=== PATIENT | male | born 1950 | race Caucasian/White ===

== ENCOUNTER 2017-02-22 11:48 | Day surgery (SDC) | payer MEDICARE ==
[2017-02-15 12:29] VITALS: BMI 31.0
[~2017-02-22 11:48] MED LIST: LACTATED RINGERS 1,000 ML IV SCH; LIDOCAINE 1% 20 ML VIAL (10MG/ML) FOR IV START INTRADERMA PRN
[2017-02-22] MEDS: CYCLOPENTOLATE 1% OPHTH SOLN 2 ML BTL OP ONE ×3 (13:20→13:45)
[2017-02-22] MEDS: PHENYLEPHRINE 10% OPHTH DROPS 5 ML BTL OP ONE ×3 (13:25→13:55)
[2017-02-22 13:29] VITALS: RESP 16; TEMP 96.9
[2017-02-22] MEDS: KETOROLAC 0.5% OPHTH DROPS 3 ML BTL OP ONE ×2 (13:30→13:50)
[2017-02-22] MEDS ORDERED: PROPOFOL 10 MG/ML 20 ML VIAL IV ONE (14:09)
[2017-02-22] MEDS ORDERED: EPINEPHrine (PF) 0.5 ML in BALANCED SALT IRRIG SOLN COMB2 500 ML IRRIGATION ONE (14:12)
[2017-02-22] MEDS ORDERED: BALANCED SALT IRRIG SOLN COMB2 15 ML IRRIG.SOLN IRRIGATION ONE (14:15)
[2017-02-22] MEDS ORDERED: HYALURONATE SODIUM INTRAOCULAR 1 EACH SYRINGE (10MG/ML) INTRAOCULA ONE (14:15)
--- NOTE | 2017-02-22 14:34 | P.OP ---
Date of Procedure: 02/22/17 Preoperative Diagnosis: Postoperative Diagnosis: Procedure(s) Performed: PREOPERATIVE DIAGNOSIS: Cataract, right eye. POSTOPERATIVE DIAGNOSIS: Cataract, right eye. OPERATION: Phacoemulsification cataract, right eye. DESCRIPTION OF PROCEDURE: The patient was taken to the preoperative holding area. Intravenous Propofol was given so as to bring about adequate sedation. The following mixture was given for local anesthesia: 5 mL of 2% lidocaine, 5 mL of 0.75% Marcaine, and 1 mL of Wydase. Approximately 4 mL was injected in the retrobulbar space of the surgical eye. Additional 1 mL was then directed to the temporal area of the surgical eye. This was performed to allow adequate neurological block of the facial muscles. The patient was revived and then taken into the operative room. The patient was prepped and draped in the usual sterile manner for the operative eye. A lid speculum was put into position. The conjunctiva was resected back from the limbus in the 12 o'clock position. Bleeding was controlled with electrocautery. A #69 blade was then used and a half-thickness scleral incision approximately 1-mm posterior to the limbus was made on bare sclera. This was shelved in the clear cornea using a crescent knife. Next a 15-degree blade was used to make a stab incision at the 3 o' clock position at the corneolimbal interface. Keratome blade was then used and the superior wound was extended into the anterior chamber. Viscoelastic was injected into the anterior chamber and to maintain its form. A Maluygin ring was injected into the anterior chamber and the pupil was stretched into position. Next, a cystotome was used and a continuous anterior capsulotomy was made without difficulty. Hydrodissection using a blunt cannula and BSS was performed. Phaco probe was then employed and a groove extending from 12 to 6 o' clock in the lens was created. A Isiah wand was used through the stab incision so as to perform a divide and conquer technique. Next an irrigation aspiration probe was utilized and any residual cortex was removed from the eye. Again, viscoelastic was injected into the anterior chamber. An Rashawn posterior chamber lens implant was placed in the cartridge and injected into the anterior chamber without difficulty. The Sinskey hook was utilized to spin the lens into position and this was again performed without any difficulty. The Maluygin ring was removed from the eye. The irrigation and aspiration probe was again employed and any residual viscoelastic was removed from the eye. Then BSS was injected into the limbal stab incision and the anterior chamber re-inflated. The conjunctiva was reapproximated using electrocautery. One drop of 0.25% Timoptic was placed over the corneal along with TobraDex ophthalmic ointment. Two sterile patches and a Benavides eye shield were taped into position. The patient was transported to the recovery room in stable condition. Implants: Pathology: none sent Condition: stable Disposition: same day Indications for Procedure: Operative Findings: Description of Procedure:
[2017-02-22 14:54] VITALS: BP 144/70; PULSE 50
[2017-02-22] MEDS ORDERED: GENTAMICIN/PREDNISOL AC OPHTH OINT 3.5GM OPHTHALMIC ONE (23:00)
[2017-02-22] MEDS ORDERED: TIMOLOL 0.5% OPHTH SOLN (PF) 0.2 ML DROPERETTE OP ONE (23:00)
[2017-02-22] MEDS ORDERED: BUPIVACAINE (PF) 0.75% 5 ML, LIDOCAINE 4% (PF) 5 ML, HYALURONIDASE, HUMAN RECOMB 150 UNIT MISCELLANE ONE ×3 (23:00)
== END 2017-02-22 15:06 | disposition home or self-care (01) ==
LOC: OR 11:48
PROVIDERS: ATTEND Ophthalmology
DX: H25.11 Age-related nuclear cataract, right eye (principal); H40.059 Ocular hypertension, unspecified eye; I10 Essential (primary) hypertension; E78.5 Hyperlipidemia, unspecified; I48.91 Unspecified atrial fibrillation; Z79.82 Long term (current) use of aspirin; Z79.899 Other long term (current) drug therapy; Z88.5 Allergy status to narcotic agent; Z87.891 Personal history of nicotine dependence
CPT/HCPCS: 66984; V2632; J2001; J3470; J0171; J2704

== ENCOUNTER 2017-04-19 08:51 | Day surgery (SDC) | payer MEDICARE ==
[2017-04-15 08:46] VITALS: BMI 31.0
[~2017-04-19 08:51] MED LIST changes: -LIDOCAINE 1% 20 ML VIAL (10MG/ML) FOR IV START INTRADERMA PRN
[2017-04-19] MEDS: PHENYLEPHRINE 10% OPHTH DROPS 5 ML BTL OP ONE ×3 (09:32→09:46)
[2017-04-19 09:34] VITALS: RESP 16
[2017-04-19] MEDS: CYCLOPENTOLATE 1% OPHTH SOLN 2 ML BTL OP ONE ×3 (09:34→09:48)
[2017-04-19] MEDS: KETOROLAC 0.5% OPHTH DROPS 5 ML BTL OP ONE ×3 (09:36→09:50)
[2017-04-19 09:37] VITALS: TEMP 97.8
[2017-04-19] MEDS ORDERED: PROPOFOL 10 MG/ML 20 ML VIAL IV ONE (10:22)
[2017-04-19] MEDS ORDERED: BALANCED SALT IRRIG SOLN COMB2 15 ML IRRIG.SOLN INTRAOCULA ONE (10:23)
[2017-04-19] MEDS ORDERED: HYALURONATE SODIUM INTRAOCULAR 1 EACH SYRINGE (10MG/ML) INTRAOCULA ONE (10:24)
[2017-04-19] MEDS ORDERED: EPINEPHrine (PF) 0.5 ML in BALANCED SALT IRRIG SOLN COMB2 500 ML IRRIGATION ONE (10:28)
--- NOTE | 2017-04-19 10:48 | P.OP ---
Date of Procedure: 04/19/17 Procedure(s) Performed: PREOPERATIVE DIAGNOSIS: Cataract, left eye. POSTOPERATIVE DIAGNOSIS: Cataract, left eye. OPERATION: Phacoemulsification cataract, left eye. DESCRIPTION OF PROCEDURE: The patient was taken to the preoperative holding area. Intravenous Propofol was given so as to bring about adequate sedation. The following mixture was given for local anesthesia: 5 mL of 2% lidocaine, 5 mL of 0.75% Marcaine, and 1 mL of Wydase. Approximately 4 mL was injected in the retrobulbar space of the surgical eye. Additional 1 mL was then directed to the temporal area of the surgical eye. This was performed to allow adequate neurological block of the facial muscles. The patient was revived and then taken into the operative room. The patient was prepped and draped in the usual sterile manner for the operative eye. A lid speculum was put into position. The conjunctiva was resected back from the limbus in the 12 o'clock position. Bleeding was controlled with electrocautery. A #69 blade was then used and a half-thickness scleral incision approximately 1-mm posterior to the limbus was made on bare sclera. This was shelved in the clear cornea using a crescent knife. Next a 15-degree blade was used to make a stab incision at the 3 o' clock position at the corneolimbal interface. Keratome blade was then used and the superior wound was extended into the anterior chamber. Viscoelastic was injected into the anterior chamber and to maintain its form. A Maluygin ring was injected and the pupil was stretched to maintain dilation. Next, a cystotome was used and a continuous anterior capsulotomy was made without difficulty. Hydrodissection using a blunt cannula and BSS was performed. Phaco probe was then employed and a groove extending from 12 to 6 o'clock in the lens was created. A Isiah wand was used through the stab incision so as to perform a divide and conquer technique. Next an irrigation aspiration probe was utilized and any residual cortex was removed from the eye. Again, viscoelastic was injected into the anterior chamber. An Rashawn posterior chamber lens implant was placed in the cartridge and injected into the anterior chamber without difficulty. The Sinskey hook was utilized to spin the lens into position and this was again performed without any difficulty. The Maluygin ring was removed from the eye. The irrigation and aspiration probe was again employed and any residual viscoelastic was removed from the eye. Then BSS was injected into the limbal stab incision and the anterior chamber re- inflated. The conjunctiva was reapproximated using electrocautery. One drop of 0.25% Timoptic was placed over the corneal along with TobraDex ophthalmic ointment. Two sterile patches and a Benavides eye shield were taped into position. The patient was transported to the recovery room in stable condition. Pathology: none sent Condition: stable Disposition: same day
[2017-04-19 11:08] VITALS: BP 165/69; PULSE 43
[2017-04-19] MEDS ORDERED: BUPIVACAINE (PF) 0.75% 5 ML, LIDOCAINE 4% (PF) 5 ML, HYALURONIDASE, HUMAN RECOMB 150 UNIT MISCELLANE ONE ×3 (23:00)
[2017-04-19] MEDS ORDERED: GENTAMICIN/PREDNISOL AC OPHTH OINT 3.5GM OPHTHALMIC ONE (23:00)
[2017-04-19] MEDS ORDERED: TIMOLOL 0.5% OPHTH SOLN (PF) 0.2 ML DROPERETTE OP ONE (23:00)
== END 2017-04-19 11:33 | disposition home or self-care (01) ==
LOC: OR 08:51
PROVIDERS: ATTEND Ophthalmology
DX: H25.12 Age-related nuclear cataract, left eye (principal); H40.059 Ocular hypertension, unspecified eye; I10 Essential (primary) hypertension; I48.91 Unspecified atrial fibrillation; E78.5 Hyperlipidemia, unspecified; Z88.5 Allergy status to narcotic agent; Z79.82 Long term (current) use of aspirin; Z79.899 Other long term (current) drug therapy
CPT/HCPCS: 66984; V2632; J2001; J3470; J0171; J2704

== ENCOUNTER 2018-07-02 21:34 | Observation (INO) | payer MEDICARE ==
[2018-07-02] MEDS ORDERED: NITROGLYCERIN SL TABS 0.4 MG TAB SUBLINGUAL STA (21:55)
[2018-07-02] MEDS ORDERED: ASPIRIN 81 MG PO STA (21:55)
--- NOTE | 2018-07-02 22:07 | ED ---
Chest Pain HPI - General Source: patient, RN notes reviewed Mode of arrival: wheelchair Limitations: no limitations <Konrad Raman - Last Filed: 07/02/18 23:43> <Marisol Jones - Last Filed: 07/07/18 02:02> - General Chief Complaint: Chest Pain Stated Complaint: Chest pain Time Seen by Provider: 07/02/18 21:54 - History of Present Illness Initial Comments: This a 67-year-old male presents emergency Department chief complaint of chest pain. Patient states started around 8:00 this evening. Patient states pain has resolved at this time. He did admit to pressure and feeling that he was suffocating that time. Patient is concerned has he recently had issues with his blood pressure states that his blood pressure has been slightly elevated he does have a follow-up plan with cardiology for this. He's had no prior cardiac or stenting. Patient states she does have a history of hyperlipidemia denies diabetes, smoking history and second heart disease. Patient states his chest pain is resolved no shortness breath at this time he was slightly diaphoretic when the pain started. Patient also minutes is benign. Anxious and he had a recent in the family related to a heart attack. (Konrad Raman) - Related Data Home Medications Medication Instructions Recorded Confirmed Aspirin 81 mg PO DAILY 09/13/14 07/03/18 Lisinopril-Hctz 20-12.5 mg 1 dose PO DAILY 09/13/14 07/03/18 [Zestoretic 20-12.5] Simvastatin [Zocor] 40 mg PO HS 09/13/14 07/03/18 Ascorbic Acid [Vitamin C] 500 mg PO DAILY 06/06/15 07/03/18 Meloxicam [Mobic] 15 mg PO DAILY 06/06/15 07/03/18 Cholecalciferol (Vitamin D3) 2,000 unit PO DAILY 02/15/17 07/03/18 [Vitamin D3] Tamsulosin [Flomax] 0.4 mg PO BID 07/03/18 07/03/18 Previous Rx's Medication Instructions Recorded amLODIPine [Norvasc] 5 mg PO DAILY #30 tab 07/05/18 Allergies Allergy/AdvReac Type Severity Reaction Status Date / Time morphine AdvReac Severe Nausea Verified 07/03/18 08:02 Review of Systems ROS Other: All systems not noted in ROS Statement are negative. <Konrad Raman - Last Filed: 07/02/18 23:43> ROS Other: All systems not noted in ROS Statement are negative. <Marisol Jones Cristina - Last Filed: 07/07/18 02:02> ROS Statement: Those systems with pertinent positive or pertinent negative responses have been documented in the HPI. EKG Findings - EKG Comments: EKG Findings:: EKG performed at 21:48 sinus bradycardia with a rate of 59 CA 180 QRS 82 QT/QTC 418/413 <Konrad Raman - Last Filed: 07/02/18 23:43> Past Medical History Past Medical History: Atrial Fibrillation, Cancer, Eye Disorder, GERD/Reflux, Hyperlipidemia, Hypertension Additional Past Medical History / Comment(s): SKIN CANCER, EPISODE OF A-FIB 2 YRS AGO-NOT PROBLEMS SINCE. CATARACTS History of Any Multi-Drug Resistant Organisms: None Reported Past Surgical History: Appendectomy, Back Surgery, Heart Catheterization, Orthopedic Surgery Additional Past Surgical History / Comment(s): BILATERAL rotator cuff, CYSTS REMOVED FROM NECK AND TAIL BONE, CIRCUMCISION AT AGE 40. ,COLONOSCOPY; R CATARACT Past Anesthesia/Blood Transfusion Reactions: No Reported Reaction Past Psychological History: No Psychological Hx Reported Smoking Status: Never smoker Past Alcohol Use History: None Reported Past Drug Use History: None Reported - Past Family History Father Family Medical History: Cancer Additional Family Medical History / Comment(s): COLON CA Mother Family Medical History: Cancer, Dementia, Diabetes Mellitus, Hypertension <Konrad Raman - Last Filed: 07/02/18 23:43> General Exam Limitations: no limitations General appearance: alert, in no apparent distress Head exam: Present: atraumatic, normocephalic, normal inspection Eye exam: Present: normal appearance, PERRL, EOMI. Absent: scleral icterus, conjunctival injection, periorbital swelling ENT exam: Present: normal exam, normal oropharynx, mucous membranes moist, TM's normal bilaterally, normal external ear exam Neck exam: Present: normal inspection, full ROM. Absent: tenderness, meningismus, lymphadenopathy Respiratory exam: Present: normal lung sounds bilaterally. Absent: respiratory distress, wheezes, rales, rhonchi, stridor Cardiovascular Exam: Present: regular rate, normal rhythm, normal heart sounds. Absent: systolic murmur, diastolic murmur, rubs, gallop, clicks GI/Abdominal exam: Present: soft, normal bowel sounds. Absent: distended, tenderness, guarding, rebound, rigid Back exam: Absent: CVA tenderness (R), CVA tenderness (L) Skin exam: Present: warm, dry, intact, normal color. Absent: rash <Dedoe,Konrad M - Last Filed: 07/02/18 23:43> Vital Signs 07/02/18 07/02/18 07/02/18 21:39 22:02 22:10 Temperature 98.3 F Pulse Rate 62 Pulse Rate [ [employer] ] Respiratory 18 Rate Blood Pressure 180/83 185/92 Blood Pressure [Right Arm] O2 Sat by Pulse 100 99 98 Oximetry 07/02/18 07/02/18 07/02/18 22:20 22:30 22:40 Temperature Pulse Rate 48 L Pulse Rate [ [employer] ] Respiratory 15 Rate Blood Pressure 185/92 185/92 Blood Pressure [Right Arm] O2 Sat by Pulse 99 97 Oximetry 07/02/18 07/02/18 07/02/18 22:50 23:00 23:10 Temperature Pulse Rate 51 L 48 L 40 L Pulse Rate [ [employer] ] Respiratory 14 15 14 Rate Blood Pressure 164/83 161/81 162/87 Blood Pressure [Right Arm] O2 Sat by Pulse 97 98 98 Oximetry 07/02/18 07/02/18 07/02/18 23:20 23:30 23:40 Temperature Pulse Rate 47 L 45 L 48 L Pulse Rate [ [employer] ] Respiratory 16 12 11 L Rate Blood Pressure 174/76 163/80 155/85 Blood Pressure [Right Arm] O2 Sat by Pulse 97 98 98 Oximetry 07/02/18 07/03/18 07/03/18 23:50 00:00 00:06 Temperature Pulse Rate 48 L 47 L 49 L Pulse Rate [ [employer] ] Respiratory 12 17 15 Rate Blood Pressure 166/87 165/82 164/80 Blood Pressure [Right Arm] O2 Sat by Pulse 98 98 98 Oximetry 07/03/18 07/03/18 07/03/18 00:10 00:20 00:30 Temperature Pulse Rate 46 L 48 L 49 L Pulse Rate [ [employer] ] Respiratory 9 L 11 L 12 Rate Blood Pressure 164/80 164/81 150/75 Blood Pressure [Right Arm] O2 Sat by Pulse 98 98 98 Oximetry 07/03/18 07/03/18 07/03/18 00:40 00:50 01:00 Temperature Pulse Rate 48 L 48 L 49 L Pulse Rate [ [employer] ] Respiratory 14 17 15 Rate Blood Pressure 167/82 141/88 165/86 Blood Pressure [Right Arm] O2 Sat by Pulse 96 97 98 Oximetry 07/03/18 07/03/18 07/03/18 01:10 01:20 02:00 Temperature Pulse Rate 45 L 45 L 49 L Pulse Rate [ [employer] ] Respiratory 15 15 17 Rate Blood Pressure 155/84 162/76 154/76 Blood Pressure [Right Arm] O2 Sat by Pulse 98 98 98 Oximetry 07/03/18 07/03/18 07/03/18 03:00 04:00 05:00 Temperature Pulse Rate 44 L 41 L 39 L Pulse Rate [ [employer] ] Respiratory 9 L 15 13 Rate Blood Pressure 167/81 167/81 132/71 Blood Pressure [Right Arm] O2 Sat by Pulse 98 96 98 Oximetry 07/03/18 07/03/18 07/03/18 06:00 08:00 09:43 Temperature Pulse Rate 39 L 48 L Pulse Rate [ 45 L [employer] ] Respiratory 13 18 18 Rate Blood Pressure 132/71 141/74 Blood Pressure 151/81 [Right Arm] O2 Sat by Pulse 98 98 97 Oximetry 07/03/18 07/03/18 07/03/18 11:00 12:00 14:00 Temperature 98.5 F Pulse Rate 45 L 46 L 42 L Pulse Rate [ [employer] ] Respiratory 16 16 15 Rate Blood Pressure 146/71 146/71 152/75 Blood Pressure [Right Arm] O2 Sat by Pulse 98 99 99 Oximetry 07/03/18 15:00 Temperature 97.8 F Pulse Rate 44 L Pulse Rate [ [employer] ] Respiratory 15 Rate Blood Pressure 153/82 Blood Pressure [Right Arm] O2 Sat by Pulse 99 Oximetry Chest Pain MDM <Konrad Raman - Last Filed: 07/02/18 23:43> <Marisol Jones - Last Filed: 07/07/18 02:02> - [facility] Patient had initial workup including lab work, EKG and chest x-ray. Patient had negative troponin, no acute EKG changes. Patient will be placed in the house on heparin with repeat troponins, cardiology evaluation. (Konrad Raman) I was available for consultation in the emergency department. The history and physical exam were done by the midlevel provider. I was consulted for this patient's care. I reviewed the case with the midlevel provider and based on their presentation of the patient, I agree with the assessment, medical decision making and plan of care as documented. I discussed patient care with the admitting physician and placed admission orders. (Marisol Jones) Disposition <Konrad Raman - Last Filed: 07/02/18 23:43> <Marisol Jones - Last Filed: 07/07/18 02:02> Clinical Impression: Chest pain Disposition: ADMITTED IP TO THIS HOSP Condition: Fair
[2018-07-02 22:26] LABS: Basophils # (A) 0.1 k/uL (0-0.2); Basophils % (A) 1 %; Eosinophils # (A) 0.2 k/uL (0-0.7); Eosinophils % (A) 3 %; HCT 42.1 % (39.0-53.0); HGB 14.6 gm/dL (13.0-17.5); Lymphocytes # (A) 1.9 k/uL (1.0-4.8); Lymphocytes % (A) 35 %; MCH 31.6 pg (25.0-35.0); MCHC 34.8 g/dL (31.0-37.0); MCV 90.8 fL (80.0-100.0); Mean Platelet Volume 7.5; Monocytes # (A) 0.4 k/uL (0-1.0); Monocytes % (A) 7 %; Neutrophils # (A) 2.7 k/uL (1.3-7.7); Neutrophils % (A) 51 %; Platelet Count 156 k/uL (150-450); RBC 4.63 m/uL (4.30-5.90); RDW 12.1 % (11.5-15.5); WBC 5.4 k/uL (3.8-10.6)
--- NOTE | 2018-07-02 22:31 | XR ---
EXAMINATION TYPE: XR chest 2V DATE OF EXAM: 07/02/2018 COMPARISON: 06/11/2015 HISTORY: Chest pain TECHNIQUE: Frontal and lateral views of the chest are obtained. FINDINGS: Heart and mediastinum are normal. Lungs are clear. Diaphragm is normal. Bony thorax appear s normal. IMPRESSION: Normal chest. No change.
[2018-07-02 22:34] LABS: INR 0.9 (<1.2); Partial Thromboplastin Time 25.6 sec (22.0-30.0); Prothrombin Time 9.9 sec (9.0-12.0)
[2018-07-02 22:54] LABS: ALT 27 U/L (21-72); AST 27 U/L (17-59); Albumin 4.2 g/dL (3.5-5.0); Alkaline Phosphatase 57 U/L (38-126); Anion Gap 10 mmol/L; Blood Urea Nitrogen 22 mg/dL (9-20); Calcium 9.7 mg/dL (8.4-10.2); Carbon Dioxide 27 mmol/L (22-30); Chloride 102 mmol/L (98-107); Creatine Kinase 128 U/L (55-170); Glucose 100 mg/dL (74-99); Magnesium 2.2 mg/dL (1.6-2.3); Potassium 4.6 mmol/L (3.5-5.1); Sodium 139 mmol/L (137-145); Total Bilirubin 0.5 mg/dL (0.2-1.3); Total Protein 7.1 g/dL (6.3-8.2)
[2018-07-02 23:06] LABS: Creatine Kinase MB 1.1 ng/mL (0.0-2.4); Troponin I <0.012 ng/mL (0.000-0.034)
[2018-07-02] MEDS ORDERED: NITROGLYCERIN SL TABS 0.4 MG TAB SUBLINGUAL PRN (23:44)
[2018-07-02] MEDS ORDERED: HEPARIN SODIUM,PORCINE 5,000 UNIT/ML 1 ML VIAL IV ONE (23:44)
[2018-07-03] MEDS: HEPARIN SOD,PORK IN 0.45% NACL 25,000 UNIT in 0.45% NACL 1 250ML.BAG IV SCH (01:24)
[2018-07-03] MEDS ORDERED: ALPRAZolam 0.25 MG TAB PO PRN (01:30)
[2018-07-03] MEDS ORDERED: TEMAZEPAM 15 MG CAP PO PRN (01:30)
[2018-07-03] MEDS: ACETAMINOPHEN TAB 325 MG TAB PO PRN ×2 (01:36→12:51)
[2018-07-03 03:44] LABS: Cholesterol 159 mg/dL (<200); HDL Cholesterol 68 mg/dL (40-60); LDL Cholesterol,Calculated 82 mg/dL (0-99); Triglycerides 46 mg/dL (<150)
[2018-07-03 04:19] LABS: Creatine Kinase 98 U/L (55-170)
[2018-07-03 04:33] LABS: Creatine Kinase MB 0.8 ng/mL (0.0-2.4); Troponin I <0.012 ng/mL (0.000-0.034)
--- NOTE | 2018-07-03 07:28 | HP ---
HISTORY AND PHYSICAL DATE OF SERVICE: 07/02/2018 CHIEF COMPLAINT: Chest pain. HISTORY OF PRESENT ILLNESS: This is a 67-year-old gentleman with a past medical history of multiple medical problems such as atrial fibrillation, history of GERD, hypertension, hyperlipidemia being followed by Dr. Lemos in the outpatient setting, was admitted to [facility] with complaints of chest pain which was precordial, which was most of a pressure discomfort. Three weeks ago, the patient blood pressure 220/90 and the blood pressure has been monitored. Systolic blood pressure was noted. There is no history of fever or rigors. No history of headache, loss of consciousness, seizures. Patient also had a previous cardiac catheterization about two years ago, but 20% stenosis, results are not available at this time according to him. There is no history of headache, loss of consciousness, seizures at this time. PAST MEDICAL HISTORY: Atrial fibrillation, history of GERD, hypertension, hyperlipidemia, skin cancer, history of back surgery, cardiac catheterization. MEDICATIONS: Home medications prior to admission include: 1. Zocor 40 mg q.h.s. 2. Mobic 15 mg p.o. daily. 3. Zestoretic 10/25 mg p.o. daily. 4. Vitamin D3 two thousand daily. 5. Aspirin 81 mg daily. 6. Vitamin C 500 mg p.o. daily. ALLERGIES: MORPHINE. FAMILY HISTORY: History of colon cancer in the family. SOCIAL HISTORY: No history of smoking, no history of alcohol intake. REVIEW OF SYSTEMS: ENT: No diminished hearing. CARDIOVASCULAR: As mentioned earlier. RESPIRATORY: As mentioned earlier. GI: No nausea. : No dysuria. NERVOUS SYSTEM: No numbness or weakness. ALLERGY/IMMUNOLOGY: No asthma or hayfever. MUSCULOSKELETAL: As mentioned earlier. HEMATOLOGY/ONCOLOGY: No history anemia. ENDOCRINE: No history of diabetes or hypothyroidism. CONSTITUTIONAL: As mentioned earlier. DERMATOLOGY: Negative. RHEUMATOLOGY: Negative. PSYCHIATRY: As mentioned earlier. PHYSICAL EXAMINATION: Patient is alert and oriented x3. Pulse is 45, blood pressure 160/83, respiration 12, temperature normal, pulse ox 98% on room air. HEENT: Conjunctivae normal. Oral mucosa moist. Neck is no jugular venous distention. No carotid bruit, no lymph node enlargement. CARDIOVASCULAR SYSTEM: S1, S2, muffled. RESPIRATION: Breath sounds diminished at the bases, no rhonchi, no crackles. ABDOMEN: Soft, nontender. No mass palpable. LEGS: No edema. No swelling. NERVOUS SYSTEM: Higher functions as mentioned, moves all four limbs. LYMPHATICS: No lymph node enlargement in the neck or axillae. SKIN: No ulcer, rash, or bleeding. LAB STUDIES: CBC within normal limits and BUN is 22 and glucose 100. ASSESSMENT: 1. Chest pain, possible unstable angina. 2. Hypertension. 3. History of bradycardia. 4. Atrial fibrillation history. 5. Gastroesophageal reflux disease. 6. Hypertension. 7. Hyperlipidemia. 8. Appendectomy. 9. Back surgery. 10.History of cardiac catheterization. RECOMMENDATION: In This 67 -year-old gentleman who presented with multiple complex medical issues, will monitor the patient closely. Continue the current medications. Rule out myocardial infarction, pneumonia protocol. Other than that, Cardiology consultation. We will monitor the patient closely and resume the home medications once they are confirmed. Otherwise, will follow the patient closely. Prognosis guarded. Further recommendations to follow. A copy of this will be forwarded to Dr. Lemos who is the primary physician. MMODL / IJN: [id number] /
[2018-07-03 08:24] LABS: Appearance,Urine Clear (Clear); Bilirubin,Urine Negative (Negative); Blood,Urine Negative (Negative); Color,Urine Light Yellow; Glucose,Urine (UA) Negative (Negative); Ketones,Urine Negative (Negative); Leukocyte Esterase,Urine Negative (Negative); Nitrite,Urine Negative (Negative); PH, Urine 6.5 (5.0-8.0); Protein,Urine Negative (Negative); Specific Gravity,Urine 1.008 (1.001-1.035); Urobilinogen,Urine <2.0 mg/dL (<2.0)
[2018-07-03] MEDS: PANTOPRAZOLE 40 MG TABLET PO SCH (08:41)
[2018-07-03] MEDS: ASPIRIN 325 MG TAB PO SCH (08:41)
[2018-07-03 10:46] LABS: Creatine Kinase 88 U/L (55-170)
[2018-07-03 10:57] LABS: Creatine Kinase MB 0.6 ng/mL (0.0-2.4); Troponin I <0.012 ng/mL (0.000-0.034)
[2018-07-03] MEDS ORDERED: TAMSULOSIN 0.4 MG CAP.ER.24H PO STA (12:32)
[2018-07-03] MEDS ORDERED: LISINOPRIL-HCTZ 20-12.5 MG 1 EACH TAB PO STA (12:33)
--- NOTE | 2018-07-03 15:31 | PN ---
PROGRESS NOTE DATE OF SERVICE: 07/03/2018 This 67-year-old gentleman admitted with chest pain is being closely monitored. Cardiology evaluation in progress. No chest pain. No palpitations. No fever at this time. PHYSICAL EXAM: Alert and oriented x3, Pulse is 46, blood pressure 140/47, respirations 16, temperature 98.4, pulse ox 98% on room air. HEENT: Conjunctivae normal. NECK: No jugular venous distension. CARDIOVASCULAR: S1, S2, muffled. RESPIRATORY: Breath sounds diminished at the bases, no rhonchi, no crackles. Abdomen is soft, nontender. LEGS: No edema, no swelling. LABS: CBC within normal limits. Glucose 100. 68. ASSESSMENT: 1. Chest pain, possible unstable angina. 2. Hypertension. 3. Sinus bradycardia. 4. Atrial fibrillation history. 5. Gastroesophageal reflux disease. 6. Hypertension. 7. Hyperlipidemia. 8. Appendectomy. 9. History back surgery. 10.History of cardiac catheterization. RECOMMENDATION: Recommend to continue current management and symptomatic treatment. Otherwise, Cardiology evaluation. The EKG showed sinus bradycardia. Will continue to monitor. Prognosis guarded. Further recommendations to follow. MMODL / IJN: [id number] / MTDD
[2018-07-03] MEDS ORDERED: DOCUSATE 100 MG CAP PO PRN (20:03)
[2018-07-03] MEDS: ATORVASTATIN 20 MG TAB PO SCH (20:10)
[2018-07-03] MEDS: TAMSULOSIN 0.4 MG CAP.ER.24H PO SCH (20:10)
[2018-07-04] MEDS: HEPARIN SOD,PORK IN 0.45% NACL 25,000 UNIT in 0.45% NACL 1 250ML.BAG IV SCH (00:26)
[2018-07-04 07:32] LABS: Basophils % (A) 1 %; Eosinophils # (A) 0.1 k/uL (0-0.7); Eosinophils % (A) 3 %; HCT 42.6 % (39.0-53.0); HGB 13.8 gm/dL (13.0-17.5); Lymphocytes # (A) 1.7 k/uL (1.0-4.8); Lymphocytes % (A) 37 %; MCH 30.5 pg (25.0-35.0); MCHC 32.4 g/dL (31.0-37.0); MCV 94.1 fL (80.0-100.0); Monocytes # (A) 0.2 k/uL (0-1.0); Monocytes % (A) 5 %; Neutrophils # (A) 2.3 k/uL (1.3-7.7); Neutrophils % (A) 51 %; Platelet Count 157 k/uL (150-450); RBC 4.53 m/uL (4.30-5.90); RDW 12.2 % (11.5-15.5); WBC 4.6 k/uL (3.8-10.6)
[2018-07-04 08:02] LABS: Anion Gap 4 mmol/L; Blood Urea Nitrogen 19 mg/dL (9-20); Calcium 9.5 mg/dL (8.4-10.2); Carbon Dioxide 29 mmol/L (22-30); Chloride 105 mmol/L (98-107); Glucose 99 mg/dL (74-99); Potassium 4.9 mmol/L (3.5-5.1); Sodium 138 mmol/L (137-145)
[2018-07-04] MEDS: TAMSULOSIN 0.4 MG CAP.ER.24H PO SCH ×2 (09:39→20:21)
[2018-07-04] MEDS: PANTOPRAZOLE 40 MG TABLET PO SCH (09:39)
[2018-07-04] MEDS: ASPIRIN 325 MG TAB PO SCH (09:39)
[2018-07-04] MEDS: ASCORBIC ACID 500 MG TAB PO SCH (09:39)
[2018-07-04] MEDS: LISINOPRIL-HCTZ 20-12.5 MG 1 EACH TAB PO SCH (11:22)
[2018-07-04] MEDS: amLODIPine 5 MG TAB PO SCH (11:22)
--- NOTE | 2018-07-04 12:55 | P.CRDCN ---
History of Present Illness Consult reason: chest pain History of present illness: This is Dr. Combs dictating a consult on this patient The patient was interviewed and examined by me IMPRESSION / ASSESSMENT: Patient presents with precordial chest discomfort, pressure-like sensation, normal ECG and 3 normal cardiac enzymes Elevated blood pressure, history of essential hypertension Intermittent sinus bradycardia in the 40s, TSH pending No evidence for acute myocardial infarction PLAN: Maximize antihypertensive therapy TSH level Follow-up Dr. Reed as previously scheduled within 2 weeks amlodipine started him a 5 g by mouth daily in addition to Zestoretic HPI Patient presented with precordial chest discomfort, pressure-like sensation Elevated systolic blood pressure. 3 weeks back his systolic blood pressure was 220/90 mmHg History of atrial fibrillation History of essential hypertension on Zestoretic 10/25 mg by mouth daily Past history of coronary angiography ROS: No fever chills or rigors, no cough, phlegm or expectoration, no nausea, vomiting or diarrhea, no hematuria, dysuria, no musculoskeletal complaints, no strokes or seizures, no skin lesions. EXAMINATION on examination his blood pressure is 151/81, 143/63 and 156/60 mmHg Afebrile 97.7F pulse rate in the 60s normal respirations Abdomen soft nontender Extremities warm, no edema Breath sounds are clear no rhonchi no crackles Heart sounds S1 and S2 are normal no murmurs or gallops no rub REVIEW OF LABS, ECG Cardiac enzymes normal 3 LDL 82, HDL 68, total cholesterol 159, triglycerides 46 Hemoglobin 13.8 Normal electrolytes normal renal function Twelve-lead ECG shows sinus rhythm normal MA narrow QRS normal ST segments heart rate 59 beats a minute no ST segment abnormalities suggestive of ischemia or myocardial injury Past Medical History Past Medical History: Atrial Fibrillation, Cancer, Eye Disorder, GERD/Reflux, Hyperlipidemia, Hypertension Additional Past Medical History / Comment(s): bsal cell SKIN CANCER, EPISODE OF A-FIB 2 YRS AGO-NOT PROBLEMS SINCE. CATARACTS(sx done has lens implants), murmur History of Any Multi-Drug Resistant Organisms: None Reported Past Surgical History: Appendectomy, Back Surgery, Heart Catheterization, Orthopedic Surgery Additional Past Surgical History / Comment(s): BILATERAL rotator cuff, CYSTS REMOVED FROM NECK AND TAIL BONE, CIRCUMCISION AT AGE 40. ,COLONOSCOPY benign poly removed; [facility] CATARACT Past Anesthesia/Blood Transfusion Reactions: No Reported Reaction Smoking Status: Never smoker - Past Family History Father Family Medical History: Cancer Additional Family Medical History / Comment(s): COLON CA Mother Family Medical History: Cancer, Dementia, Diabetes Mellitus, Hypertension Medications and Allergies Home Medications Medication Instructions Recorded Confirmed Type Aspirin 81 mg PO DAILY 09/13/14 07/03/18 History Lisinopril-Hctz 20-12.5 mg 1 dose PO DAILY 09/13/14 07/03/18 History [Zestoretic 20-12.5] Simvastatin [Zocor] 40 mg PO HS 09/13/14 07/03/18 History Ascorbic Acid [Vitamin C] 500 mg PO DAILY 06/06/15 07/03/18 History Meloxicam [Mobic] 15 mg PO DAILY 06/06/15 07/03/18 History Cholecalciferol (Vitamin D3) 2,000 unit PO DAILY 02/15/17 07/03/18 History [Vitamin D3] Tamsulosin [Flomax] 0.4 mg PO BID 07/03/18 07/03/18 History Allergies Allergy/AdvReac Type Severity Reaction Status Date / Time morphine AdvReac Severe Nausea Verified 07/03/18 08:02 Physical Exam Vitals: Vital Signs Temp Pulse Pulse Pulse Resp BP BP 07/04/18 03:56 97.7 F 60 18 07/04/18 03:30 18 07/04/18 00:00 18 07/03/18 23:48 98.2 F 49 L 18 119/52 07/03/18 20:00 18 07/03/18 19:54 97.5 F L 50 L 18 07/03/18 16:00 45 L 50 L 18 07/03/18 15:45 97.6 F 50 L 18 149/71 07/03/18 15:00 97.8 F 44 L 15 153/82 07/03/18 14:00 42 L 15 152/75 07/03/18 12:00 98.5 F 46 L 16 146/71 07/03/18 11:00 45 L 16 146/71 07/03/18 09:43 45 L 18 07/03/18 08:00 48 L 18 141/74 BP Pulse Ox 07/04/18 03:56 156/60 98 07/04/18 03:30 07/04/18 00:00 07/03/18 23:48 96 07/03/18 20:00 07/03/18 19:54 143/63 98 07/03/18 16:00 07/03/18 15:45 96 07/03/18 15:00 99 07/03/18 14:00 99 07/03/18 12:00 99 07/03/18 11:00 98 07/03/18 09:43 151/81 97 07/03/18 08:00 98 Intake and Output 07/03/18 07/04/18 07/04/18 22:59 06:59 14:59 Intake Total 240 230.333 Balance 240 230.333 Intake: Intake, IV Titration 230.333 Amount Heparin Sod,Pork in 0.45% 230.333 NaCl 25,000 unit In 0.45 % NaCl 1 250ml.bag @ 10 mls/hr IV .Q24H [facility] Rx#: [id number] Oral 240 Other: Voiding Method Toilet Toilet Urinal Urinal # Voids 2 Weight 95.9 kg Results 07/04/18 06:40 07/04/18 06:40 Cardiac Enzymes 07/03/18 Range/Units 10:05 CK-MB (CK-2) 0.6 (0.0-2.4) ng/mL Troponin I <0.012 (0.000-0.034) ng/mL Coagulation 07/03/18 Range/Units 08:30 APTT 47.1 H (22.0-30.0) sec CBC 07/04/18 Range/Units 06:40 WBC 4.6 (3.8-10.6) k/uL RBC 4.53 (4.30-5.90) m/uL Hgb 13.8 (13.0-17.5) gm/dL Hct 42.6 (39.0-53.0) % Plt Count 157 (150-450) k/uL Current Medications Generic Name Dose Route Start Last Admin Trade Name Freq PRN Reason Stop Dose Admin Acetaminophen 650 mg 07/03/18 01:20 07/03/18 12:51 Tylenol Tab PO 650 mg Q4HR PRN Administration Fever and/ or Pain Alprazolam 0.25 mg 07/03/18 01:30 Xanax PO TID PRN Anxiety Ascorbic Acid 500 mg 07/04/18 09:00 Vitamin C PO DAILY [facility] Aspirin 325 mg 07/03/18 09:00 07/03/18 08:41 Aspirin PO 325 mg DAILY [facility] Administration Atorvastatin Calcium 20 mg 07/03/18 21:00 07/03/18 20:10 Lipitor PO 20 mg HS RIAZ Administration Cholecalciferol 2,000 unit 07/04/18 12:00 Vitamin D3 PO DAILY@1200 RIAZ Docusate Sodium 100 mg 07/03/18 20:03 07/03/18 20:10 Colace PO 100 mg DAILY PRN Administration Constipation Lisinopril/HCTZ 1 each 07/04/18 09:00 Zestoretic 20-12.5 PO DAILY [facility] Heparin Sodium/Sodium Chloride 250 mls @ 10 mls/hr 07/02/18 23:45 07/04/18 00 :26 25,000 unit/ Sodium Chloride IV 10.5 units/kg/hr .Q24H RIAZ 10 mls/hr Administration Protocol Nitroglycerin 0.4 mg 07/02/18 23:44 Nitrostat SUBLINGUAL Q5M PRN Chest Pain Pantoprazole Sodium 40 mg 07/03/18 07:30 07/03/18 08:41 Protonix PO 40 mg AC-BRKFST [facility] Administration Tamsulosin HCl 0.4 mg 07/03/18 21:00 07/03/18 20:10 Flomax PO 0.4 mg BID RIAZ Administration Temazepam 15 mg 07/03/18 01:30 Restoril PO HS PRN Insomnia Intake and Output 07/03/18 07/04/18 07/04/18 22:59 06:59 14:59 Intake Total 240 230.333 Balance 240 230.333 Intake: Intake, IV Titration 230.333 Amount Heparin Sod,Pork in 0.45% 230.333 NaCl 25,000 unit In 0.45 % NaCl 1 250ml.bag @ 10 mls/hr IV .Q24H [facility] Rx#: [id number] Oral 240 Other: Voiding Method Toilet Toilet Urinal Urinal # Voids 2 Weight 95.9 kg 07/04/18 06:40 07/02/18 21:56
--- NOTE | 2018-07-04 14:33 | CT ---
EXAMINATION TYPE: CT brain wo con DATE OF EXAM: 07/04/2018 COMPARISON: None HISTORY: PALMA, elevated BP CT DLP: 1090.4 mGycm Automated exposure control for dose reduction was used. FINDINGS: Ventricles have normal size. There is no mass effect nor midline shift. There is no sign of intracran ial hemorrhage. Calvarium is intact. IMPRESSION: NEGATIVE CT SCAN OF THE BRAIN.
[2018-07-04] MEDS: ACETAMINOPHEN TAB 325 MG TAB PO PRN ×2 (15:49→20:23)
[2018-07-04] MEDS: CHOLECALCIFEROL 1,000 UNIT TAB PO SCH (17:40)
--- NOTE | 2018-07-04 17:44 | PN ---
PROGRESS NOTE DATE OF SERVICE: 07/04/2018 This 67-year-old gentleman who was admitted with chest pain with possible unstable angina, is being closely monitored at this time. The patient also had elevated hypertension, elevated blood pressure. The patient also complains of headache. A CT scan was ordered by me showed no abnormal findings. No chest pain. No palpitation. EXAM: Alert and oriented times three. Pulse is 48, blood pressure is 140/72, respirations 16, temperature 97.4. Pulse ox 100 percent on room air. HEENT: Conjunctivae normal. NECK: No jugular venous distention. CARDIOVASCULAR: S1, S2 muffled. RESPIRATORY: Breath sounds diminished in the bases. No rhonchi. No crackles. ABDOMEN: Soft, nontender. LEGS: No edema. No swelling. NERVOUS SYSTEM: No focal deficits. LABORATORY DATA: CBC, BMP, CMP within normal limits. ASSESSMENT: 1. Chest pain possible unstable angina. 2. Headache. 3. Hypertension. 4. Sinus bradycardia. 5. Atrial fibrillation, history. 6. Gastroesophageal reflux disease. 7. Hyperlipidemia. 8. Appendectomy. 9. History of back surgery. 10.History of cardiac catheterization. RECOMMENDATIONS AND DISCUSSION: Recommend to continue current medications, management and symptomatic treatment. Otherwise, Norvasc has been added. Monitor blood pressure closely. Continue the telemetry. Closely follow with Cardiology. Guarded prognosis. Further recommendations to follow. MMODL / IJN: [id number] /
[2018-07-04] MEDS: ATORVASTATIN 20 MG TAB PO SCH (20:21)
[2018-07-05 07:49] VITALS: RESP 18
[2018-07-05] MEDS: LISINOPRIL-HCTZ 20-12.5 MG 1 EACH TAB PO SCH (08:58)
[2018-07-05] MEDS: TAMSULOSIN 0.4 MG CAP.ER.24H PO SCH (08:58)
[2018-07-05] MEDS: PANTOPRAZOLE 40 MG TABLET PO SCH (08:58)
[2018-07-05] MEDS: ASCORBIC ACID 500 MG TAB PO SCH (08:58)
[2018-07-05] MEDS: ASPIRIN 325 MG TAB PO SCH (08:58)
[2018-07-05] MEDS: CHOLECALCIFEROL 1,000 UNIT TAB PO SCH (09:01)
[2018-07-05 12:21] VITALS: BP 131/66; PULSE 53; TEMP 97.5
[2018-07-05] MEDS: amLODIPine 5 MG TAB PO SCH (15:28)
--- NOTE | 2018-07-06 00:12 | DS ---
DISCHARGE SUMMARY DATE OF SERVICE: 07/05/2017. FINAL DIAGNOSES: 1. Chest pain, possible unstable angina improved. 2. Hypertension. 3. Headaches. 4. Sinus bradycardia. 5. History atrial fibrillation. 6. History of gastroesophageal reflux disease. 7. Hyperlipidemia. 8. Appendectomy. 9. History of back surgery. 10.History of cardiac catheterization. DISCHARGE CONDITION: The patient will be discharged in stable condition with guarded prognosis. HISTORY: This 67-year-old gentleman with a past medical history of multiple medical problems was admitted with features of chest pain. Myocardial infarction ruled out. Cardiology saw the patient. Medical treatment was recommended. The patient improved significant. On exam, vital signs are stable. Cardiovascular, S1 and S2 muffled. Abdomen is soft. Nervous system, no focal deficits. DISCHARGE INSTRUCTIONS: 1. Diet is cardiac. 2. Activity is limited. FOLLOWUP: 1. Follow up with Cardiology as mentioned earlier. 2. Follow up with Dr. Lemos in 2 to 3 days. MEDICATIONS: 1. Vitamin C 500 mg p.o. daily. 2. Aspirin 81 mg daily. 3. Vitamin D3, 2000 daily. 4. lisinopril hctz12.5 mg p.o. daily. 5. Mobic 150 mg p.o. daily. 6. Zocor 40 mg at bedtime. 7. Flomax 0.4 b.i.d. 8. Norvasc 5 mg p.o. daily. Once again, the patient is being discharged in stable condition with guarded prognosis. MMCRISSYL / ANDRAEN: [id number] / MTDD
== END 2018-07-05 15:27 | disposition home or self-care (01) ==
LOC: EC 21:34 → 1SOBS 23:44
PROVIDERS: ADMIT Hospitalist; ATTEND Hospitalist
DX: R07.2 Precordial pain (principal); I10 Essential (primary) hypertension; R51 Headache; R61 Generalized hyperhidrosis; R00.1 Bradycardia, unspecified; I48.91 Unspecified atrial fibrillation; K21.9 Gastro-esophageal reflux disease without esophagitis; E78.5 Hyperlipidemia, unspecified; Z79.899 Other long term (current) drug therapy; Z79.82 Long term (current) use of aspirin; Z79.1 Long term (current) use of non-steroidal anti-inflammatories (NSAID); Z85.828 Personal history of other malignant neoplasm of skin; Z80.0 Family history of malignant neoplasm of digestive organs; Z83.3 Family history of diabetes mellitus; Z82.49 Family history of ischemic heart disease and other diseases of the circulatory system; Z88.5 Allergy status to narcotic agent
CPT/HCPCS: 96366 ×3; 96376; 96365; 99285; 36415; 93005 ×2; 80061; 80053; 80048; 82533; 82550 ×2; 82553 ×2; 83735; 84443; 84484 ×2; 85025 ×2; 85610; 85730 ×3; 81003; 71046; 70450; G0378 ×4; J1644 ×3

== ENCOUNTER → 2019-06-29 | Day surgery (SDC) | payer MEDICARE ==
[2019-06-22 10:12] VITALS: BMI 31.0
[~2019-06-29] MED LIST changes: +ASCORBIC ACID 500 MG TAB PO SCH; +DEXAMETHASONE SOD PHOSPHATE 10 MG/ML 1 ML VIAL IV ONE; +LIDOCAINE 1% 20 ML VIAL (10MG/ML) FOR IV START INTRADERMA PRN; +LISINOPRIL-HCTZ 20-12.5 MG 1 EACH TAB PO SCH; +NON FORMULARY DRUG (Cholecalciferol (Vitamin D3) [Vitamin D3] 2,000 UNIT) PO SCH; +NON FORMULARY DRUG (Simvastatin 40 MG) PO SCH; +PROPOFOL 10 MG/ML 20 ML VIAL IV ONE; +RIVAROXABAN 20 MG TAB PO SCH; +SODIUM CHLORIDE 0.9% 1,000 ML IV ONE; +SODIUM CHLORIDE 0.9% 1,000 ML IV SCH; +TAMSULOSIN 0.4 MG CAP.ER.24H PO SCH; +amLODIPine 5 MG TAB PO SCH
[2019-06-29] MEDS: BENZOCAINE SPRAY 1 CAN TOPICAL ONE ×2 (08:25→08:37)
[2019-06-29 09:05] VITALS: RESP 16
--- NOTE | 2019-06-29 09:06 | ECHOT ---
TRANSESOPHAGEAL ECHOCARDIOGRAM INDICATION: Evaluation left atrial appendage. PROCEDURE: After explaining the procedure to the patient as well as its risks and the complications, his blood pressure, heart rate, O2 saturation were monitored. The throat was sprayed with Cetacaine. He received sedation per anesthesia department. The probe was introduced into the esophagus without difficulties. Images were obtained. Following that, the probe was removed. There was no immediate complication. FINDINGS: Left atrial size is dilated. Left atrial appendage is normal. Left ventricular size and systolic function normal. The aortic valve, mitral valve, tricuspid and pulmonic valve appear to be normal. Descending thoracic aorta appears to be normal. There was no pericardial effusion. Contrast bubble study revealed no evidence of shunting across the interatrial septum. Doppler pulse wave and color Doppler obtained and revealed mild mitral and tricuspid regurgitation. There was no shunting by color Doppler study. CONCLUSION: 1. Dilated left atrium with normal appearance left atrial appendage. 2. Normal left ventricular size and systolic function. 3. Mild mitral and tricuspid regurgitation. 4. Normal appearance of the descending thoracic aorta. 5. No pericardial effusion. MMODL / IJN: [id number] /
--- NOTE | 2019-06-29 09:06 | CE ---
CARDIAC ELECTROPHYSIOLOGY REPORT CARDIOVERSION: INDICATION: Atrial fibrillation. PROCEDURE: After explaining the procedure to the patient, its risks and the complications, after obtaining sedated state per anesthesia department and performing transesophageal echocardiogram, a synchronized biphasic cardioversion using 100 joules was performed with no success. Subsequently, 200 joules was performed with baptism of normal sinus rhythm with ectopic atrial rhythm. There was no immediate complication. MMROMAIN / ANDRAEN: [id number] /
[2019-06-29 10:05] VITALS: BP 112/57; PULSE 52
== END | disposition home or self-care (01) ==
LOC: CATHCVL 07:30
PROVIDERS: ATTEND Internal Medicine Interventional Cardiology
DX: I48.21 Permanent atrial fibrillation (principal); I25.10 Atherosclerotic heart disease of native coronary artery without angina pectoris; I45.89 Other specified conduction disorders; E78.2 Mixed hyperlipidemia; I10 Essential (primary) hypertension; I49.9 Cardiac arrhythmia, unspecified; E78.5 Hyperlipidemia, unspecified; N40.0 Benign prostatic hyperplasia without lower urinary tract symptoms; Z79.01 Long term (current) use of anticoagulants; Z87.891 Personal history of nicotine dependence; Z79.899 Other long term (current) drug therapy; Z88.5 Allergy status to narcotic agent; Z85.828 Personal history of other malignant neoplasm of skin
CPT/HCPCS: 93312; 93320; 93325; 92960; J2704

== ENCOUNTER 2020-04-25 16:28 | Emergency (ER) | payer MEDICARE ==
[2020-04-25 16:44] VITALS: BP 173/77; PULSE 55; RESP 20; TEMP 97.9
--- NOTE | 2020-04-25 17:06 | ED ---
General Adult HPI - General Chief complaint: Urogenital Stated complaint: unable to urinate Time Seen by Provider: 04/25/20 16:46 Source: patient Mode of arrival: ambulatory Limitations: physical limitation - History of Present Illness Initial comments: Dictation was produced using [employer] dictation software. please excuse any grammatical, word or spelling errors. This patient was cared for during a federal and state declared state of emergency secondary to Covid 19 Chief Complaint: 69-year-old male presents with inability urinate History of Present Illness: 69-year-old male presents with inability urinate. he was at the urologist office. He got a prostate biopsy today. Last time patient urinated was approximately 6 hours ago. They called the urologist on- call told to come to the emergency department. Patient has no other complaints at this time. The ROS documented in this emergency department record has been reviewed and confirmed by me. Those systems with pertinent positive or negative responses have been documented in the HPI. All other systems are other negative and/or noncontributory. PHYSICAL EXAM: General Impression: Alert and oriented x3, not in acute distress HEENT: Normocephalic atraumatic, extra-ocular movements intact, pupils equal and reactive to light bilaterally, mucous membranes moist. Cardiovascular: Heart regular rate and rhythm Chest: Able to complete full sentences, no retractions, no tachypnea Abdomen: abdomen soft, non-tender, non-distended, no organomegaly Musculoskeletal: Pulses present and equal in all extremities, no peripheral edema Motor: no focal deficits noted Neurological: CN II-XII grossly intact, no focal motor or sensory deficits noted Skin: Intact with no visualized rashes Psych: Normal affect and mood ED course: 69-year-old male presents with urinary retention status post biopsy. Bladder scan shows approximately 300 mL of urine. Vital signs upon arrival are within acceptable limits. Wisdom catheter is placed. Patient told to follow-up with urologist on Tuesday for reevaluation and possible Wisdom removal.Wisdom catheter was placed. Patient be discharged. He is told to follow-up with Dr. Cummings on Tuesday. - Related Data Home Medications Medication Instructions Recorded Confirmed Lisinopril-Hctz 20-12.5 mg 1 dose PO DAILY 09/13/14 06/29/19 [Zestoretic 20-12.5] Simvastatin [Zocor] 40 mg PO HS 09/13/14 06/29/19 Ascorbic Acid [Vitamin C] 500 mg PO DAILY 06/06/15 06/29/19 Cholecalciferol (Vitamin D3) 2,000 unit PO DAILY 02/15/17 06/29/19 [Vitamin D3] Tamsulosin [Flomax] 0.4 mg PO BID 07/03/18 06/29/19 Rivaroxaban [Xarelto] 20 mg PO HS 06/22/19 06/29/19 amLODIPine [Norvasc] 5 mg PO HS 06/29/19 06/29/19 Allergies Allergy/AdvReac Type Severity Reaction Status Date / Time morphine AdvReac Severe Nausea Verified 04/25/20 16:44 Review of Systems ROS Statement: Those systems with pertinent positive or pertinent negative responses have been documented in the HPI. ROS Other: All systems not noted in ROS Statement are negative. Past Medical History Past Medical History: Atrial Fibrillation, Cancer, Eye Disorder, GERD/Reflux, Hyperlipidemia, Hypertension Additional Past Medical History / Comment(s): bsal cell SKIN CANCER, EPISODE OF A-FIB 2 YRS AGO-NOT PROBLEMS SINCE. CATARACTS(sx done has lens implants), murmur History of Any Multi-Drug Resistant Organisms: None Reported Past Surgical History: Appendectomy, Back Surgery, Heart Catheterization, Orth opedic Surgery Additional Past Surgical History / Comment(s): BILATERAL rotator cuff, CYSTS REMOVED FROM NECK AND TAIL BONE, CIRCUMCISION AT AGE 40. ,COLONOSCOPY benign poly removed; [facility] CATARACT Past Anesthesia/Blood Transfusion Reactions: No Reported Reaction Past Psychological History: No Psychological Hx Reported Smoking Status: Never smoker Past Alcohol Use History: Occasional Past Drug Use History: None Reported - Past Family History Father Family Medical History: Cancer Additional Family Medical History / Comment(s): COLON CA Mother Family Medical History: Cancer, Dementia, Diabetes Mellitus, Hypertension General Exam Limitations: physical limitation Course Vital Signs 04/25/20 16:42 Temperature 97.9 F Pulse Rate 55 L Respiratory 20 Rate Blood Pressure 173/77 O2 Sat by Pulse 99 Oximetry Disposition Clinical Impression: Urinary retention Disposition: HOME SELF-CARE Condition: Good Instructions (If sedation given, give patient instructions): Urinary Retention in Men (ED) Is patient prescribed a controlled substance at d/c from ED?: No Referrals: Skyler Muhammad MD [STAFF PHYSICIAN] - 1-2 days Time of Disposition: 17:23
== END 2020-04-25 17:39 | disposition home or self-care (01) ==
LOC: EC 16:28
DX: R33.9 Retention of urine, unspecified (principal); I10 Essential (primary) hypertension; I48.91 Unspecified atrial fibrillation; E78.5 Hyperlipidemia, unspecified; Z79.899 Other long term (current) drug therapy; Z79.01 Long term (current) use of anticoagulants; Z88.5 Allergy status to narcotic agent; Z85.828 Personal history of other malignant neoplasm of skin; Z98.890 Other specified postprocedural states
CPT/HCPCS: 51702; 51798; 99283

== ENCOUNTER → 2020-06-18 | Outpatient (CLI) | payer MEDICARE ==
[2020-06-18 10:32] LABS: Basophils # (A) 0.1 k/uL (0-0.2); Basophils % (A) 1 %; Eosinophils # (A) 0.1 k/uL (0-0.7); Eosinophils % (A) 1 %; HCT 45.3 % (39.0-53.0); HGB 15.3 gm/dL (13.0-17.5); Lymphocytes # (A) 1.3 k/uL (1.0-4.8); Lymphocytes % (A) 28 %; MCH 32.2 pg (25.0-35.0); MCHC 33.8 g/dL (31.0-37.0); MCV 95.4 fL (80.0-100.0); Mean Platelet Volume 8.5; Monocytes # (A) 0.5 k/uL (0-1.0); Monocytes % (A) 10 %; Neutrophils # (A) 2.7 k/uL (1.3-7.7); Neutrophils % (A) 57 %; Platelet Count 148 k/uL (150-450); RBC 4.74 m/uL (4.30-5.90); RDW 11.9 % (11.5-15.5); WBC 4.7 k/uL (3.8-10.6)
[2020-06-18 10:43] LABS: African American GFR (CKD) >90 (>60 ml/min/1.73 sqM); Anion Gap 4 mmol/L; Blood Urea Nitrogen 19 mg/dL (9-20); Calcium 9.3 mg/dL (8.4-10.2); Carbon Dioxide 32 mmol/L (22-30); Chloride 101 mmol/L (98-107); Glucose 100 mg/dL (74-99); Non-African American GFR(CKD) 84 (>60 ml/min/1.73 sqM); Potassium 4.8 mmol/L (3.5-5.1); Sodium 137 mmol/L (137-145)
== END | disposition home or self-care (01) ==
LOC: LABPAT 09:45
PROVIDERS: ATTEND Urology
DX: Z01.818 Encounter for other preprocedural examination (principal); C61 Malignant neoplasm of prostate; I10 Essential (primary) hypertension
CPT/HCPCS: 80048; 85025; 86850; 86900; 86901

== ENCOUNTER 2020-06-25 10:52 | Day surgery (SDC) | payer MEDICARE ==
--- NOTE | 2020-06-24 13:10 | P.GSHP ---
History of Present Illness H&P Date: 06/19/20 Chief Complaint: Prostate Cancer The patient is a 69-year-old white male with a persistently elevated PSA level which increased to 6.3 in March 2020. His father had prostate cancer. JESSENIA revealed the prostate to be moderately enlarged but smooth. He underwent a prostate ultrasound, revealing a prostate volume of 37 mL. 6 out of 12 biopsies showed evidence of Sony 7 (3+4, 4+3) prostate cancer. The Polaris score was 3.7. I had a lengthy discussion with the patient and his . The pros and cons of IMRT with androgen deprivation therapy versus robotic-assisted laparoscopic prostatectomy (RALP) were discussed at length. He has elected to undergo the latter. - Constitutional Constitutional: Denies chills, Denies fever - Genitourinary (Male) Genitourinary: Reports erectile dysfunction, Reports nocturia, Reports urinary frequency Past Medical History Past Medical History: Atrial Fibrillation, Cancer, Eye Disorder, GERD/Reflux, Hyperlipidemia, Hypertension Additional Past Medical History / Comment(s): bsal cell SKIN CANCER, EPISODE OF A-FIB 2 YRS AGO-NOT PROBLEMS SINCE. CATARACTS(sx done has lens implants), murmur History of Any Multi-Drug Resistant Organisms: None Reported Past Surgical History: Appendectomy, Back Surgery, Heart Catheterization, Orthopedic Surgery Additional Past Surgical History / Comment(s): BILATERAL rotator cuff, CYSTS REMOVED FROM NECK AND TAIL BONE, CIRCUMCISION AT AGE 40. ,COLONOSCOPY benign poly removed; [employer] CATARACT Past Anesthesia/Blood Transfusion Reactions: No Reported Reaction Past Psychological History: No Psychological Hx Reported Smoking Status: Never smoker Past Alcohol Use History: Occasional Past Drug Use History: None Reported - Past Family History Father Family Medical History: Cancer Additional Family Medical History / Comment(s): COLON CA Mother Family Medical History: Cancer, Dementia, Diabetes Mellitus, Hypertension Medications and Allergies Home Medications Medication Instructions Recorded Confirmed Type Lisinopril-Hctz 20-12.5 mg 1 dose PO DAILY 09/13/14 06/23/20 History [Zestoretic 20-12.5] Simvastatin [Zocor] 40 mg PO HS 09/13/14 06/23/20 History Ascorbic Acid [Vitamin C] 500 mg PO DAILY 06/06/15 06/23/20 History Cholecalciferol (Vitamin D3) 2,000 unit PO DAILY 02/15/17 06/23/20 History [Vitamin D3] Tamsulosin [Flomax] 0.4 mg PO BID 07/03/18 06/23/20 History Rivaroxaban [Xarelto] 20 mg PO 1800 06/22/19 06/23/20 History amLODIPine [Norvasc] 5 mg PO HS 06/29/19 06/23/20 History Famotidine [Pepcid AC] 40 mg PO DAILY 06/23/20 06/23/20 History Zinc 50 mg PO DAILY 06/23/20 06/23/20 History Allergies Allergy/AdvReac Type Severity Reaction Status Date / Time morphine AdvReac Severe Nausea & Verified 06/23/20 11:23 Vomiting Surgical - Exam - General well developed, well nourished, no distress - Respiratory normal respiratory effort - Abdomen Abdomen: soft, non tender, no guarding, no rigid, no rebound Hernia: none - Genitourinary normal penis with no external lesions, testicles non-tender - Rectum Rectum: normal sphincter tone, no masses, other (prostate moderately enlarged and smooth) - Psychiatric oriented to time, oriented to person, oriented to place, speech is normal, memory intact Assessment and Plan (1) Malignant neoplasm of prostate Status: Acute Code(s): C61 - MALIGNANT NEOPLASM OF PROSTATE SNOMED Code(s): 238932945 Plan: Robotic-assisted laparoscopic prostatectomy with bilateral pelvic lymphadenectomy. The procedure has been reviewed in detail with the patient. I explained in great detail the potential risks, which include anesthesia, bleeding, and infection. In addition, I went into great detail concerning the possibility of postop urinary incontinence, which may fail to resolve. I explained that other complications include intestinal injury (which may require a colostomy), ureteral injury, swelling of the penis post-operatively, bladder neck contracture, urethral stricture, lymphocele, post-operative ileus, thrombophlebitis, wound separation, and possible urinary fistula. The patient has also been advised of the possibility of treatment failure, and the possible need for adjuvant therapy. The decision has been made not to preserve the neurovascular bundles.
[~2020-06-25 10:52] MED LIST changes: -ASCORBIC ACID 500 MG TAB PO SCH; -DEXAMETHASONE SOD PHOSPHATE 10 MG/ML 1 ML VIAL IV ONE; +DEXAMETHASONE SOD PHOSPHATE 4 MG/ML 1 ML VIAL IV ONE; -LACTATED RINGERS 1,000 ML IV SCH; +LIDOCAINE 1% (10MG/ML) FOR IV START INTRADERMA PRN; -LIDOCAINE 1% 20 ML VIAL (10MG/ML) FOR IV START INTRADERMA PRN; -LISINOPRIL-HCTZ 20-12.5 MG 1 EACH TAB PO SCH; +MIDAZOLAM 2 MG/2 ML VIAL IV PRN; -NON FORMULARY DRUG (Cholecalciferol (Vitamin D3) [Vitamin D3] 2,000 UNIT) PO SCH; -NON FORMULARY DRUG (Simvastatin 40 MG) PO SCH; -PROPOFOL 10 MG/ML 20 ML VIAL IV ONE; -RIVAROXABAN 20 MG TAB PO SCH; -SODIUM CHLORIDE 0.9% 1,000 ML IV ONE; -SODIUM CHLORIDE 0.9% 1,000 ML IV SCH; -TAMSULOSIN 0.4 MG CAP.ER.24H PO SCH; -amLODIPine 5 MG TAB PO SCH
[2020-06-25] MEDS ORDERED: ONDANSETRON 4 MG/2 ML VIAL ONE (11:08)
[2020-06-25] MEDS ORDERED: LACTATED RINGERS 1,000 ML IV ONE ×3 (11:12→16:15)
[2020-06-25] MEDS ORDERED: HEPARIN SODIUM,PORCINE 5,000 UNIT/ML 1 ML VIAL ONE (11:34)
[2020-06-25] MEDS ORDERED: HEPARIN SODIUM,PORCINE 5,000 UNIT/ML 1 ML VIAL SQ ONE (11:37)
[2020-06-25] MEDS ORDERED: SUCCINYLCHOLINE CHLORIDE 100 MG/5 ML SYR IV ONE (12:19)
[2020-06-25] MEDS ORDERED: MIDAZOLAM 2 MG/2 ML VIAL ONE (12:19)
[2020-06-25] MEDS ORDERED: HYDROmorphone (PF) 1 MG/ML ONE (12:19)
[2020-06-25] MEDS ORDERED: LIDOCAINE 1% INJ 10MG/ML (20 ML MDV) ONE (12:19)
[2020-06-25] MEDS ORDERED: fentaNYL (PF) 50 MCG/ML 2 ML AMP ONE (12:19)
[2020-06-25] MEDS ORDERED: ePHEDrine SULFATE/0.9% NACL/PF 50 MG/5 ML SYRINGE IV ONE (12:19)
[2020-06-25] MEDS ORDERED: PROPOFOL 10 MG/ML 20 ML VIAL IV ONE (12:19)
[2020-06-25] MEDS ORDERED: NEOSTIGMINE 1 MG/ML 10 ML VIAL ONE (12:19)
[2020-06-25] MEDS ORDERED: ROCURONIUM 10 MG/ML (10 ML VIAL) IV ONE (12:19)
[2020-06-25] MEDS ORDERED: GLYCOPYRROLATE 0.2 MG/ML 2 ML VIAL ONE (12:19)
[2020-06-25] MEDS ORDERED: BUPIVACAINE (PF) 0.25% 30 ML VIAL SQ ONE (13:00)
[2020-06-25] MEDS: HYDROmorphone 0.5 MG/0.5 ML SYRINGE IVP PRN ×4 (16:35→17:09)
--- NOTE | 2020-06-25 16:35 | P.OP ---
Date of Procedure: 06/25/20 Preoperative Diagnosis: Adenocarcinoma of the prostate Postoperative Diagnosis: Same Procedure(s) Performed: Robotic-assisted laparoscopic prostatectomy (RALP) with bilateral pelvic lymphadenectomy Anesthesia: JULISSA Surgeon: Skyler Muhammad Estimated Blood Loss (ml): 75 IV fluids (ml): 1,100 Condition: stable Disposition: PACU Indications for Procedure: The patient is a 69-year-old white male with a persistently elevated PSA level which increased to 6.3 in March 2020. His father had prostate cancer. JESSENIA revealed the prostate to be moderately enlarged but smooth. He underwent a prostate ultrasound, revealing a prostate volume of 37 mL. 6 out of 12 biopsies showed evidence of Sony 7 (3+4, 4+3) prostate cancer. The Polaris score was 3.7. He has elected to undergo a robotic-assisted laparoscopic prostatectomy (RALP). Operative Findings: No evidence of extraprostatic disease Description of Procedure: The patient was taken in the operating room and placed in the dorsal lithotomy position, with his legs supported in Shorty stirrups. He was carefully positioned on a beanbag for stability. The abdomen and external genitalia were prepped and draped sterilely. A Wisdom catheter was inserted. The Veress needle was passed through the anterior abdominal wall immediately cephalad to the umbilicus, and insufflation was performed to a pressure of 20 mm Hg. Once insufflation was performed, the Veress needle was removed and a supraumbilical incision was made, through which a 12 mm camera port was placed. Under camera guidance, 3 8 mm robotic ports were placed, 2 on the left and one on the right. An additional 12 mm port was placed on the right lateral side for use as an engineer first assistant port. A 5 mm port was placed to the right of the camera port for suction. The patient was placed in Trendelenburg position, and docking was then performed to the da Kahlil system utilizing a 4-arm approach. The abdomen was examined. The sigmoid colon was mobilized out of the pelvis. Several right lower quadrant adhesions were taken down. The peritoneum was incised lateral to the medial umbilical ligaments bilaterally, exposing the pubis. The peritoneum was then incised across the midline, allowing the bladder flap to be taken down. The endopelvic fascia was opened bilaterally, and muscular attachments from the urogenital diaphragm were swept away from the prostate. Bilateral pelvic lymphadenectomies were performed in the standard fashion. The peritoneal incisions were extended in a cephalad direction, and the vas deferens were divided bilaterally. Margins of dissection were the bifurcation of the iliac vessels proximally, the circumflex iliac vein distally, the external iliac artery laterally, and the obturator nerve medially. A combination of sharp and blunt dissection was used. Care was taken to avoid any neurovascular injury, and the use of monopolar electrocautery was avoided immediately adjacent to neurovascular structures. The lymphatic package was clipped distally. No enlarged lymph nodes were encountered. There were no complications. The vesical neck was incised transversely, down to the lumen. The Wisdom catheter was brought out through the anterior vesical neck incision and was used for traction. The posterior aspect of the vesical neck was incised, such that the full-thickness of the vesical neck was divided. The anterior layer of the Denonvilliers fascia was incised, exposing the vas deferens. Each were isolated and divided. Next, each of the seminal vesicles were dissected away from adjacent tissues, and vascular attachments were cauterized and divided. The posterior leaf of Denonvilliers fascia was incised transversely, allowing entry into the plane between the prostate and rectum. With lateral spreading, this plane was developed down to the apex. This exposed the lateral vascular pedicles bilaterally. These were clipped and divided in an antegrade fashion, down to the apex. A nerve sparing procedure was not performed. The remaining apical attachments were swept away from the prostate. The dorsal venous complex was incised, as well as periurethral tissue. At this point, only the urethra remained intact. This was transected immediately distal to the prostatic apex using cold scissors. The specimen was placed within a specimen bag. The dorsal venous complex was sutured using a V-Loc suture in a running fashion. The suture was passed through the periosteum of the pubis periurethral support. Excellent hemostasis was attained. A second V-Loc suture was then used to place the John stitch, incorporating the rhabdosphincter and the edge of Denonvilliers fascia. This allowed the bladder to be taken down to the urethra, leaving the vesical neck immediately adjacent to the urethra. The vesicourethral anastomosis was then performed using a V-Loc suture in a running fashion. After completing the anastomosis, an 18-[place] Wisdom catheter was placed and approximately 150 mL of 0.9 normal saline were instilled into the b ladder. No extravasation of irrigant from the vesicourethral anastomosis was noted. Surgicel was placed over the vascular pedicles bilaterally. The patient was returned to the supine position. Undocking was performed, and the specimen bag sutures were passed through the camera port. After removing all the ports and allowing all of the CO2 to be released from the peritoneal cavity, the camera port incision was enlarged to allow removal of the surgical specimen. The fascia of this incision was then closed using 0-PDS suture in a running fashion. Each of the skin incisions were then closed using 4-0 Monocryl suture in a subcuticular fashion. Marcaine was injected at each of the incision sites. Dermabond was applied to each incision. The Wisdom catheter was connected to gravity drainage. All sponge and needle counts were correct. The patient tolerated the procedure well was taken to the recovery room in stable condition.
[2020-06-25] MEDS ORDERED: HYDROmorphone 1 MG/ML 1 ML SYRINGE IVP PRN (16:37)
[2020-06-25] MEDS ORDERED: ACETAMINOPHEN TAB 325 MG TAB PO PRN (16:37)
[2020-06-25] MEDS ORDERED: MAG HYDROX/AL HYDROX/SIMETH 30 ML CUP PO PRN (16:37)
[2020-06-25 16:55] VITALS: RESP 16
[2020-06-25] MEDS: LACTATED RINGERS 1,000 ML IV SCH ×2 (17:13→17:57)
[2020-06-25] MEDS: DEXTROSE 5%-0.45% NACL 1,000 ML IV SCH (17:58)
[2020-06-25] MEDS: ONDANSETRON 4 MG/2 ML VIAL IVP PRN (19:36)
[2020-06-25] MEDS ORDERED: amLODIPine 5 MG TAB PO SCH (21:00)
[2020-06-25] MEDS ORDERED: ATORVASTATIN 20 MG TAB PO SCH (21:00)
[2020-06-25] MEDS: HEPARIN SODIUM,PORCINE 5,000 UNIT/ML 1 ML VIAL SQ SCH (21:31)
[2020-06-26] MEDS: KETOROLAC 15 MG/ML 1 ML VIAL IVP PRN ×2 (01:28→08:10)
[2020-06-26] MEDS: DEXTROSE 5%-0.45% NACL 1,000 ML IV SCH ×2 (02:46→10:04)
[2020-06-26] MEDS: ONDANSETRON 4 MG/2 ML VIAL IVP PRN (03:07)
[2020-06-26] MEDS: HEPARIN SODIUM,PORCINE 5,000 UNIT/ML 1 ML VIAL SQ SCH (08:11)
--- NOTE | 2020-06-26 08:21 | P.PN ---
Subjective Progress Note Date: 06/26/20 Principal diagnosis: POD #1, s/p RALP The patient experienced nausea overnight. This is somewhat improved this morning, as he tolerated breakfast in small amounts. He reports incisional discomfort. He also reports a feeling of bladder fullness. Objective - Vital Signs Vital signs: Vital Signs Temp 97.5 F L 06/26/20 08:00 Pulse 57 L 06/26/20 08:00 Resp 16 06/26/20 08:00 BP 124/56 06/26/20 08:00 Pulse Ox 97 06/26/20 08:00 Intake & Output 06/25/20 06/26/20 06/26/20 18:59 06:59 18:59 Intake Total 1650 Output Total 295 450 Balance 1355 -450 Weight 96.2 kg 96.2 kg Intake: IV 1650 Output: Urine 220 450 Estimated Blood Loss 75 Other: Voiding Method Indwelling Catheter - Constitutional General appearance: Present: cooperative, no acute distress - Gastrointestinal Gastrointestinal Comment(s): Soft, non-distended. Incisions clean, dry, and intact. - Psychiatric Psychiatric: Present: A&O x's 3, appropriate affect Assessment and Plan (1) Malignant neoplasm of prostate Current Visit: No Status: Acute Code(s): C61 - MALIGNANT NEOPLASM OF PROSTATE SNOMED Code(s): 699521252 Plan: The Wisdom catheter was somewhat taut. It was repositioned, and approximately 300 mL of clear yellow urine promptly drained. The tab which secures the cathet er to the patient's thigh will be repositioned to the medial thigh to ensure that there is always slack in the catheter. The patient was advised to ambulate and see how he feels as the day progresses. I am hopeful that he will be discharged home later today.
[2020-06-26] MEDS ORDERED: DOCUSATE 100 MG CAP PO SCH (09:00)
[2020-06-26] MEDS ORDERED: LISINOPRIL-HCTZ 20-12.5 MG 1 EACH TAB PO SCH (09:00)
[2020-06-26] MEDS ORDERED: FAMOTIDINE 20 MG TAB PO SCH (09:00)
[2020-06-26] MEDS ORDERED: HYDROcodone/APAP 5-325MG 1 EACH TAB PO PRN ×2 (13:50)
--- NOTE | 2020-06-26 13:50 | P.DS ---
Providers Expected date of discharge: 06/26/20 Attending physician: Skyler Muhammad Primary care physician: Raffaele Lemos - Discharge Diagnosis(es) (1) Malignant neoplasm of prostate Current Visit: No Status: Acute Hospital Course: On the day of admission, the patient underwent an uncomplicated RALP. He experienced nausea the night of surgery, which resolved by the time of discharge. His catheter was draining suboptimally on the first morning following surgery, but the catheter drained well upon readjustment. He remained afebrile with stable vital signs. He reported incisional discomfort which was controlled with analgesics. Procedures: Robotic-assisted laparoscopic prostatectomy (RALP) with bilateral pelvic lymphadenectomy on 06/25/2020. Patient Condition at Discharge: Good Plan - Discharge Summary Discharge Rx Participant: Yes New Discharge Prescriptions: New Ciprofloxacin HCl [Cipro] 250 mg PO Q12HR #6 tablet Ketorolac [Toradol] 10 mg PO Q6HR PRN #15 tab PRN Reason: Moderate To Severe Pain No Action Simvastatin [Zocor] 40 mg PO HS Lisinopril-Hctz 20-12.5 mg [Zestoretic 20-12.5] 1 dose PO DAILY Ascorbic Acid [Vitamin C] 500 mg PO DAILY Cholecalciferol (Vitamin D3) [Vitamin D3] 2,000 unit PO DAILY Tamsulosin [Flomax] 0.4 mg PO BID Rivaroxaban [Xarelto] 20 mg PO 1800 amLODIPine [Norvasc] 5 mg PO HS Famotidine [Pepcid AC] 40 mg PO DAILY Zinc 50 mg PO DAILY Discharge Medication List Lisinopril-Hctz 20-12.5 mg [Zestoretic 20-12.5] 1 dose PO DAILY 09/13/14 [History] Simvastatin [Zocor] 40 mg PO HS 09/13/14 [History] Ascorbic Acid [Vitamin C] 500 mg PO DAILY 06/06/15 [History] Cholecalciferol (Vitamin D3) [Vitamin D3] 2,000 unit PO DAILY 02/15/17 [History] Tamsulosin [Flomax] 0.4 mg PO BID 07/03/18 [History] Rivaroxaban [Xarelto] 20 mg PO 1800 06/22/19 [History] amLODIPine [Norvasc] 5 mg PO HS 06/29/19 [History] Famotidine [Pepcid AC] 40 mg PO DAILY 06/23/20 [History] Zinc 50 mg PO DAILY 06/23/20 [History] Ciprofloxacin HCl [Cipro] 250 mg PO Q12HR #6 tablet 06/26/20 [Rx] Ketorolac [Toradol] 10 mg PO Q6HR PRN #15 tab 06/26/20 [Rx] Follow up Appointment(s)/Referral(s): Skyler Muhammad MD [STAFF PHYSICIAN] - 07/03/20 Activity/Diet/Wound Care/Special Instructions: Discharge home with Wisdom catheter. Instruct patient to use overnight drainage bag as well as urinary leg bag. The leg bag should be used on the patient's left thigh. Okay to shower. Diet as tolerated. No lifting, driving, or strenuous activity. Reassure patient that abdominal wall ecchymosis and penoscrotal swelling are normal. Instruct patient to begin taking antibiotics one day prior to Wisdom catheter removal. Discontinue tamsulosin. Resume Xarelto 06/28/2020. Discharge Disposition: HOME SELF-CARE
[2020-06-26 14:21] VITALS: BMI 31.3
[2020-06-26 14:45] VITALS: BP 136/67; PULSE 56; TEMP 98.1
== END 2020-06-26 16:42 | disposition home or self-care (01) ==
LOC: OR 10:52 → 4SSUR 16:15 → OR 06-26 16:42
PROVIDERS: ATTEND Urology
DX: C61 Malignant neoplasm of prostate (principal); I48.91 Unspecified atrial fibrillation; K21.9 Gastro-esophageal reflux disease without esophagitis; E78.5 Hyperlipidemia, unspecified; I10 Essential (primary) hypertension; Z85.828 Personal history of other malignant neoplasm of skin; Z98.42 Cataract extraction status, left eye; Z98.41 Cataract extraction status, right eye; Z96.1 Presence of intraocular lens; Z98.890 Other specified postprocedural states; Z80.0 Family history of malignant neoplasm of digestive organs; Z80.9 Family history of malignant neoplasm, unspecified; Z83.3 Family history of diabetes mellitus; Z81.8 Family history of other mental and behavioral disorders; Z82.49 Family history of ischemic heart disease and other diseases of the circulatory system; Z79.01 Long term (current) use of anticoagulants; Z79.899 Other long term (current) drug therapy; Z88.5 Allergy status to narcotic agent
CPT/HCPCS: 55866; 38571; J1644 ×2; J1100; J0690; J2405 ×2; J1885; J1170; 86850; 86900; 86901

== ENCOUNTER 2020-11-10 09:53 | Day surgery (SDC) | payer MEDICARE ==
[2020-11-06 14:25] VITALS: BMI 31.3
[~2020-11-10 09:53] MED LIST changes: -DEXAMETHASONE SOD PHOSPHATE 4 MG/ML 1 ML VIAL IV ONE; -LIDOCAINE 1% (10MG/ML) FOR IV START INTRADERMA PRN; -MIDAZOLAM 2 MG/2 ML VIAL IV PRN; +SODIUM CHLORIDE 0.9% 1,000 ML IV SCH
[2020-11-10 10:59] VITALS: RESP 16; TEMP 98.7
[2020-11-10] MEDS ORDERED: LIDOCAINE 1% INJ 10MG/ML (20 ML MDV) ONE (11:53)
[2020-11-10] MEDS ORDERED: PROPOFOL 10 MG/ML 20 ML VIAL IV ONE (11:53)
[2020-11-10] MEDS ORDERED: SODIUM CHLORIDE 0.9% 1,000 ML IV SCH (12:30)
--- NOTE | 2020-11-10 12:42 | CE ---
CARDIAC ELECTROPHYSIOLOGY REPORT CARDIOVERSION PROCEDURE NOTE: INDICATION: Atrial fibrillation. PROCEDURE: After explaining the procedure to the patient, its risks and the complications, after obtaining sedated state and performing transesophageal echocardiogram, a synchronized biphasic cardioversion was performed using 200 joules. There was no immediate complication. JUDIT / NISHA: [id number] /
--- NOTE | 2020-11-10 14:16 | ECHOT ---
TRANSESOPHAGEAL ECHOCARDIOGRAM INDICATION: Evaluation of left atrial appendage. PROCEDURE: After explaining the procedure to the patient, its risks and the complications, his blood pressure, heart rate, O2 saturation was monitored. The throat was sprayed with Cetacaine. He received sedation per anesthesia department. The probe was introduced into the esophagus without difficulty. Images were obtained. Following that, the probe was removed. There was no immediate complication. FINDINGS: Left atrial size is dilated. Left atrial appendage is normal. Left ventricular size and systolic function normal. The aortic valve appears to be normal. Mitral valve is normal. Tricuspid valve is normal. Descending thoracic aorta appears to be normal. Contrast bubble study revealed no shunting across the interatrial septum. No pericardial effusion was noted. Doppler pulse wave and color Doppler obtained revealed mild mitral and tricuspid regurgitation. There was no shunting by color Doppler study. CONCLUSION: 1. Normal left ventricular size and systolic function. 2. Mildly dilated left atrium and normal appearance left atrial appendage. 3. Mild mitral and tricuspid regurgitation. 4. Normal appearance of descending thoracic aorta. 5. No pericardial effusion. MMODL / IJN: [id number] /
[2020-11-10 15:35] VITALS: BP 142/77; PULSE 54
[2020-11-10] MEDS ORDERED: RIVAROXABAN 20 MG TAB PO SCH (18:00)
[2020-11-10] MEDS ORDERED: ATORVASTATIN 20 MG TAB PO SCH (21:00)
[2020-11-10] MEDS ORDERED: amLODIPine 5 MG TAB PO SCH (21:00)
[2020-11-11] MEDS ORDERED: LISINOPRIL-HCTZ 20-12.5 MG 1 EACH TAB PO SCH (09:00)
== END 2020-11-10 14:16 | disposition home or self-care (01) ==
LOC: CATHCVL 09:53
PROVIDERS: ATTEND Internal Medicine Interventional Cardiology
DX: I48.21 Permanent atrial fibrillation (principal); I08.1 Rheumatic disorders of both mitral and tricuspid valves; I25.10 Atherosclerotic heart disease of native coronary artery without angina pectoris; I45.89 Other specified conduction disorders; I10 Essential (primary) hypertension; E78.2 Mixed hyperlipidemia; F17.210 Nicotine dependence, cigarettes, uncomplicated; Z20.822 Contact with and (suspected) exposure to COVID-19; Z79.01 Long term (current) use of anticoagulants; Z79.899 Other long term (current) drug therapy; Z88.5 Allergy status to narcotic agent
CPT/HCPCS: 93312; 93320; 93325; 92960; 87635; J2001; J2704

== ENCOUNTER 2020-12-04 10:52 | Observation (INO) | payer MEDICARE ==
[2020-12-04] MEDS ORDERED: SODIUM CHLORIDE 0.9% 1,000 ML IV STA (12:20)
[2020-12-04] MEDS ORDERED: MECLIZINE 12.5 MG TAB PO STA (12:21)
--- NOTE | 2020-12-04 12:23 | ED ---
General Adult HPI - General Chief complaint: Headache Stated complaint: Dizziness, Headache, sent by DR Ignacio Seen by Provider: 12/04/20 11:44 Source: patient, family (), RN notes reviewed Mode of arrival: wheelchair Limitations: no limitations - History of Present Illness Initial comments: Well-appearing, alert and oriented 4, 70-year-old white male in no acute distress, presents with his to the emergency room with complaints of frontal headache and dizziness since Tuesday. Patient states that he has positional dizziness that is worse when he turns his head or stands up suddenly. Patient states that he has history of atrial fibrillation and had an ablation done about [address] Garces. Patient had a Holter monitor on for 24 hours but had no issues. Patient states that he has had this dizziness for 2 days with a frontal headache 6 out of 10. To take Tylenol with some relief. Patient went to urgent care and was told to come in for a CAT scan. Patient denies any neurological deficits or weakness. No nausea vomiting diarrhea or fevers or cough. No hematochezia or hematemesis. Does endorse some hemorrhoid bleeding but minor. Heart rate is 48 however patient states he normally does run in the 50s. Blood pressure 176/76 patient is afebrile with oxygen saturation of 98%. Patient has history of hypertension, atrial fibrillation, surgical history of appendectomy, heart catheterization, and spinal fusion. -: days(s) (2) Location: head (Frontal headache) Radiation: non-radiation Severity scale (1-10): 6 Quality: aching Consistency: constant Improves with: medication (Tylenol) Worsens with: none Associated Symptoms: other (Dizziness) Treatments Prior to Arrival: other (Tylenol) - Related Data Home Medications Medication Instructions Recorded Confirmed Lisinopril-Hctz 20-12.5 mg 1 tab PO DAILY 09/13/14 12/04/20 [Zestoretic 20-12.5] Simvastatin [Zocor] 40 mg PO HS 09/13/14 12/04/20 Ascorbic Acid [Vitamin C] 500 mg PO DAILY 06/06/15 12/04/20 Cholecalciferol (Vitamin D3) 2,000 unit PO DAILY 02/15/17 12/04/20 [Vitamin D3] Rivaroxaban [Xarelto] 20 mg PO W/SUPPER 06/22/19 12/04/20 amLODIPine [Norvasc] 5 mg PO HS 06/29/19 12/04/20 Allergies Allergy/AdvReac Type Severity Reaction Status Date / Time morphine AdvReac Severe Nausea & Verified 12/04/20 12:50 Vomiting Review of Systems ROS Statement: Those systems with pertinent positive or pertinent negative responses have been documented in the HPI. ROS Other: All systems not noted in ROS Statement are negative. Past Medical History Past Medical History: Atrial Fibrillation, Cancer, Eye Disorder, GERD/Reflux, Hyperlipidemia, Hypertension Additional Past Medical History / Comment(s): SOB and fatigue, received both covid vaccines,prostate CA-no chemo or radiation,bsal cell SKIN CANCER, heart murmur History of Any Multi-Drug Resistant Organisms: None Reported Past Surgical History: Appendectomy, Back Surgery, Heart Catheterization, Orthopedic Surgery, Prostate Surgery Additional Past Surgical History / Comment(s): prostatectomy, BILATERAL rotator cuff, CYSTS REMOVED FROM NECK AND TAIL BONE, CIRCUMCISION AT AGE 40. ,COLONOSCOPY benign poly removed; [place] CATARACT,cardioversion, melanoma removed Past Anesthesia/Blood Transfusion Reactions: No Reported Reaction Past Psychological History: No Psychological Hx Reported Smoking Status: Former smoker - Past Family History Father Family Medical History: Cancer Additional Family Medical History / Comment(s): COLON CA Mother Family Medical History: Cancer, Dementia, Diabetes Mellitus, Hypertension General Exam Limitations: no limitations General appearance: alert, in no apparent distress Head exam: Present: atraumatic, normocephalic, normal inspection Eye exam: Present: normal appearance, PERRL, EOMI. Absent: scleral icterus, conjunctival injection, nystagmus, periorbital swelling Pupils: Present: normal accommodation ENT exam: Present: normal exam, normal oropharynx, mucous membranes moist, TM's normal bilaterally, normal external ear exam Neck exam: Present: normal inspection. Absent: tenderness, meningismus, lymphadenopathy Respiratory exam: Present: normal lung sounds bilaterally. Absent: respiratory distress, wheezes, rales, rhonchi, stridor, chest wall tenderness, accessory muscle use, decreased breath sounds, prolonged expiratory Cardiovascular Exam: Present: normal rhythm, bradycardia, normal heart sounds. Absent: systolic murmur, diastolic murmur, rubs, gallop, clicks, JVD GI/Abdominal exam: Present: soft, normal bowel sounds. Absent: distended, te nderness, guarding, rebound, rigid Extremities exam: Present: normal inspection, full ROM, normal capillary refill. Absent: tenderness, pedal edema, joint swelling, calf tenderness Back exam: Present: normal inspection, full ROM. Absent: tenderness, CVA tenderness (R), CVA tenderness (L), muscle spasm, paraspinal tenderness, vertebral tenderness Neurological exam: Present: alert, oriented X3, CN II-XII intact. Absent: motor sensory deficit Psychiatric exam: Present: normal affect, normal mood Skin exam: Present: warm, dry, intact, normal color. Absent: rash Course Vital Signs 12/04/20 12/04/20 10:56 16:00 Temperature 97.4 F L Pulse Rate 48 L 48 L Respiratory 18 18 Rate Blood Pressure 176/76 164/83 O2 Sat by Pulse 98 100 Oximetry EKG Findings - EKG Results: EKG: not changed from: (June 2019) EKG shows: bradycardia (Ventricular rate of 44, AL interval of 0.18, QRS of 0.86, QTC of 0.398) Medical Decision Making - Medical Decision Making There is tiny hyperdense area in the MCA which a CT was recommended of the [place] which shows normal filling of the MCA, congenital variation of the [place]. Chest x-ray is negative for acute process. Electrolytes are within normal limits, hemoglobin and hematocrit is stable. Patient remains symptomatic with dizziness, heart rate 44 normotensive. Patient did not get relief with Antivert or IV fluids. Will admit to Dr. Benjamin with cardiology consult. case Discussed with Dr. Marx - Lab Data Result diagrams: 12/04/20 12:37 12/04/20 12:37 Lab Results 12/04/20 12/04/20 12/04/20 Range/Units 12:37 12:37 12:37 WBC 4.3 (3.8-10.6) k/uL RBC 4.96 (4.30-5.90) m/uL Hgb 15.2 (13.0-17.5) gm/dL Hct 45.6 (39.0-53.0) % MCV 91.8 (80.0-100.0) fL MCH 30.5 (25.0-35.0) pg MCHC 33.2 (31.0-37.0) g/dL RDW 12.5 (11.5-15.5) % Plt Count 163 (150-450) k/uL MPV 8.4 Neutrophils % 52 % Lymphocytes % 36 % Monocytes % 6 % Eosinophils % 3 % Basophils % 1 % Neutrophils # 2.2 (1.3-7.7) k/uL Lymphocytes # 1.5 (1.0-4.8) k/uL Monocytes # 0.3 (0-1.0) k/uL Eosinophils # 0.1 (0-0.7) k/uL Basophils # 0.1 (0-0.2) k/uL PT 12.1 H (9.0-12.0) sec INR 1.2 H (<1.2) Sodium 138 (137-145) mmol/L Potassium 4.4 (3.5-5.1) mmol/L Chloride 101 (98-107) mmol/L Carbon Dioxide 30 (22-30) mmol/L Anion Gap 7 mmol/L BUN 14 (9-20) mg/dL Creatinine 0.81 (0.66-1.25) mg/dL Est GFR (CKD-EPI)AfAm >90 (>60 ml/min/1.73 sqM) Est GFR (CKD-EPI)NonAf >90 (>60 ml/min/1.73 sqM) Glucose 85 (74-99) mg/dL Calcium 9.5 (8.4-10.2) mg/dL Total Bilirubin 0.9 (0.2-1.3) mg/dL AST 32 (17-59) U/L ALT 17 (4-49) U/L Alkaline Phosphatase 57 (38-126) U/L Total Protein 7.4 (6.3-8.2) g/dL Albumin 4.5 (3.5-5.0) g/dL Disposition Clinical Impression: Symptomatic bradycardia Disposition: ADMITTED IP TO THIS [facility] Condition: Good Instructions (If sedation given, give patient instructions): Bradycardia (ED) Referrals: Raffaele Lemos MD [Primary Care Provider] - 1-2 days Decision Date: 12/04/20 Decision Time: 16:19
[2020-12-04 13:23] LABS: Basophils # (A) 0.1 k/uL (0-0.2); Basophils % (A) 1 %; Eosinophils # (A) 0.1 k/uL (0-0.7); Eosinophils % (A) 3 %; HCT 45.6 % (39.0-53.0); HGB 15.2 gm/dL (13.0-17.5); Lymphocytes # (A) 1.5 k/uL (1.0-4.8); Lymphocytes % (A) 36 %; MCH 30.5 pg (25.0-35.0); MCHC 33.2 g/dL (31.0-37.0); MCV 91.8 fL (80.0-100.0); Mean Platelet Volume 8.4; Monocytes # (A) 0.3 k/uL (0-1.0); Monocytes % (A) 6 %; Neutrophils # (A) 2.2 k/uL (1.3-7.7); Neutrophils % (A) 52 %; Platelet Count 163 k/uL (150-450); RBC 4.96 m/uL (4.30-5.90); RDW 12.5 % (11.5-15.5); WBC 4.3 k/uL (3.8-10.6)
[2020-12-04 13:34] LABS: INR 1.2 (<1.2); Prothrombin Time 12.1 sec (9.0-12.0)
[2020-12-04 13:44] LABS: ALT 17 U/L (4-49); AST 32 U/L (17-59); African American GFR (CKD) >90 (>60 ml/min/1.73 sqM); Albumin 4.5 g/dL (3.5-5.0); Alkaline Phosphatase 57 U/L (38-126); Anion Gap 7 mmol/L; Blood Urea Nitrogen 14 mg/dL (9-20); Calcium 9.5 mg/dL (8.4-10.2); Carbon Dioxide 30 mmol/L (22-30); Chloride 101 mmol/L (98-107); Glucose 85 mg/dL (74-99); Non-African American GFR(CKD) >90 (>60 ml/min/1.73 sqM); Potassium 4.4 mmol/L (3.5-5.1); Sodium 138 mmol/L (137-145); Total Bilirubin 0.9 mg/dL (0.2-1.3); Total Protein 7.4 g/dL (6.3-8.2)
--- NOTE | 2020-12-04 14:05 | CT ---
EXAMINATION TYPE: CT brain wo con DATE OF EXAM: 12/04/2020 COMPARISON: 07/04/2018 HISTORY: Headaches CT DLP: 1111.4 mGycm Automated exposure control for dose reduction was used. FINDINGS: Orbits are symmetric. Cranial cervical junction maintained cerebellar tonsils extending to the level of foramen magnum. Intracranial atherosclerotic changes are noted. No midline shift or mass effect. Mild generalized degenerative change with faint periventricular low attenuation stable prior exam. No acute hemorrhage or mass effect. Could not exclude a hyperdense right MCA trifurcation sign. Best no savage axial image 23. IMPRESSION: 1. Question a tiny hyperdense right MCA sign axial image 23 axial recommend CTA [place]. 2. Nonspecific white matter changes most typical remote ischemia.
--- NOTE | 2020-12-04 14:23 | XR ---
EXAMINATION TYPE: XR chest 2V DATE OF EXAM: 12/04/2020 COMPARISON: 07/02/2018 TECHNIQUE: PA and lateral views submitted. HISTORY: Dizziness FINDINGS: The lungs are clear and there is no pneumothorax, pleural effusion, or focal pneumonia. Atheroscler otic change aorta. Arthropathy of the shoulders. Hyperinflation. Degenerative change of the spine. IMPRESSION: 1. No acute process. Correlate for COPD.
--- NOTE | 2020-12-04 15:43 | CT ---
EXAMINATION TYPE: CT angio COW [place] DATE OF EXAM: 12/04/2020 HISTORY: Dizziness, headache. Hyperdensity MCA. COMPARISON: CT brain 12/04/2020 CT DLP: 732.2 mGycm. Automated Exposure Control for Dose Reduction was Utilized. TECHNIQUE: CTA scan of the neck is performed with IV Contrast, patient injected with 100 mL of Isovu e 370, axial images are obtained, coronal and sagittal reformatted images are reviewed. Three-D recon structed images are created on an independent workstation and reviewed. Source images are reviewed. FINDINGS: Cervical of [place]: Vertebral basilar system appears normal. Posterior cerebral vasculature is unrema rkable. Left internal carotid artery bifurcates into A1 and M1 segments. The anterior communicating a rtery is patent. The A2 segments are patent. The right A1 segment is not identified. The right sales and marketing intern al carotid artery may terminate in the right middle cerebral artery. Left Posterior communicating art gabe is patent. Right posterior communicating artery is patent. The area of interest in the right distal middle cerebral artery branches within the sylvian fissure a ppears to have normal contrast filling. No filling defect is evident. No abrupt cut off is identified . IMPRESSION: 1. 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
[2020-12-04] MEDS ORDERED: NALOXONE 0.4 MG/ML 1 ML VIAL IV PRN (16:12)
[2020-12-04] MEDS: RIVAROXABAN 20 MG TAB PO SCH (18:46)
[2020-12-04] MEDS: SODIUM CHLORIDE 0.9% 1,000 ML IV SCH (18:48)
[2020-12-04] MEDS: amLODIPine 5 MG TAB PO SCH (20:41)
[2020-12-04] MEDS: ATORVASTATIN 20 MG TAB PO SCH (20:41)
--- NOTE | 2020-12-04 23:13 | P.HPIM ---
History of Present Illness H&P Date: 12/04/20 Chief Complaint: Headache, dizziness History of presenting complaint: This is a very pleasant 70 year old patient of Dr. Lemos. Chronic stable medical conditions include atrial fibrillation, GERD, hypertension, hyperlipidemia, prostate cancer that is being followed. Patient about 4 weeks ago had a DC cardioversion by Dr. Reed. About 4 days ago patient bumped the top of present to the garage door and was feeling will for a few seconds. Since then he has noticed to have a slight headache and dizziness at all times. He gets very dizzy on moving his head. No change in vision. No focal weakness. Feels tired. No fever no chills. Symptoms are rather positional. Review of systems: GEN.: Tired EYES: None HEENT: As above] NECK: None RESPIRATORY: None CARDIOVASCULAR: No chest pain GASTROINTESTINAL: None GENITOURINARY: None MUSCULOSKELETAL: None LYMPHATICS: None HEMATOLOGICAL: None PSYCHIATRY: None NEUROLOGICAL: As above Past medical history to include: Atrial fibrillation, GERD, hypertension, hyperlipidemia, prostate cancer, basal cell skin cancer, prostatectomy Social history: . Retired. 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 Started smoking age of 14 and stopped in 1988. Smoked half a pack a day. Alcohol occasionally. Physical examination: VITAL SIGNS: 98.1, 49, 17, 1 46 x 70, 96% on room air GENERAL: BMI 31.7, laying in bed, but tired. EYES: Pupils equal. Conjunctiva normal. HEENT: External appearance of nose and ears normal, oral cavity grossly normal. NECK: JVD not raised; masses not palpable. HEART: First and second heart sounds are normal; no edema. LUNGS: Respiratory rate normal; clear to auscultation. ABDOMEN: Soft, nontender, liver spleen not palpable, no masses palpable. PSYCH: Alert and oriented x3; mood and affect normal. NEUROLOGICAL: Cranial nerves grossly intact; no facial asymmetry, power and sensation grossly intact. LYMPHATICS: No lymph nodes palpable in the axilla and neck INVESTIGATIONS, reviewed in the clinical context: WBC 4.3 hemoglobin 15.2 platelets 163 potassium 4.4 creatinine 0.81 AST, ALT: Normal Coronavirus [PCR]: Not detected EKG tracing personally reviewed by me-sinus rhythm with a heart rate of 44 CT brain without contrast: Question tiny hyperdense right MCA area. 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 This will could've precipitated the benign paroxysmal positional vertigo. We'll carry out the Hallpike maneuver to see if this helps symptoms. Other neurological causes to be ruled out. Sinus bradycardia could be contributing -Sinus bradycardia with heart rate dipping to 40s. Telemetry -Hyperlipidemia Continue Pravachol -Essential hypertension Continue with Norvasc -Paroxysmal atrial fibrillation, currently sinus rhythm, with recent cardioversion Continue with xarelto Cardiology being consulted. We will do the bedside Sravanthi maneuver. Care was discussed with the patient. Questions answered. Past Medical History Past Medical History: Atrial Fibrillation, Cancer, Eye Disorder, GERD/Reflux, Hyperlipidemia, Hypertension Additional Past Medical History / Comment(s): SOB and fatigue, received both covid vaccines,prostate CA-no chemo or radiation,bsal cell SKIN CANCER, heart murmur History of Any Multi-Drug Resistant Organisms: None Reported Past Surgical History: Appendectomy, Back Surgery, Heart Catheterization, Orthopedic Surgery, Prostate Surgery Additional Past Surgical History / Comment(s): prostatectomy, BILATERAL rotator cuff, CYSTS REMOVED FROM NECK AND TAIL BONE, CIRCUMCISION AT AGE 40. ,COLONOSCOPY benign poly removed; [facility] CATARACT,cardioversion, melanoma removed Past Anesthesia/Blood Transfusion Reactions: No Reported Reaction Past Psychological History: No Psychological Hx Reported Additional Psychological History / Comment(s): pt is independant. lives with sherice. drives,walks 2.5 miles per day. 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 Smoking Status: Former smoker Past Alcohol Use History: Occasional Additional Past Alcohol Use History / Comment(s): started smoking age 14 and quit 1988. smoked 1/2 ppd Past Drug Use History: None Reported - Past Family History Father Family Medical History: Cancer Additional Family Medical History / Comment(s): COLON CA Mother Family Medical History: Cancer, Dementia, Diabetes Mellitus, Hypertension Medications and Allergies Home Medications Medication Instructions Recorded Confirmed Type Lisinopril-Hctz 20-12.5 mg 1 tab PO DAILY 09/13/14 12/04/20 History [Zestoretic 20-12.5] Simvastatin [Zocor] 40 mg PO HS 09/13/14 12/04/20 History Ascorbic Acid [Vitamin C] 500 mg PO DAILY 06/06/15 12/04/20 History Cholecalciferol (Vitamin D3) 2,000 unit PO DAILY 02/15/17 12/04/20 History [Vitamin D3] Rivaroxaban [Xarelto] 20 mg PO W/SUPPER 06/22/19 12/04/20 History amLODIPine [Norvasc] 5 mg PO HS 06/29/19 12/04/20 History Allergies Allergy/AdvReac Type Severity Reaction Status Date / Time morphine AdvReac Severe Nausea & Verified 12/04/20 12:50 Vomiting Physical Exam Vitals: Vital Signs Temp Pulse Pulse Resp BP BP Pulse Ox 12/04/20 21:30 98.1 F 49 L 17 146/70 96 12/04/20 20:06 97.6 F 54 L 18 128/72 96 12/04/20 16:00 48 L 18 164/83 100 12/04/20 10:56 97.4 F L 48 L 18 176/76 98 Intake and Output 12/04/20 12/04/20 12/04/20 06:59 14:59 22:59 Other: Weight 97.522 kg 97.522 kg Results CBC & Chem 7: 12/04/20 12:37 12/04/20 12:37 Labs: Abnormal Lab Results - Last 24 Hours (Table) 12/04/20 Range/Units 12:37 PT 12.1 H (9.0-12.0) sec INR 1.2 H (<1.2) Thrombosis Risk Factor Assmnt - Choose All That Apply Any of the Below Risk Factors Present?: Yes Each Factor Represents 1 point: Obesity (BMI >25), Varicose veins Each Risk Factor Represents 2 Points: Age 61-74 years Other congenital or acquired thrombophilia - If yes, enter type in comment: No Thrombosis Risk Factor Assessment Total Risk Factor Score: 4 Thrombosis Risk Factor Assessment Level: Moderate Risk
[2020-12-05] MEDS: SODIUM CHLORIDE 0.9% 1,000 ML IV SCH ×2 (06:03→19:12)
[2020-12-05] MEDS: ASCORBIC ACID 500 MG TAB PO SCH (07:35)
[2020-12-05] MEDS: RIVAROXABAN 20 MG TAB PO SCH (07:35)
[2020-12-05] MEDS: CHOLECALCIFEROL 25 MCG (1000 IU) TABLET PO SCH (07:35)
[2020-12-05] MEDS ORDERED: LISINOPRIL-HCTZ 20-12.5 MG 1 EACH TAB PO SCH (09:00)
--- NOTE | 2020-12-05 12:45 | P.CRDCN ---
History of Present Illness History of present illness: HISTORY OF PRESENTING ILLNESS This is a pleasant 70-year-old male past medical history significant for paroxysmal atrial fibrillation status post cardioversion, hypertension, chronotropic incompetence and dyslipidemia. He follows in the office with Dr. Reed. We have been asked to see in consultation for bradycardia. He underwent successful cardioversion 11/10/2020. He states since that time he has been feeling for the most part normal. Over the last one to 2 weeks he has noticed dizziness that he describes as room spinning. He states when he gets up and tries to do any activity at times he is leaving and bobbing off the souza and unable to walk a straight line. He states last week he noticed a full sensation in his right ear and did perform an ear flush. He still can hear what he describes as something bouncing off of his eardrum. He states he always has a l ow heart rate typically running in the 50s. Since admission documentation indicates his heart rate fluctuates between 46-55. Telemetry tracings reviewed, no significant pauses noted. Orthostatic vital signs were requested and unremarkable. He has undergone stress testing in the past that were negative for symptoms of angina however nondiagnostic secondary to an adequate chronotropic response. He walked on the treadmill for 9 minutes and 22 seconds achieving a maximum heart rate of 105. Resting heart rate was 53. DIAGNOSTICS EKG reveals sinus bradycardia with T-wave inversion suggestive of atrial ectopic rhythm. CT of the brain reveals a hyperdense right MCA with nonspecific white matter changes. CT [place] of the [place] reveals congenital variation of the [place]. Chest xray negative for an acute cardiopulmonary process with underlying hyperinflation suggestive of COPD. Laboratory reviewed, CBC unremarkable, sodium 138, potassium 4.4, creatinine 0.81. Current cardiac medications include lisinopril/hydrochlorothiazide 20/12.5 mg daily, amlodipine 5 mg at bedtime, simvastatin 40 mg at bedtime and Xarelto 20 mg daily. REVIEW OF SYSTEMS At the time of my exam: CONSTITUTIONAL: Denies fever or chills. CARDIOVASCULAR: Denies chest pain, shortness of breath, orthopnea, PND or palpitations. RESPIRATORY: Denies cough. GASTROINTESTINAL: Denies abdominal pain, diarrhea, constipation, nausea or vomiting. MUSCULOSKELETAL: Denies myalgias. NEUROLOGIC: Denies numbness, tingling, headacbe or weakness. ENDOCRINE: Denies fatigue, weight change, polydipsia or polyurina. GENITOURINARY: Denies burning, hematuria or urgency with micturation. HEMATOLOGIC: Denies history of anemia or bleeding. PHYSICAL EXAMINATION Blood pressure 135/72 heart rate 60 afebrile and maintaining oxygen saturation on room air. CONSTITUTIONAL: No apparent distress. HEENT: Head is normocephalic. Pupils are equal, round. Sclerae anicteric. Mucous membranes of the mouth are moist. No JVD. No carotid bruit. CHEST EXAMINATION: Lungs are clear to auscultation. No chest wall tenderness is noted on palpation or with deep breathing. HEART EXAMINATION: Regular rate and rhythm. S1, S2 heard. Systolic ejection murmur at the base, no gallops or rub. ABDOMEN: Soft, nontender. Positive bowel sounds. EXTREMITIES: 2+ peripheral pulses, no lower extremity edema and no calf tenderness. NEUROLOGIC EXAMINATION: Patient is awake, alert and oriented x3. ASSESSMENT Sinus bradycardia Dizziness suggestive of vertigo or inner ear condition Paroxysmal atrial fibrillation s/p cardioversion maintaining sinus mechanism on xarelto for thromboembolic protection Hypertension Dyslipidemia Incompetent chronotropic response PLAN Orthostatic vital signs unremarkable. Check TSH. Increase activity and ambulation. Pt has known bradycardia with poor chronotropic response. His symptoms do not seem to be related to bradycardia. Likely related to in her ear or recent head injury. Follow-up in the office with Dr. Reed upon discharge. Nurse Practitioner note has been reviewed, I agree with a documented findings and plan of care. Patient was seen and examined. Past Medical History Past Medical History: Atrial Fibrillation, Cancer, Eye Disorder, GERD/Reflux, Hyperlipidemia, Hypertension Additional Past Medical History / Comment(s): SOB and fatigue, received both covid vaccines,prostate CA-no chemo or radiation,bsal cell SKIN CANCER, heart murmur History of Any Multi-Drug Resistant Organisms: None Reported Past Surgical History: Appendectomy, Back Surgery, Heart Catheterization, Orthopedic Surgery, Prostate Surgery Additional Past Surgical History / Comment(s): prostatectomy, BILATERAL rotator cuff, CYSTS REMOVED FROM NECK AND TAIL BONE, CIRCUMCISION AT AGE 40. ,COLONOSCOPY benign poly removed; [facility] CATARACT,cardioversion, melanoma removed Past Anesthesia/Blood Transfusion Reactions: No Reported Reaction Past Psychological History: No Psychological Hx Reported Additional Psychological History / Comment(s): pt is independant. lives with sherice. drives,walks 2.5 miles per day. 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 Smoking Status: Former smoker Past Alcohol Use History: Occasional Additional Past Alcohol Use History / Comment(s): started smoking age 14 and quit 1988. smoked 1/2 ppd Past Drug Use History: None Reported - Past Family History Father Family Medical History: Cancer Additional Family Medical History / Comment(s): COLON CA Mother Family Medical History: Cancer, Dementia, Diabetes Mellitus, Hypertension Medications and Allergies Home Medications Medication Instructions Recorded Confirmed Type Lisinopril-Hctz 20-12.5 mg 1 tab PO DAILY 09/13/14 12/04/20 History [Zestoretic 20-12.5] Simvastatin [Zocor] 40 mg PO HS 09/13/14 12/04/20 History Ascorbic Acid [Vitamin C] 500 mg PO DAILY 06/06/15 12/04/20 History Cholecalciferol (Vitamin D3) 2,000 unit PO DAILY 02/15/17 12/04/20 History [Vitamin D3] Rivaroxaban [Xarelto] 20 mg PO W/SUPPER 06/22/19 12/04/20 History amLODIPine [Norvasc] 5 mg PO HS 06/29/19 12/04/20 History Allergies Allergy/AdvReac Type Severity Reaction Status Date / Time morphine AdvReac Severe Nausea & Verified 12/04/20 12:50 Vomiting Physical Exam Vitals: Vital Signs Temp Pulse Pulse Resp BP BP Pulse Ox 12/05/20 07:46 46 L 19 12/05/20 07:00 97.7 F 47 L 16 135/71 97 12/05/20 01:39 16 12/05/20 01:37 97.7 F 46 L 16 131/69 99 12/04/20 21:40 49 L 17 12/04/20 21:30 98.1 F 49 L 17 146/70 96 12/04/20 20:06 97.6 F 54 L 18 128/72 96 12/04/20 16:00 48 L 18 164/83 100 12/04/20 10:56 97.4 F L 48 L 18 176/76 98 Intake and Output 12/04/20 12/05/20 12/05/20 22:59 06:59 14:59 Intake Total 240 Output Total 300 Balance 240 -300 Intake: Oral 240 Output: Urine 300 Other: Voiding Method Urinal Urinal # Voids 1 1 Weight 97.522 kg Results 12/04/20 12:37 12/04/20 12:37 Cardiac Enzymes 12/04/20 Range/Units 12:37 AST 32 (17-59) U/L Coagulation 12/04/20 Range/Units 12:37 PT 12.1 H (9.0-12.0) sec CBC 12/04/20 Range/Units 12:37 WBC 4.3 (3.8-10.6) k/uL RBC 4.96 (4.30-5.90) m/uL Hgb 15.2 (13.0-17.5) gm/dL Hct 45.6 (39.0-53.0) % Plt Count 163 (150-450) k/uL Comprehensive Metabolic Panel 12/04/20 Range/Units 12:37 Sodium 138 (137-145) mmol/L Potassium 4.4 (3.5-5.1) mmol/L Chloride 101 (98-107) mmol/L Carbon Dioxide 30 (22-30) mmol/L BUN 14 (9-20) mg/dL Creatinine 0.81 (0.66-1.25) mg/dL Glucose 85 (74-99) mg/dL Calcium 9.5 (8.4-10.2) mg/dL AST 32 (17-59) U/L ALT 17 (4-49) U/L Alkaline Phosphatase 57 (38-126) U/L Total Protein 7.4 (6.3-8.2) g/dL Albumin 4.5 (3.5-5.0) g/dL Current Medications Generic Name Dose Route Start Last Admin Trade Name Freq PRN Reason Stop Dose Admin Amlodipine Besylate 5 mg 12/04/20 21:00 12/04/20 20:41 Amlodipine 5 Mg Tab PO 5 mg HS RIAZ Administration Ascorbic Acid 500 mg 12/05/20 09:00 12/05/20 07:35 Ascorbic Acid 500 Mg Tab PO 500 mg DAILY RIAZ Administration Atorvastatin Calcium 20 mg 12/04/20 21:00 12/04/20 20:41 Atorvastatin 20 Mg Tab PO 20 mg HS RIAZ Administration Cholecalciferol 50 mcg 12/05/20 09:00 12/05/20 07:35 Cholecalciferol 25 Mcg (1000 Iu) Tablet PO 50 mcg DAILY RIAZ Administration Lisinopril/HCTZ 1 each 12/05/20 09:00 12/05/20 07:35 Lisinopril-Hctz 20-12.5 Mg 1 Each Tab PO 1 each DAILY RIAZ Administration Sodium Chloride 1,000 mls @ 75 mls/hr 12/04/20 16:15 12/05/20 06:03 Saline 0.9% IV 75 mls/hr .[id number] RIAZ Administration Naloxone HCl 0.2 mg 12/04/20 16:12 Naloxone 0.4 Mg/Ml 1 Ml Vial IV Q2M PRN Opioid Reversal Rivaroxaban 20 mg 12/04/20 17:30 12/05/20 07:35 Rivaroxaban 20 Mg Tab PO 20 mg W/SUPPER RIAZ Administration Intake and Output 12/04/20 12/05/20 12/05/20 22:59 06:59 14:59 Intake Total 240 Output Total 300 Balance 240 -300 Intake: Oral 240 Output: Urine 300 Other: Voiding Method Urinal Urinal # Voids 1 1 Weight 97.522 kg 12/04/20 12:37 12/04/20 12:37
--- NOTE | 2020-12-05 14:47 | ECHOF ---
Referral Reason: MEASUREMENTS -------- HEIGHT: 175.3 cm WEIGHT: 97.5 kg BP: 135/71 RVIDd: 3.6 cm (< 3.3) IVSd: 1.2 cm (0.6 - 1.1) LVIDd: 5.1 cm (3.9 - 5.3) LVPWd: 1.1 cm (0.6 - 1.1) IVSs: 1.8 cm LVIDs: 3.1 cm LVPWs: 1.4 cm LAESV Index (A-L): 43.97 ml/m Ao Diam: 3.5 cm (2.0 - 3.7) AV Cusp: 2.3 cm (1.5 - 2.6) MV EXCURSION: 15.315 mm (> 18.000) MV EF SLOPE: 56 mm/s (70 - 150) EPSS: 0.3 cm MV E Alex: 0.74 m/s MV DecT: 173 ms MV A Alex: 0.47 m/s MV E/A Ratio: 1.59 RAP: 5.00 mmHg RVSP: 26.92 mmHg FINDINGS -------- Resting bradycardia (HR<60bpm). This was a technically adequate study. The left ventricular size is normal. There is moderate concentric left ventricular hypertrophy. O verall left ventricular systolic function is low-normal with, an EF between 50 - 55 %. The right ventricle is mildly enlarged. LA is moderately dilated 34-39 ml/m2 The right atrial size is normal. Interatrial and interventricular septum intact. The aortic valve is trileaflet and appears structurally normal. There is no evidence of aortic regu rgitation. There is no evidence of aortic stenosis. [id number] mitral regurgitation is present. Mild tricuspid regurgitation present. There is no evidence of pulmonary hypertension. The right v entricular systolic pressure, as measured by Doppler, is 26.92mmHg. There is no pulmonic regurgitation present. The aortic root size is normal. IVC Not well visulized. There is no pericardial effusion. CONCLUSIONS -------- 1. The left ventricular size is normal. 2. There is moderate concentric left ventricular hypertrophy. 3. Overall left ventricular systolic function is low-normal with, an EF between 50 - 55 %. 4. The right ventricle is mildly enlarged. 5. LA is moderately dilated 34-39 ml/m2 6. [id number] mitral regurgitation is present. 7. Mild tricuspid regurgitation present. BANKMAN: Cocnhis Weems RDCS
[2020-12-05] MEDS ORDERED: MECLIZINE 12.5 MG TAB PO PRN (17:25)
--- NOTE | 2020-12-05 17:27 | P.CNNES ---
History of Present Illness Consult date: 12/05/20 Requesting physician: Sabino Benjamin Reason for Consult: Headache, dizziness History of Present Illness: Patient is a 70-year-old male with history of hypertension, atrial fibrillation, came to the hospital yesterday at 10:52 AM for a new onset frontal headache and dizziness. 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 He may related to the bathroom and went back to bed. He woke up 2 more times in the dizziness seems to be getting worse. When he woke up at 6:30, the dizziness was very worse. He just stayed in the recliner still dizzy. He saw Dr. Reed his flatwork catcher at 3 PM, who ran a EKG and everything was fine. Holer monitor was placed and he was sent home. Patient states that the rest of the day and the following day he was feeling better although he was cautious. He dropped off the Holter monitor on Tuesday. The next day, which is yesterday, when he woke up, he was very dizzy. He went to urgent care, where he was recommended to go to the ER. Patient states that lately his blood pressure has been running high, around 160/78, which usually runs around 120/80 range. Patient states since he became dizzy, he also has been having bifrontal headache, which he never gets. The only time he got similar headache was 2 years ago when he was diagnosed with atrial fibrillation and his blood pressure was running high. He gets pressure sensation behind his eyes. He gets slightly nauseous but no vomiting. Patient also mentions that on 12/01/2020, 1 day before the onset of dizziness, he was going to the barn when he bumped his head on the barn door fairly hard. He did not pass out, did not see stars, but had a small scratch on the forehead. He was fine until the next morning as mentioned. Patient also mentions that he sometimes gets wax buildup in his ea rs. He notices the wax buildup when he hears a "noise" in his ear, and he feels as if he could get dizzy. He usually flushes out the wax by using warm water in the ear. He states that he did the same about a week ago when he felt "noise" and some pressure in the ear. Vital signs on arrival blood pressure 176/76, pulse rate 48, temperature 97.4. Patient had orthostatics twice, which was just borderline positive. Supine blood pressure 156/73, pulse rate 51, sitting was 147/83, pulse rate 60 and standing 135/72 with pulse rate of 55. Repeat orthostatics supine 156/73, pulse 55, sating 147/83 and pulse of 51 and standing was 135/72 with pulse of 60. CT head showed questionable tiny hyperdense right MCA sign. On my review, the paranasal sinuses and external auditory canals are clear. CTA of [place] of [place] recommended. Nonspecific white matter changes, most typical of remote ischemia. 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 No evidence of thrombus in the MCA. EKG shows unusual P axis, possible ectopic atrial bradycardia. 2-D echo showed normal left-ventricular size. Moderate concentric LVH. EF is 50-55%. Left atrium is moderately dilated. Mild to moderate MR. Mild TR. CBC, PTT PTT, CMP are normal. Mejia virus PCR negative. Patient has history of atrial fibrillation, currently on Xarelto 20 mg daily, amlodipine 5 mg, vitamin D, Zestoretic 20/12.5 and simvastatin 40 mg. Patient also has hypertension. Denies diabetes. He smoked 1 pack per day for 15 years, quit 35 years ago. Review of Systems As mentioned above in detail. All other review of systems unremarkable. Denies any chest pain shortness of breath wheezing or cough. Denies any focal numbness tingling weakness. Denies abdominal pain and he did have some nausea but no vomiting. Denies any fever or chills. Past Medical History Past Medical History: Atrial Fibrillation, Cancer, Eye Disorder, GERD/Reflux, Hyperlipidemia, Hypertension Additional Past Medical History / Comment(s): SOB and fatigue, received both covid vaccines,prostate CA-no chemo or radiation,bsal cell SKIN CANCER, heart murmur History of Any Multi-Drug Resistant Organisms: None Reported Past Surgical History: Appendectomy, Back Surgery, Heart Catheterization, Orthopedic Surgery, Prostate Surgery Additional Past Surgical History / Comment(s): prostatectomy, BILATERAL rotator cuff, CYSTS REMOVED FROM NECK AND TAIL BONE, CIRCUMCISION AT AGE 40. ,COLONOSCOPY benign poly removed; [facility] CATARACT,cardioversion, melanoma removed Past Anesthesia/Blood Transfusion Reactions: No Reported Reaction Past Psychological History: No Psychological Hx Reported Additional Psychological History / Comment(s): pt is independant. lives with sherice. drives,walks 2.5 miles per day. 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 Smoking Status: Former smoker Past Alcohol Use History: Occasional Additional Past Alcohol Use History / Comment(s): started smoking age 14 and quit 1988. smoked 1/2 ppd Past Drug Use History: None Reported - Past Family History Father Family Medical History: Cancer Additional Family Medical History / Comment(s): COLON CA Mother Family Medical History: Cancer, Dementia, Diabetes Mellitus, Hypertension Medications and Allergies Home Medications Medication Instructions Recorded Confirmed Type Lisinopril-Hctz 20-12.5 mg 1 tab PO DAILY 09/13/14 12/04/20 History [Zestoretic 20-12.5] Simvastatin [Zocor] 40 mg PO HS 09/13/14 12/04/20 History Ascorbic Acid [Vitamin C] 500 mg PO DAILY 06/06/15 12/04/20 History Cholecalciferol (Vitamin D3) 2,000 unit PO DAILY 02/15/17 12/04/20 History [Vitamin D3] Rivaroxaban [Xarelto] 20 mg PO W/SUPPER 06/22/19 12/04/20 History amLODIPine [Norvasc] 5 mg PO HS 06/29/19 12/04/20 History Allergies Allergy/AdvReac Type Severity Reaction Status Date / Time morphine AdvReac Severe Nausea & Verified 12/04/20 12:50 Vomiting Physical Examination - Vital Signs Vital Signs: Vital Signs Temp Pulse Pulse Pulse Pulse Pulse Resp 12/05/20 15:00 97.5 F L 50 L 16 L 12/05/20 08:46 51 L 60 55 L 12/05/20 08:33 51 L 60 55 L 12/05/20 07:46 46 L 19 12/05/20 07:00 97.7 F 47 L 16 12/05/20 01:39 16 12/05/20 01:37 97.7 F 46 L 16 12/04/20 21:40 49 L 17 12/04/20 21:30 98.1 F 49 L 17 12/04/20 20:06 97.6 F 54 L 18 12/04/20 16:00 48 L 18 BP BP BP BP BP Pulse Ox 12/05/20 15:00 129/66 98 12/05/20 08:46 147/83 135/72 156/73 12/05/20 08:33 156/73 147/83 135/72 12/05/20 07:46 12/05/20 07:00 135/71 97 12/05/20 01:39 12/05/20 01:37 131/69 99 12/04/20 21:40 12/04/20 21:30 146/70 96 12/04/20 20:06 128/72 96 12/04/20 16:00 164/83 100 Intake and Output 12/05/20 12/05/20 12/05/20 06:59 14:59 22:59 Output Total 300 Balance -300 Output: Urine 300 Other: Voiding Method Urinal # Voids 1 Patient is an elderly male, very pleasant in no acute distress. Patient is alert awake oriented to time place and person. Speech and language functions are normal. Attention, concentration and fund of knowledge is adequate. On cranial examination, pupils are equal, round and reacting to light, visual leblanc are full on confrontation with no neglect on double simultaneous stimulation, extraocular muscles are intact with no nystagmus. Face is symmetric, tongue protrudes to the midline. Palatal elevation and sensation normal, hearing and shoulder shrug normal, facial sensation normal. Shoulder shrug normal. On muscle strength testing, there is no pronator drift and the strength is normal in arms and legs distally and proximally. Deep tendon reflexes are 1+ in bilateral upper limbs. Knee is 1+ on the right, 1 left knee. Ankles 1 bilaterally and plantars downgoing. Sensory to touch is equal with no neglect on either side. Cerebellar function showed no ataxia for [id number] testing. No d ysdiadochokinesia. Tone and bulk of muscles normal. Gait deferred. On general examination, there is no carotid bruit or murmur, S1-S2 audible. Abdomen is soft nontender. Chest is clear. Peripheral pulses are present. No edema. Results - Laboratory Findings CBC and BMP: 12/04/20 12:37 12/04/20 12:37 Abnormal Lab Findings: Abnormal Labs 06/03/21 12:37 PT 12.1 H INR 1.2 H Assessment and Plan Assessment: * New onset bifrontal cephalalgia, with pressure in the eyes, possibly related to high blood pressure. Patient also had minor closed head injury one day prior to onset of this vertigo, when he hit his head on the barn door. Patient had experienced similar headache in the past when his blood pressure was running high at the time of diagnosis of atrial fibrillation 2 years ago. * Vertigo, probably due to peripheral vestibular dysfunction. His recent closed head injury may have triggered the vertigo. Likewise his personal attempt of trying to flush the wax out from the ears, (a week prior), may also have contributed. CT head showed clear paranasal sinuses and EAC. * Atrial fibrillation on Xarelto * Hypertension Plan: * Although headaches and vertigo are probably related to perhaps combination of high blood pressure and minor closed head injury, but because of atrial fibrillation, and being on Xarelto, we will check MRI of the brain to rule out secondary causes. * If the MRI is negative, then would aggressively control blood pressure to help with headaches and dizziness/vertigo. * Antivert as needed. * Carotid Doppler. * B12, folate, TSH. * Dr. Herb Álvarez Will resume neurology service in the morning.
--- NOTE | 2020-12-05 18:04 | P.PN ---
Progress Note - Text Progress Note Date: 12/05/20 Chief Complaint: Headache, dizziness History of presenting complaint: This is a very pleasant 70 year old patient of Dr. Lemos. Chronic stable medical conditions include atrial fibrillation, GERD, hypertension, hyperlipidemia, prostate cancer that is being followed. Patient about 4 weeks ago had a DC cardioversion by Dr. Reed. About 4 days ago patient bumped the top of present to the garage door and was feeling will for a few seconds. Since then he has noticed to have a slight headache and dizziness at all times. He gets very dizzy on moving his head. No change in vision. No focal weakness. Feels tired. No fever no chills. Symptoms are rather positional. Admitted with what is felt to be positional dizziness. Likely due to BPPV. This could have been precipitated by head injury and possible ear washing. Headache which is slight likely a manifestation from bumping his head against to get a store. Patient also bradycardia and beta chaz was discontinued. Today: Feels a bit better. Still positional dizziness. Sravanthi maneuver instructions have been given. Neurology is consulted for opinion. at the bedside. Review of systems: Was done for constitutional, cardiovascular, GI, pulmonary. relevant finding as above Active Medications Amlodipine Besylate (Amlodipine 5 Mg Tab) 5 mg PO HS [facility] Last Admin: 12/04/20 20:41 Dose: 5 mg Documented by: Ascorbic Acid (Ascorbic Acid 500 Mg Tab) 500 mg PO DAILY [facility] Last Admin: 12/05/20 07:35 Dose: 500 mg Documented by: Atorvastatin Calcium (Atorvastatin 20 Mg Tab) 20 mg PO [facility] Last Admin: 12/04/20 20:41 Dose: 20 mg Documented by: Cholecalciferol (Cholecalciferol 25 Mcg (1000 Iu) Tablet) 50 mcg PO DAILY [facility] Last Admin: 12/05/20 07:35 Dose: 50 mcg Documented by: Lisinopril/HCTZ (Lisinopril-Hctz 20-12.5 Mg 1 Each Tab) 1 each PO BID [facility] Sodium Chloride (Saline 0.9%) 1,000 mls @ 75 mls/hr IV .[id number] [facility] Last Admin: 12/05/20 06:03 Dose: 75 mls/hr Documented by: Meclizine HCl (Meclizine 12.5 Mg Tab) 12.5 mg PO TID PRN PRN Reason: Vertigo Naloxone HCl (Naloxone 0.4 Mg/Ml 1 Ml Vial) 0.2 mg IV Q2M PRN PRN Reason: Opioid Reversal Rivaroxaban (Rivaroxaban 20 Mg Tab) 20 mg PO W/SUPPER [facility] Last Admin: 12/05/20 07:35 Dose: 20 mg Documented by: Past medical history to include: Atrial fibrillation, GERD, hypertension, hyperlipidemia, prostate cancer, basal cell skin cancer, prostatectomy Social history: . Retired. 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 Started smoking age of 14 and stopped in 1988. Smoked half a pack a day. Alcohol occasionally. Physical examination: VITAL SIGNS: 97.5, 50, 16, 129/66, 98% room air GENERAL: Reclining in bed, awake. EYES: Pupils equal. Conjunctiva normal. NECK: JVD not raised; masses not palpable. HEART: First and second heart sounds are normal; no edema. LUNGS: Respiratory rate normal; clear to auscultation. ABDOMEN: Soft, nontender, liver spleen not palpable, no masses palpable. PSYCH: Alert and oriented x3; mood and affect normal. INVESTIGATIONS, reviewed in the clinical context: 2-D echocardiogram: Moderate concentric LVH WBC 4.3 hemoglobin 15.2 platelets 163 potassium 4.4 creatinine 0.81 AST, ALT: Normal Coronavirus [PCR]: Not detected EKG tracing personally reviewed by me-sinus rhythm with a heart rate of 44 CT brain without contrast: Question tiny hyperdense right MCA area. 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 Antivert when necessary. Sravanthi maneuvers at bedside being started -Sinus bradycardia secondary to beta chaz-discontinued Telemetry -Hyperlipidemia Continue Pravachol -Essential hypertension, uncontrolled Continue with Norvasc. Increase lisinopril hydrochlorothiazide to twice daily -Paroxysmal atrial fibrillation, currently sinus rhythm, with recent cardioversion Continue with xarelto -Cephalgia from mild head trauma Care was discussed with the patient and . Discussed with neurology. MRI is being ordered. Sravanthi maneuver. Beta blockers discontinued. Dose of lisinopril/HCTZ increased
--- NOTE | 2020-12-05 19:27 | US ---
EXAMINATION TYPE: US carotid duplex BILAT DATE OF EXAM: 12/05/2020 COMPARISON: NONE CLINICAL HISTORY: Headache, vertigo, head injury. Exam done portable. EXAM MEASUREMENTS: RIGHT: Peak Systolic Velocity (PSV) cm/sec ----- Right CCA: 95.5 ----- Right ICA: 97.0 ----- Right ECA: 104.0 ICA/CCA ratio: 1.0 RIGHT: End Diastole cm/sec ----- Right CCA: 16.2 ----- Right ICA: 20.2 ----- Right ECA: 4.0 LEFT: Peak Systolic Velocity (PSV) cm/sec ----- Left CCA: 95.5 ----- Left ICA: 80.3 ----- Left ECA: 104.0 ICA/CCA ratio: 0.8 LEFT: End Diastole cm/sec ----- Left CCA: 15.6 ----- Left ICA: 14.7 ----- Left ECA: 3.5 VERTEBRALS (direction of flow): Right Vertebral: Antegrade Left Vertebral: Antegrade Rhythm: Normal No significant stenosis. IMPRESSION: There is antegrade flow in the vertebral arteries. The images and measurements suggest less than 10% stenosis in both internal carotid arteries. Criteria for Assigning % of Stenosis / Diameter reduction (Estimation based on the indirect measurements of the internal carotid artery velocities (ICA PSV). 1. Normal (no stenosis)=ICA PSV < 125 cm/s: ratio < 2.0: ICA EDV<40 cm/s. 2. Less than 50% stenosis=ICA PSV < 125 cm/s: ratio < 2.0: ICA EDV<40 cm/s. 3. 50 to 69% stenosis=ICA PSV of 125 to 230 cm/s: ration 2.0 ? 4.0: ICA EDV 40-100 cm/s. 4. Greater than 70% stenosis to near occlusion= ICA PSV > 230 cm/s: ratio > 4.0: ICA EDV > 100 cm/s. 5. Near occlusion= ICA PSV velocities may be low or undetectable: variable ratio and ICA EDV. 6. Total occlusion=unable to detect flow.
[2020-12-05] MEDS: amLODIPine 5 MG TAB PO SCH (21:22)
[2020-12-05] MEDS: ATORVASTATIN 20 MG TAB PO SCH (21:22)
[2020-12-05] MEDS: LISINOPRIL-HCTZ 20-12.5 MG 1 EACH TAB PO SCH (21:22)
[2020-12-06 03:22] LABS: Magnesium 2.2 mg/dL (1.5-2.4)
[2020-12-06] MEDS: SODIUM CHLORIDE 0.9% 1,000 ML IV SCH (07:50)
[2020-12-06] MEDS: LISINOPRIL-HCTZ 20-12.5 MG 1 EACH TAB PO SCH (07:50)
[2020-12-06] MEDS: ASCORBIC ACID 500 MG TAB PO SCH (07:50)
[2020-12-06] MEDS: CHOLECALCIFEROL 25 MCG (1000 IU) TABLET PO SCH (07:50)
[2020-12-06 08:54] VITALS: RESP 18
--- NOTE | 2020-12-06 08:57 | MR ---
MRI brain. HISTORY: Vertigo and headache COMPARISON: None. TECHNIQUE: Multiecho multiplanar images the brain were obtained without contrast. FINDINGS: On the T1-weighted sagittal images, the midline structures including the craniovertebral junction rel ationships are normal. The ventricles, basal cisterns and sulci over the convexities are within normal limits and there is n o mass, mass effect or shift of the midline structures. There are small remote lacunar infarcts in the basal ganglia bilaterally. On diffusion-weighted imaging, there is no evidence of diffusion restriction or acute ischemic event. On the FLAIR images there are a few scattered small focal areas of abnormal increased signal intensit y in the white matter both cerebral hemispheres which are nonspecific findings and most likely reflec t chronic ischemic white matter change. The posterior fossa is grossly normal. Intraorbital contents are normal and symmetric. Visualized paranasal sinuses and mastoid air cells ar e well aerated. IMPRESSION: 1. Remote fluid collection or infarcts in the basal ganglia bilaterally. 2. No acute ischemic event. 3. Mild nonspecific multifocal white matter changes. 4 no mass, mass effect or shift of the midline structures. No hydrocephalus.
--- NOTE | 2020-12-06 13:25 | P.PN ---
Subjective Progress Note Date: 12/06/20 I'm seeing the patient for the first time. Please refer to Dr. Barrera's note for detailed neurological history and his assessment and plan Patient stated that he has some dizziness but his symptoms are improving since initial presentation. He stated that the he only had one dose of meclizine so far. And that is willing to continue taking meclizine to see if any benefit. Patient denies of any focal weakness, numbness, visual disturbance, difficulty getting his words out. MRI the brain is reported as remote fluid collection or old infarct in the basal ganglia bilaterally. No acute ischemic event at. Mild nonspecific multi focal white matter changes at. No mass, mass effect or shift of the midline structure. No hydrocephalus at. I personally reviewed the MRI and I do not see any acute subacute ischemia. At that the patient has some white matter changes in this is possibly due to chronic small vessel disease. Carotid duplex is reported as there is antegrade flow in the vertebral arteries. The images and measurements suggest less than 10% stenosis of both internal carotid artery. Objective - Vital Signs Vital signs: Vital Signs Temp 97.6 F 12/06/20 07:45 Pulse 54 L 12/06/20 08:00 Resp 18 12/06/20 08:00 BP 159/70 12/06/20 07:45 Pulse Ox 97 12/06/20 07:45 Intake & Output 12/05/20 12/06/20 12/06/20 18:59 06:59 18:59 Output Total 500 Balance -500 Output: Urine 500 Other: Voiding Method Urinal Toilet Urinal # Voids 2 2 - Exam GENERAL: The patient is lying in bed and is not in acute distress. NEUROLOGICAL: Higher mental function: The patient is awake, alert, oriented to self, place and time. Patient is following commands. No aphasia and no neglect. Cranial nerves: The pupils are round, equal and reactive to light and accommodation. Visual leblanc are full to confrontation throughout. Extraocular movement is intact no nystagmus is noted. Facial sensation is normal to touch throughout. The facial strength is normal throughout. Hearing is normal bilaterally to hand rub. Tongue is midline and moved [id number] without any difficulty. No dysarthria is noted. Shoulder shrug is normal bilaterally. Motor: Gait is deferred. The strength is 5 over 5 throughout. Normal tone and bulk. Cerebellum: Normal finger to nose heel to miller bilaterally. Sensation: Sensation is normal to touch throughout. Plantars are downgoing bilaterally. - Labs CBC & Chem 7: 12/04/20 12:37 12/04/20 12:37 Assessment and Plan Assessment: * New onset bifrontal cephalalgia, with pressure in the eyes, possibly related to high blood pressure. Patient also had minor closed head injury one day prior to onset of this vertigo, when he hit his head on the barn door. Patient had experienced similar headache in the past when his blood pressure was running high at the time of diagnosis of atrial fibrillation 2 years ago. * Vertigo, probably due to peripheral vestibular dysfunction. His recent closed head injury may have triggered the vertigo. Likewise his personal attempt of trying to flush the wax out from the ears, (a week prior), may also have contributed. CT head showed clear paranasal sinuses and EAC. No acute or subacute stroke on MRI Brain. * Atrial fibrillation on Xarelto * Hypertension Plan: * Although headaches and vertigo are probably related to perhaps combination of high blood pressure and minor closed head injury, but because of atrial fibrillation, and being on Xarelto, * MRI the brain is reported as remote fluid collection or old infarct in the basal ganglia bilaterally. No acute ischemic event at. Mild nonspecific multi focal white matter changes at. No mass, mass effect or shift of the midline structure. No hydrocephalus at. I personally reviewed the MRI and I do not see any acute subacute ischemia. At that the patient has some white matter changes in this is possibly due to chronic small vessel disease. * Carotid duplex is reported as there is antegrade flow in the vertebral arteries. The images and measurements suggest less than 10% stenosis of both internal carotid artery. * Will change Antivert 12.5mg 1 tab TID PRN to schedule. * TSH: 1.39 (normal). * Patient was notified to follow up with the ENT as an outpatient and possibly consider vestibular rehab back therapy as an outpatient. Also he was notified to follow up by one time with a neurologist as outpatient. There is no further work-up needed. Herb Álvarez MD Neuro-Hospitalist
[2020-12-06 14:24] VITALS: BP 105/63; PULSE 55; TEMP 98.3
--- NOTE | 2020-12-06 15:35 | P.PN ---
Subjective Progress Note Date: 12/06/20 This a pleasant 70-year-old gentleman who follows with Dr. barbosa in the office has a history of persistent atrial fibrillation, currently maintaining sinus mechanism status post cardioversion, hypertension, chronotropic incompetence and dyslipidemia. He presented to the emergency department as advised by urgent care with complaints of dizziness and headache which started in 12/02/2020. He did bang his head quite hard and his arm the day before and when he woke up around 12:30 in the morning he felt as if the room was spinning. He is having dizziness both at rest and with activity. He's being followed by neurology who feels the patient has vertigo but did order an MRI to assess any secondary cau ses. This revealed remote fluid collection or infarcts in the basal ganglia bilaterally, no acute ischemic event, mild nonspecific multifocal white matter changes and no mass, mass effect or shift of the midline structures, no hydrocephalus. Blood pressure was initially elevated and adjustments were made to his antihypertensive agents blood pressure is better controlled today. His headache has resolved. He continues to have dizziness. Carotid duplex study showed no significant stenosis. He has bradycardic but this is stable for quite some time. Echocardiogram with Doppler study showed a low normal systolic function with ejection fraction between 50-55%, [id number] MR and mild TR. On examination patient is resting comfortably in bed. Again he continues to complain of dizziness but has no further headache. He's had no syncope, near syncope. No chest discomfort. Objective - Vital Signs Vital signs: Vital Signs Temp 97.6 F 12/06/20 07:45 Pulse 54 L 12/06/20 08:00 Resp 18 12/06/20 08:00 BP 159/70 12/06/20 07:45 Pulse Ox 97 12/06/20 07:45 Intake & Output 12/05/20 12/06/20 12/06/20 18:59 06:59 18:59 Output Total 500 Balance -500 Output: Urine 500 Other: Voiding Method Urinal Toilet Urinal # Voids 2 2 - Exam PHYSICAL EXAMINATION: HEENT: Head is atraumatic, normocephalic. Pupils equal, round. Neck is supple. There is no elevated jugular venous pressure. HEART EXAMINATION: Heart sounds regular, S1 and S2 normal with a systolic murmur. CHEST EXAMINATION: Lungs are clear to auscultation. No chest wall tenderness is noted on palpation or with deep breathing. ABDOMEN: Soft, nontender. Bowel sounds are heard. No organomegaly noted. EXTREMITIES: 2+ peripheral pulses with no evidence of peripheral edema and no calf tenderness noted. NEUROLOGIC patient is awake, alert and oriented x3. . - Labs CBC & Chem 7: 12/04/20 12:37 12/04/20 12:37 Assessment and Plan Assessment: #1 Sinus bradycardia, stable #2 Dizziness suggestive of vertigo or inner ear condition #3 Persistent atrial fibrillation, currently maintaining sinus mechanism s/p cardioversion on xarelto #4 Hypertension #5 Dyslipidemia #6 chronotropic incompetence Plan: From cardiology perspective, blood pressure is better controlled. Patient is bradycardic but this is stable. From our standpoint patient is stable for discharge home. Will follow-up in the office as an outpatient. DIGITAL EXPERIENCE MANAGER note has been reviewed, I agree with a documented findings and plan of care. Patient was seen and examined.
[2020-12-06] MEDS ORDERED: MECLIZINE 12.5 MG TAB PO SCH (16:00)
--- NOTE | 2020-12-06 17:26 | P.DS ---
Providers Date of admission: 12/04/20 16:47 Expected date of discharge: 12/06/20 Attending physician: Sabino Benjamin Consults: 12/04/20 16:12 Consult Physician Urgent Consulting Provider: Navarro Mendez Consult Reason/Comments: Symptomatic bradycardia Do you want consulting provider notified?: Yes 12/05/20 13:47 Consult Physician Routine Consulting Provider: Joshua Barrera Consult Reason/Comments: headache, dizziness Do you want consulting provider notified?: Yes Primary care physician: [facility] Course: Chief Complaint: Headache, dizziness History of presenting complaint: This is a very pleasant 70 year old patient of Dr. Lemos. Chronic stable medical conditions include atrial fibrillation, GERD, hypertension, hyperlipidemia, prostate cancer that is being followed. Patient about 4 weeks ago had a DC cardioversion by Dr. Reed. About 4 days ago patient bumped the top of present to the garage door and was feeling will for a few seconds. Since then he has noticed to have a slight headache and dizziness at all times. He gets very dizzy on moving his head. No change in vision. No focal weakness. Feels tired. No fever no chills. Symptoms are rather positional. Admitted with what is felt to be positional dizziness. Likely due to BPPV. - precipitated by head injury and possible ear washing. Headache which is slight likely a manifestation from bumping his head against the garage door. bradycardia - beta chaz was discontinued. Sravanthi maneuver started. Case was discussed with Dr. Singh from neurology Today: Feeling better. Was seen by neurology. MRI/carotid Doppler unremarkable. Results reviewed. Results discussed with the patient and at the bedside. Sravanthi maneuver to be done 4 times a day till symptoms resolved. Questions answered. Blood pressure medications were changed this is discussed with the patient and . Discussion and discharge planning more than 35 minutes Consultation: Dr. Singh from neurology Past medical history to include: Atrial fibrillation, GERD, hypertension, hyperlipidemia, prostate cancer, basal cell skin cancer, prostatectomy Social history: . Retired. 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 Started smoking age of 14 and stopped in 1988. Smoked half a pack a day. Alcohol occasionally. Physical examination: VITAL SIGNS: 98.3, 55, 18, 105/63, 96% room air GENERAL: Reclining in bed, awake. EYES: Pupils equal. Conjunctiva normal. NECK: JVD not raised; masses not palpable. HEART: First and second heart sounds are normal; no edema. LUNGS: Respiratory rate normal; clear to auscultation. ABDOMEN: Soft, nontender, liver spleen not palpable, no masses palpable. PSYCH: Alert and oriented x3; mood and affect normal. INVESTIGATIONS, reviewed in the clinical context: TSH 1.3 2-D echocardiogram: Moderate concentric LVH WBC 4.3 hemoglobin 15.2 platelets 163 potassium 4.4 creatinine 0.81 AST, ALT: Normal Coronavirus [PCR]: Not detected EKG tracing personally reviewed by me-sinus rhythm with a heart rate of 44 CT brain without contrast: Question tiny hyperdense right MCA area. CT and EO: [place]: Congenital radiation of the [place] Chest x-ray film personally reviewed by me-lungs clear Assessment and plan: -Likely benign paroxysmal positional vertigo. Causing dizziness Antivert when necessary. Sravanthi maneuvers as instructed -Sinus bradycardia secondary to beta chaz-discontinued -Hyperlipidemia Continue Pravachol -Essential hypertension, uncontrolled Continue with Norvasc. Increase lisinopril hydrochlorothiazide to twice daily. -Paroxysmal atrial fibrillation, currently sinus rhythm, with recent cardioversion Continue with xarelto -Cephalgia from mild head trauma Disposition: Home Plan - Discharge Summary New Discharge Prescriptions: New Meclizine [Antivert] 12.5 mg PO TID PRN #20 tab PRN Reason: Vertigo Continue Simvastatin [Zocor] 40 mg PO HS Ascorbic Acid [Vitamin C] 500 mg PO DAILY Cholecalciferol (Vitamin D3) [Vitamin D3] 2,000 unit PO DAILY Rivaroxaban [Xarelto] 20 mg PO W/SUPPER amLODIPine [Norvasc] 5 mg PO HS Changed Lisinopril-Hctz 20-12.5 mg [Zestoretic 20-12.5] 1 tab PO BID #60 tab Discharge Medication List Simvastatin [Zocor] 40 mg PO HS 09/13/14 [History] Ascorbic Acid [Vitamin C] 500 mg PO DAILY 06/06/15 [History] Cholecalciferol (Vitamin D3) [Vitamin D3] 2,000 unit PO DAILY 02/15/17 [History] Rivaroxaban [Xarelto] 20 mg PO W/SUPPER 06/22/19 [History] amLODIPine [Norvasc] 5 mg PO HS 06/29/19 [History] Lisinopril-Hctz 20-12.5 mg [Zestoretic 20-12.5] 1 tab PO BID #60 tab 12/06/20 [Rx] Meclizine [Antivert] 12.5 mg PO TID PRN #20 tab 12/06/20 [Rx] Follow up Appointment(s)/Referral(s): Tarun Reed MD [STAFF PHYSICIAN] - 2 Weeks Phi Benites DO [Doctor of Osteopathic Medicine] - 1 Week (Ear, Nose, and Throat doctor. ) Raffaele Lemos MD [Primary Care Provider] - 1-2 days Ky Fowler MD [Medical Doctor] - 1 Week (Neurology ) Patient Instructions/Handouts: Bradycardia (ED) Activity/Diet/Wound Care/Special Instructions: please keep blood pressure diary and take with you to your doctor appointment. Discharge Disposition: HOME SELF-CARE
== END 2020-12-06 16:28 | disposition home or self-care (01) ==
LOC: EC 10:52 → 6NMEDSUR 16:47
PROVIDERS: ADMIT Hospitalist; ATTEND Hospitalist
DX: R42 Dizziness and giddiness (principal); R00.1 Bradycardia, unspecified; T44.7X5A Adverse effect of beta-adrenoreceptor antagonists, initial encounter; E78.5 Hyperlipidemia, unspecified; I10 Essential (primary) hypertension; Z20.822 Contact with and (suspected) exposure to COVID-19; S09.90XA Unspecified injury of head, initial encounter; W22.8XXA Striking against or struck by other objects, initial encounter; X58.XXXA Exposure to other specified factors, initial encounter; I48.19 Other persistent atrial fibrillation; C61 Malignant neoplasm of prostate; I45.89 Other specified conduction disorders; K21.9 Gastro-esophageal reflux disease without esophagitis; K64.9 Unspecified hemorrhoids; Z79.01 Long term (current) use of anticoagulants; Z79.899 Other long term (current) drug therapy; Z88.5 Allergy status to narcotic agent; Z98.1 Arthrodesis status; Z90.49 Acquired absence of other specified parts of digestive tract; Z85.820 Personal history of malignant melanoma of skin; Z86.010 Personal history of colon polyps; Z87.891 Personal history of nicotine dependence; Z83.3 Family history of diabetes mellitus; Z80.0 Family history of malignant neoplasm of digestive organs; Z82.49 Family history of ischemic heart disease and other diseases of the circulatory system
CPT/HCPCS: 96361 ×2; 96360; 99285; 36415; 93005; 93306; 80053; 84443; 83735; 85025; 85610; 87635; 71046; 93880; 70496; 70450; 70551; G0378 ×3; Q9967

== ENCOUNTER → 2021-07-29 | Outpatient (CLI) | payer MEDICARE ==
[2021-07-29 15:00] LABS: Partial Thromboplastin Time 29.3 sec (22.0-30.0); Prothrombin Time 10.9 sec (9.0-12.0)
[2021-07-29 16:03] LABS: Appearance,Urine Clear (Clear); Bilirubin,Urine Negative (Negative); Blood,Urine Negative (Negative); Color,Urine Yellow; Glucose,Urine (UA) Negative (Negative); Ketones,Urine Negative (Negative); Leukocyte Esterase,Urine Negative (Negative); Nitrite,Urine Negative (Negative); Protein,Urine Negative (Negative); Specific Gravity,Urine 1.018 (1.001-1.035); Urobilinogen,Urine <2.0 mg/dL (<2.0)
[2021-07-29 18:31] LABS: HCT 38.3 % (39.6-50.0); HGB 12.8 g/dL (13.0-17.0); MCHC 33.4 g/dL (32.0-37.0); MCV 92.7 fL (80.0-97.0); Mean Platelet Volume 11.4 fL (9.5-12.2); Platelet Count 178 X 10*3/uL (140-440); RBC 4.13 X 10*6/uL (4.40-5.60); WBC 4.76 X 10*3/uL (4.50-10.00)
[2021-07-29 19:41] LABS: African American GFR (CKD) 86.3 (60.0-200.0); Albumin 4.1 g/dL (3.8-4.9); Albumin/Globulin Ratio 1.56 (1.60-3.17); Anion Gap 11.1 mmol/L (10.00-18.00); BUN/Creat Ratio 19.31 Ratio (12.00-20.00); Blood Urea Nitrogen 19.5 mg/dL (9.0-27.0); Calcium 9.2 mg/dL (8.7-10.3); Carbon Dioxide 26.6 mmol/L (20.0-27.5); Globulin 2.6 g/dL (1.6-3.3); Non-African American GFR(CKD) 74.5 (60.0-200.0); Potassium 4.8 mmol/L (3.5-5.5); Total Bilirubin 0.4 mg/dL (0.30-1.20); Total Protein 6.7 g/dL (6.2-8.2)
== END | disposition home or self-care (01) ==
LOC: LABPAT 13:03
PROVIDERS: ATTEND Orthopaedic Surgery
DX: Z01.818 Encounter for other preprocedural examination (principal); M16.11 Unilateral primary osteoarthritis, right hip; R00.1 Bradycardia, unspecified
CPT/HCPCS: 80053; 81003; 85027; 85610; 85730; 87070; 93005

== ENCOUNTER 2021-08-10 05:35 | Day surgery (SDC) | payer MEDICARE ==
[2021-08-05 13:17] VITALS: BMI 31.7
[~2021-08-10 05:35] MED LIST changes: +ACETAMINOPHEN TAB 500 MG TAB PO PRN; +GABAPENTIN 300 MG CAP PO PRN; +MELOXICAM 7.5 MG TAB PO PRN; -SODIUM CHLORIDE 0.9% 1,000 ML IV SCH; +TRANEXAMIC ACID 1,000 MG in SODIUM CHLORIDE 0.9% 100 ML IVPB PRN
[2021-08-10] MEDS ORDERED: ONDANSETRON 4 MG/2 ML VIAL IVP ONE (05:42)
[2021-08-10] MEDS ORDERED: DEXAMETHASONE SOD PHOSPHATE 4 MG/ML 1 ML VIAL IV ONE ×2 (05:42)
[2021-08-10] MEDS ORDERED: LACTATED RINGERS 1,000 ML IV SCH (05:42)
[2021-08-10] MEDS ORDERED: ONDANSETRON 4 MG/2 ML VIAL IVP PRN ×2 (05:42→08:43)
[2021-08-10] MEDS ORDERED: LIDOCAINE 1% (10MG/ML) FOR IV START INTRADERMA PRN (05:42)
[2021-08-10] MEDS ORDERED: HYDROmorphone 1 MG/ML 1 ML SYRINGE IVP PRN (05:42)
[2021-08-10] MEDS ORDERED: ceFAZolin 1,000 MG in SODIUM CHLORIDE 0.9% 1,000 ML IRRIGATION ONE (06:59)
[2021-08-10] MEDS ORDERED: ROPIVACAINE 5 MG/ML 30 ML VIAL MISCELLANE ONE ×2 (07:33→08:08)
--- NOTE | 2021-08-10 08:20 | P.OP ---
Date of Procedure: 08/10/21 Preoperative Diagnosis: Severe osteoarthritis right hip Postoperative Diagnosis: Severe osteoarthritis right hip Procedure(s) Performed: Right total hip arthroplasty direct anterior approach Implants: Neff [employer] Nephew Polarstem standard size 3 Neff [employer] Nephew R3, 3 hole hemispherical acetabular shell, 52 mm Neff [employer] Nephew Reflection 6.5 mm cancellus screw, 20 mm 2 Neff [employer] Nephew R3, XLPE 20 acetabular liner Neff & Nephew Oxinium femoral head 36 m, +0 All components were press-fit. The articulation is Oxinium on polyethylene. Anesthesia: GETA Surgeon: Konrad Ochoa Blueprint Reader #1: Phoebe Raya Estimated Blood Loss (ml): 200 Pathology: other (Femoral head) Condition: stable Disposition: PACU Indications for Procedure: After failure of conservative treatment we discussed the surgical and nonsurgical treatment options at length. Patient wishes to proceed with a total hip arthroplasty with a direct anterior approach. Complications specific to this procedure were discussed at length, including but not limited to infection, leg length discrepancy, dislocation, nerve injury, and fracture. Covid-19 was also discussed at length with the patient, and they are aware of the current policies and procedures. The patient was given the option of delaying surgery, but they elect to proceed knowing these risks. Patient is aware of all these complications and informed consent was obtained Operative Findings: The operative findings are consistent with severe osteoarthritis of the right hip Description of Procedure: Patient was seen and evaluated in the preoperative area and the consent was reviewed. The operative site was marked with a skin marker. The patient was then brought to the operating room and given preoperative antibiotics intrav enously. 1 g of Tranexamic acid was also given intravenously. A general anesthetic was administered by the anesthesia department. The patient was then placed on the [place] table with the bony prominences well-padded. The hip area was then prepped with a ChloraPrep solution and draped in the usual sterile fashion. A universal timeout was then performed, which confirmed the patient's name, surgical site, ALLERGIES, and procedure being performed on the consent. Next the incision site was located at 1 cm distal and 2 cm lateral to the anterior superior iliac spine. The skin and subcutaneous tissues were sharply incised. Incision was carefully dissected down to the fascia overlying the tensor fascia naomy muscle. This fascia was then incised in line with the incision. Care was taken to stay laterally in order to avoid injuring the lateral femoral cutaneous nerve. Next, using blunt finger dissection, the tensor fascia naomy muscle was dissected off its investing fascia. The muscle was then carefully retracted laterally with a cobra retractor over the lateral neck of the femur. Next, the circumflex vessels were identified and cauterized using the AquaMantis device. The anterior hip capsule was then exposed. The capsule was then opened and an inverted T fashion. Cobra retractors were then placed intracapsularly. The retractors were maintained intracapsular throughout the procedure. The proximal femur was then visualized. Fluoroscopic x-rays were then taken in order to evaluate the preoperative leg lengths. A small amount of traction was placed on the leg. The femoral neck was then osteotomized at the appropriate level above the lesser trochanter. A small wedge of bone was then removed from the remaining femoral head. Next, using a corkscrew the femoral head was removed from the acetabulum. On gross visual inspection, the femoral head had complete loss of articular cartilage and multiple periarticular osteophytes. The femoral head was then measured. Attention was then turned to the acetabulum. The acetabulum was exposed and any remaining labrum was excised. Sequential reaming of the acetabulum was performed using fluoroscopic guidance until there was a good bed of bleeding cancellus bone. When the appropriate size was reached, a trial was then placed. The position and fit of the trial was checked with fluoroscopy. The trial was then removed. Then, using fluoroscopic guidance, the final implant was impacted at 20 of anteversion and 40 of abduction, and fully seated in the acetabulum. 2 screws were then placed in the acetabulum. Again fluoroscopy was used to check position of the screws. Next, the liner was then impacted, with a 20 elevated liner located in the anterior superior quadrant. Component locking was confirmed. Attention was then directed to the femur. With the aid of the [place] table, the femur was externally rotated to approximately 130, extended, and adducted under the opposite leg. A side hook was then placed under the proximal femur, and the side hook elevator was used to elevate the proximal femur while releasing the capsule. Retractors were then placed. A capsular release was performed, as well as a release of the conjoined tendon, which afforded excellent visualization of the proximal femur. Next, a box osteotome was used to lateralize the proximal femur. A warehouse handler was then used to locate the femoral canal. Sequential broaching was then performed with appropriate size which afforded excellent fixation in the proximal femur. A trial was then placed with appropriate head and neck, and the hip was gently reduced with the aid of the [place] table. Fluoroscopy was then used to check position of the components, as well as to ensure equal leg lengths. The hip was then gently dislocated and the trials were then removed. Final implants were then impacted and the hip was again reduced. Final fluoroscopic x-rays confirmed that the components were in anatomic position, as well as equal leg lengths. The hip was also taken through range of motion, and found to be stable. The hip was then copiously irrigated with antibiotic solution with pulsatile lavage. The hip was then irrigated with Irrisept solution. The soft tissues were then injected with a ropivacaine solution. A second dose of 1 g of Tranexamic acid was also given intravenously. Any blood collected by Cell Saver was then returned to the patient at this time. The fascia was then closed with 2-0 strata fix suture. The subcutaneous tissue was closed with 3-0 Vicryl. The subcuticular tissue was closed with 3-0 strata fix suture. The skin was then closed with Exofin skin glue. After the glue and dried, and Optifoam silver impregnated dressing was applied. The patient was then transferred to the recovery room in stable condition. The laboratory assistant MARY Bond was required due to the complexity of surgery, and the need for skilled surgical instrument repair specialist for positioning, draping, exposure, retraction, and closure of the wound.
--- NOTE | 2021-08-10 08:29 | XR ---
EXAMINATION TYPE: XR Hip Limited RT DATE OF EXAM: 08/10/2021 COMPARISON: NONE HISTORY: Postop TECHNIQUE: One view submitted. FINDINGS: There is postsurgical change in near anatomic alignment. There is soft tissue edema and emphysema. IMPRESSION: 1. Postoperative change. Appears in near-anatomic alignment.
--- NOTE | 2021-08-10 08:32 | FL ---
EXAMINATION TYPE: FL guidance operating room DATE OF EXAM: 08/10/2021 HISTORY: Fluoroscopy time 23 seconds of fluoroscopy provided. IMPRESSION: 1. Fluoroscopy time.
[2021-08-10] MEDS ORDERED: NALOXONE 0.4 MG/ML 1 ML VIAL IV PRN (08:43)
[2021-08-10] MEDS ORDERED: HYDROmorphone 0.5 MG/0.5 ML SYRINGE IVP PRN ×2 (08:43)
[2021-08-10] MEDS ORDERED: HYDROmorphone 0.2 MG/1 ML SYRINGE IVP PRN (08:43)
[2021-08-10] MEDS ORDERED: SODIUM CHLORIDE 0.9% 1,000 ML IV SCH (08:45)
[2021-08-10] MEDS ORDERED: HYDROcodone/APAP 7.5-325MG 1 EACH TAB PO PRN ×2 (08:45)
[2021-08-10 08:48] VITALS: TEMP 97.6
[2021-08-10] MEDS: HYDROmorphone 1 MG/ML 1 ML SYRINGE IVP ONE ×2 (08:54→09:02)
[2021-08-10] MEDS ORDERED: fentaNYL (PF) 50 MCG/ML 2 ML AMP IVP ONE (09:26)
[2021-08-10] MEDS ORDERED: LACTATED RINGERS 1,000 ML IV ONE (11:19)
[2021-08-10 12:36] VITALS: RESP 18
[2021-08-10 14:11] VITALS: BP 122/66; PULSE 51
== END 2021-08-10 15:23 | disposition home health service (06) ==
LOC: OR 05:35
PROVIDERS: ATTEND Orthopaedic Surgery
DX: M16.11 Unilateral primary osteoarthritis, right hip (principal); E78.5 Hyperlipidemia, unspecified; I11.9 Hypertensive heart disease without heart failure; I48.91 Unspecified atrial fibrillation; H91.90 Unspecified hearing loss, unspecified ear; Z20.822 Contact with and (suspected) exposure to COVID-19; Z97.3 Presence of spectacles and contact lenses; Z98.52 Vasectomy status; Z85.46 Personal history of malignant neoplasm of prostate; Z85.828 Personal history of other malignant neoplasm of skin; Z98.1 Arthrodesis status; Z98.42 Cataract extraction status, left eye; Z98.41 Cataract extraction status, right eye; Z90.49 Acquired absence of other specified parts of digestive tract; Z98.890 Other specified postprocedural states; Z82.49 Family history of ischemic heart disease and other diseases of the circulatory system; Z87.891 Personal history of nicotine dependence; Z79.01 Long term (current) use of anticoagulants; Z79.1 Long term (current) use of non-steroidal anti-inflammatories (NSAID); Z79.891 Long term (current) use of opiate analgesic; Z79.899 Other long term (current) drug therapy; Z88.5 Allergy status to narcotic agent
CPT/HCPCS: 97116; 97161; 87635; 73501; 27130; C1776; J1100; J0690 ×2; J2405; J3010; J1170; J2795; 86850; 86900; 86901; 88305; 88311

== ENCOUNTER 2022-03-13 10:14 | Observation (INO) | payer MEDICARE ==
[2022-03-13 10:49] LABS: Basophils % (A) 1 %; Eosinophils # (A) 0.1 k/uL (0-0.7); Eosinophils % (A) 3 %; HCT 46.2 % (39.0-53.0); HGB 15.9 gm/dL (13.0-17.5); Lymphocytes # (A) 1.5 k/uL (1.0-4.8); Lymphocytes % (A) 28 %; MCH 31.7 pg (25.0-35.0); MCHC 34.3 g/dL (31.0-37.0); MCV 92.4 fL (80.0-100.0); Mean Platelet Volume 7.8; Monocytes # (A) 0.5 k/uL (0-1.0); Monocytes % (A) 10 %; Neutrophils % (A) 56 %; Platelet Count 203 k/uL (150-450); RDW 12.8 % (11.5-15.5); WBC 5.4 k/uL (3.8-10.6)
[2022-03-13 10:55] LABS: Potassium 4.3 mmol/L (3.5-5.1)
[2022-03-13 10:57] LABS: INR 1.1 (<1.2); Partial Thromboplastin Time 30.8 sec (22.0-30.0); Prothrombin Time 11.5 sec (9.0-12.0)
[2022-03-13 10:58] LABS: Albumin 4.5 g/dL (3.5-5.0); Calcium 9.4 mg/dL (8.4-10.2); Total Bilirubin 1.1 mg/dL (0.2-1.3); Total Protein 7.2 g/dL (6.3-8.2)
[2022-03-13] MEDS ORDERED: DILTIAZEM 5 MG/ML 5 ML VIAL IVP STA (11:38)
--- NOTE | 2022-03-13 11:41 | ED ---
General Adult HPI - General Chief complaint: Arrhythmia/Palpitations Stated complaint: AFib Time Seen by Provider: 03/13/22 11:05 Source: patient, family, RN notes reviewed Mode of arrival: ambulatory Limitations: no limitations - History of Present Illness Initial comments: Patient is a pleasant 71-year-old male presenting to the emergency department w ith concerns for atrial fibrillation. Patient has had some mild chest tightness since the middle the night. Patient has had similar symptoms for 5 times previously associated with atrial fibrillation. Patient has needed previous cardioversion. Tightness is mild and continues. Mild dyspnea. Patient is on anticoagulation - Related Data Home Medications Medication Instructions Recorded Confirmed Simvastatin [Zocor] 40 mg PO HS 09/13/14 11/19/21 Rivaroxaban [Xarelto] 20 mg PO PC-SUPPER 06/22/19 11/19/21 amLODIPine [Norvasc] 5 mg PO HS 06/29/19 11/19/21 Acetaminophen [Tylenol Extra 1,000 mg PO Q6HR PRN 08/05/21 11/18/21 Strength] Fiber Pill 2 tab PO QAM PRN 08/05/21 11/19/21 Stool Softner 1 tab PO Q2D PRN 08/05/21 11/18/21 Flecainide [Tambocor] 50 mg PO Q12HR 11/18/21 11/19/21 Lisinopril-Hctz 20-12.5 mg 1 tab PO QAM 11/18/21 11/18/21 [Zestoretic 20-12.5] Meloxicam [Mobic] 15 mg PO DAILY PRN 11/18/21 11/18/21 Multivitamins, Thera [Multivitamin 1 tab PO DAILY 11/18/21 11/19/21 (formulary)] lisinopriL [Zestril] 20 mg PO HS 11/18/21 11/19/21 Allergies Allergy/AdvReac Type Severity Reaction Status Date / Time morphine AdvReac Severe Nausea & Verified 03/13/22 10:19 Vomiting Review of Systems ROS Statement: Those systems with pertinent positive or pertinent negative responses have been documented in the HPI. ROS Other: All systems not noted in ROS Statement are negative. Constitutional: Denies: fever Eyes: Denies: eye pain ENT: Denies: ear pain Respiratory: Reports: as per HPI. Denies: cough Cardiovascular: Reports: as per HPI Endocrine: Reports: as per HPI Gastrointestinal: Denies: abdominal pain Genitourinary: Denies: dysuria Musculoskeletal: Denies: back pain Skin: Denies: rash Neurological: Denies: weakness Past Medical History Past Medical History: Atrial Fibrillation, Cancer, GERD/Reflux, Hearing Disorder / Deafness, Hyperlipidemia, Hypertension, Musculoskeletal Disorder, Osteoarthritis (OA), Sleep Apnea/CPAP/BIPAP Additional Past Medical History / Comment(s): Hx prostate Cancer-no chemo or radiation, Skin Cancer, heart murmur, hearing aids. Arthritis in back. Sl sleep apnea, no tx. History of Any Multi-Drug Resistant Organisms: None Reported Past Surgical History: Appendectomy, Back Surgery, Heart Catheterization, Joint Replacement, Orthopedic Surgery, Prostate Surgery Additional Past Surgical History / Comment(s): Back fusion w/ bone. Prostatectomy, Bilat rotator cuff, Exc Cysts from neck & tail bone, Circumcision age 40. Colonoscopy, benign poly; valentina Cataracts; cardioversion 06/2019, 11/2020; melanoma removed. Total Rt hip 08/10/21. Past Anesthesia/Blood Transfusion Reactions: No Reported Reaction Past Psychological History: No Psychological Hx Reported Smoking Status: Former smoker Past Alcohol Use History: None Reported Past Drug Use History: None Reported - Past Family History Sister(s) Family Medical History: Cancer Additional Family Medical History / Comment(s): pancreatic Father Family Medical History: Cancer Additional Family Medical History / Comment(s): prostate and COLON CA Mother Family Medical History: Cancer Additional Family Medical History / Comment(s): skin cancer General Exam Limitations: no limitations General appearance: alert, in no apparent distress Head exam: Present: normocephalic Eye exam: Present: normal appearance Neck exam: Present: normal inspection Respiratory exam: Present: normal lung sounds bilaterally Cardiovascular Exam: Present: regular rate, irregular rhythm Expanded Peripheral pulses: 2+: Radial (R), Radial (L), Posterior Tibialis (R), Posterior Tibialis (L) GI/Abdominal exam: Present: soft. Absent: tenderness Extremities exam: Present: normal inspection. Absent: pedal edema, calf tenderness Neurological exam: Present: alert Psychiatric exam: Present: normal affect, normal mood Skin exam: Present: normal color Course Vital Signs 03/13/22 03/13/22 10:16 11:11 Temperature 97.6 F Pulse Rate 89 83 Respiratory 20 18 Rate Blood Pressure 124/74 133/80 O2 Sat by Pulse 98 99 Oximetry EKG Findings - EKG Comments: EKG Findings:: A. fib with rate of 90. QRS 90. QT 345. QTC 392. Normal axis. Normal QRS. No acute ST change. Medical Decision Making - Medical Decision Making Patient reevaluated. Patient still in A. fib heart rate 66. Patient states usually when this happens cardiology will do cardioversion. Patient would like to stay for cardiac evaluation. Case discussed with Dr. Cordova, who will admit covering hospital observation call - Lab Data Result diagrams: 03/13/22 10:24 03/13/22 10:24 Lab Results 03/13/22 03/13/22 03/13/22 Range/Units 10:24 10:24 10:24 WBC 5.4 (3.8-10.6) k/uL RBC 5.00 (4.30-5.90) m/uL Hgb 15.9 (13.0-17.5) gm/dL Hct 46.2 (39.0-53.0) % MCV 92.4 (80.0-100.0) fL MCH 31.7 (25.0-35.0) pg MCHC 34.3 (31.0-37.0) g/dL RDW 12.8 (11.5-15.5) % Plt Count 203 (150-450) k/uL MPV 7.8 Neutrophils % 56 % Lymphocytes % 28 % Monocytes % 10 % Eosinophils % 3 % Basophils % 1 % Neutrophils # 3.0 (1.3-7.7) k/uL Lymphocytes # 1.5 (1.0-4.8) k/uL Monocytes # 0.5 (0-1.0) k/uL Eosinophils # 0.1 (0-0.7) k/uL Basophils # 0.0 (0-0.2) k/uL PT 11.5 (9.0-12.0) sec INR 1.1 (<1.2) APTT 30.8 H (22.0-30.0) sec Sodium 136 L (137-145) mmol/L Potassium 4.3 (3.5-5.1) mmol/L Chloride 98 (98-107) mmol/L Carbon Dioxide 28 (22-30) mmol/L Anion Gap 10 mmol/L BUN 22 H (9-20) mg/dL Creatinine 1.01 (0.66-1.25) mg/dL Est GFR (CKD-EPI)AfAm 86 (>60 ml/min/1.73 sqM) Est GFR (CKD-EPI)NonAf 75 (>60 ml/min/1.73 sqM) Glucose 98 (74-99) mg/dL Calcium 9.4 (8.4-10.2) mg/dL Total Bilirubin 1.1 (0.2-1.3) mg/dL AST 26 (17-59) U/L ALT 17 (4-49) U/L Alkaline Phosphatase 63 (38-126) U/L Troponin I (0.000-0.034) ng/mL Total Protein 7.2 (6.3-8.2) g/dL Albumin 4.5 (3.5-5.0) g/dL 03/13/22 Range/Units 10:24 WBC (3.8-10.6) k/uL RBC (4.30-5.90) m/uL Hgb (13.0-17.5) gm/dL Hct (39.0-53.0) % MCV (80.0-100.0) fL MCH (25.0-35.0) pg MCHC (31.0-37.0) g/dL RDW (11.5-15.5) % Plt Count (150-450) k/uL MPV Neutrophils % % Lymphocytes % % Monocytes % % Eosinophils % % Basophils % % Neutrophils # (1.3-7.7) k/uL Lymphocytes # (1.0-4.8) k/uL Monocytes # (0-1.0) k/uL Eosinophils # (0-0.7) k/uL Basophils # (0-0.2) k/uL PT (9.0-12.0) sec INR (<1.2) APTT (22.0-30.0) sec Sodium (137-145) mmol/L Potassium (3.5-5.1) mmol/L Chloride (98-107) mmol/L Carbon Dioxide (22-30) mmol/L Anion Gap mmol/L BUN (9-20) mg/dL Creatinine (0.66-1.25) mg/dL Est GFR (CKD-EPI)AfAm (>60 ml/min/1.73 sqM) Est GFR (CKD-EPI)NonAf (>60 ml/min/1.73 sqM) Glucose (74-99) mg/dL Calcium (8.4-10.2) mg/dL Total Bilirubin (0.2-1.3) mg/dL AST (17-59) U/L ALT (4-49) U/L Alkaline Phosphatase (38-126) U/L Troponin I <0.012 (0.000-0.034) ng/mL Total Protein (6.3-8.2) g/dL Albumin (3.5-5.0) g/dL - Radiology Data Radiology results: image reviewed (Chest x-ray reveals no acute process) Disposition Clinical Impression: Atrial fibrillation, Chest pain Disposition: ADMITTED IP TO THIS HOSP Is patient prescribed a controlled substance at d/c from ED?: No Referrals: Raffaele Lemos MD [Primary Care Provider] - 1-2 days Time of Disposition: 13:39
--- NOTE | 2022-03-13 12:37 | XR ---
EXAMINATION TYPE: XR chest 2V DATE OF EXAM: 03/13/2022 11:54 AM COMPARISON: Chest radiographs from 12/04/2020 TECHNIQUE: XR chest 2V Frontal and lateral views of the chest. CLINICAL INDICATION:Male, 71 years old with history of cp; FINDINGS: Lungs/Pleura: There is no evidence of pleural effusion, focal consolidation, or pneumothorax. Pulmonary vascularity: Unremarkable. Heart/mediastinum: Cardiomediastinal silhouette is unremarkable. Musculoskeletal: No acute osseous pathology. IMPRESSION: No acute cardiopulmonary disease/process.
[2022-03-13] MEDS ORDERED: NALOXONE 0.4 MG/ML 1 ML VIAL IV PRN (13:39)
--- NOTE | 2022-03-13 16:34 | P.HPIM ---
History of Present Illness H&P Date: 03/13/22 History of Presenting Illness: Patient is a very pleasant 71-year-old male with a past medical history of prostate cancer status post prostatectomy, hypertension, hyperlipidemia, paroxysmal atrial fibrillation on anticoagulation with Xarelto status post [address] Reed. He presented to the emergency department with a chief complaint of chest tightness and shortness of breath initially awakening him overnight but states these symptoms continued with any simple exertion such as walking to the bathroom and he knew something was wrong and that he must be back in atrial fibrillation so he came to the ER for evaluation as he was previously told by his supervisor orchard that if he went back into atrial fibrillation he will need a cardiac ablation. Patient denies having any other complaints including recent illness or exposure to known ill contact, fever, headache, lightheadedness, dizziness, palpitations, abdominal pain, nausea, or experiencing any numbness/tingling/weakness in his extremities. Patient describes pain to midsternal chest is a tightness accompanied by shortness of breath. Patient states symptoms are exacerbated with minimal exertion and are improved with rest. Currently rating pain 2-3 out of 10 at rest. Patient underwent full evaluation in the emergency department. EKG completed showing atrial fibrillation with a controlled ventricular rate of 90 bpm. Chest x-ray negative for acute cardiopulmonary process. CBC, coags, and CMP showing no significant abnormalities. Troponin less than 0.012. Patient was admitted under our services with consultation to cardiology. Review of systems: Pertinent positives and negatives as discussed in HPI, a complete review of systems was performed and all other systems are negative. Physical exam: Vital signs reviewed and stable. General: Nontoxic, no distress and appears stated age. Derm: Skin warm and dry, normal coloration for ethnicity. Head: Atraumatic, normocephalic and symmetric. Eyes: EOMs intact, no lid lag, and anicteric sclera Mouth: no lip lesions, mucus membranes moist Cardiovascular: Irregularly irregular, systolic murmur, positive posterior tibial pulses bilaterally, and cap refill < 2 seconds. Lungs: Respirations even, regular, and unlabored on room air. Lungs CTA bilaterally, no rhonchi, no rales, no wheezing, and no accessory muscle usage. Abdominal: soft, nontender to palpation, no guarding, no appreciable organomegaly Ext: ROM intact. No gross muscle atrophy, no edema, no contractures Neuro: Speech clear, face symmetrical and CN II-XII grossly intact with no noted focal neuro deficits Psych: Alert and oriented to person, place, time, and situation. Appropriate and pleasant affect. Assessment and Plan of Care: Chest tightness and shortness of breath with exertion, rule out acute coronary event Paroxysmal atrial fibrillation Hypertension Hyperlipidemia -Cardiology consult, appreciate further recommendations -Telemetry monitoring -Trend troponins -Cardiac diet -Continue cardiac medication regimen with Xarelto, amlodipine, lisinopril, l isinopril hydrochlorothiazide, and simvastatin. -Echocardiogram completed 12/05/20 showing an EF of 50-55% with mild to moderate mitral regurgitation. The patient is admitted with an anticipated less than 2 midnight stay for evaluation of chest tightness and shortness of breath CODE STATUS: Full code DVT prophylaxis: Xarelto Discussed with: Patient, patient's , and RN Anticipated discharge date: Clinical course to determine Anticipated discharge place Home A total of 40 minutes was spent on the care of this complex patient more than 50% of the time was spent in counseling and care coordination. I reviewed the documentation as provided by the AFTAB above, who is the original a uthor of this note. I agree with the documented assessment and plan, with the following changes: none Past Medical History Past Medical History: Atrial Fibrillation, Cancer, Chest Pain / Angina, GERD/Reflux, Hearing Disorder / Deafness, Hyperlipidemia, Hypertension, Musculoskeletal Disorder, Osteoarthritis (OA), Sleep Apnea/CPAP/BIPAP Additional Past Medical History / Comment(s): Hx prostate Cancer-no chemo or radiation, Skin Cancer, heart murmur, hearing aids. Arthritis in back. sleep apnea, no cpap. recent pain injection in the back. History of Any Multi-Drug Resistant Organisms: None Reported Past Surgical History: Appendectomy, Back Surgery, Heart Catheterization, Joint Replacement, Orthopedic Surgery, Prostate Surgery Additional Past Surgical History / Comment(s): Back fusion w/ bone. Prostatectomy, Bilat rotator cuff, Exc Cysts from neck & tail bone, Circumcision age 40. Colonoscopy, benign poly; valentina Cataracts; cardioversion 06/2019, 11/2020; melanoma removed. Total Rt hip 08/10/21. Past Anesthesia/Blood Transfusion Reactions: No Reported Reaction Past Psychological History: No Psychological Hx Reported Additional Psychological History / Comment(s): . Smoking Status: Former smoker Past Alcohol Use History: None Reported Additional Past Alcohol Use History / Comment(s): started smoking age 14, quit 1988, smoked 1/2 ppd Past Drug Use History: None Reported - Past Family History Sister(s) Family Medical History: Cancer Additional Family Medical History / Comment(s): pancreatic Father Family Medical History: Cancer Additional Family Medical History / Comment(s): prostate and COLON CA Mother Family Medical History: Cancer Additional Family Medical History / Comment(s): skin cancer Medications and Allergies Home Medications Medication Instructions Recorded Confirmed Type Simvastatin [Zocor] 40 mg PO HS 09/13/14 03/13/22 History Rivaroxaban [Xarelto] 20 mg PO PC-SUPPER 06/22/19 03/13/22 History amLODIPine [Norvasc] 5 mg PO HS 06/29/19 03/13/22 History Acetaminophen [Tylenol Extra 1,000 mg PO Q6HR PRN 08/05/21 03/13/22 History Strength] Lisinopril-Hctz 20-12.5 mg 1 tab PO DAILY 11/18/21 03/13/22 History [Zestoretic 20-12.5] Multivitamins, Thera [Multivitamin 1 tab PO DAILY 11/18/21 03/13/22 History (formulary)] lisinopriL [Zestril] 20 mg PO HS 11/18/21 03/13/22 History Allergies Allergy/AdvReac Type Severity Reaction Status Date / Time morphine AdvReac Severe Nausea & Verified 03/13/22 14:41 Vomiting Physical Exam Osteopathic Statement: *. No significant issues noted on an osteopathic struc tural exam other than those noted in the History and Physical/Consult. Vitals: Vital Signs Temp Pulse Pulse Resp BP BP Pulse Ox 03/13/22 15:47 84 16 03/13/22 15:08 97.4 F L 84 16 137/80 98 03/13/22 13:50 75 18 123/79 98 03/13/22 11:11 83 18 133/80 99 03/13/22 10:16 97.6 F 89 20 124/74 98 Intake and Output 03/13/22 03/13/22 03/13/22 06:59 14:59 22:59 Other: Voiding Method Toilet Weight 97.522 kg 97.522 kg Results CBC & Chem 7: 03/13/22 10:24 03/13/22 10:24 Labs: Abnormal Lab Results - Last 24 Hours (Table) 03/13/22 03/13/22 Range/Units 10:24 10:24 APTT 30.8 H (22.0-30.0) sec Sodium 136 L (137-145) mmol/L BUN 22 H (9-20) mg/dL Thrombosis Risk Factor Assmnt - Choose All That Apply Any of the Below Risk Factors Present?: Yes Each Factor Represents 1 point: Obesity (BMI >25) Each Risk Factor Represents 2 Points: Age 61-74 years Thrombosis Risk Factor Assessment Total Risk Factor Score: 3 Thrombosis Risk Factor Assessment Level: Moderate Risk
[2022-03-13] MEDS: RIVAROXABAN 20 MG TAB PO SCH (18:31)
[2022-03-13] MEDS: amLODIPine 5 MG TAB PO SCH (20:40)
[2022-03-13] MEDS: lisinopriL 20 MG TAB PO SCH (20:40)
[2022-03-13] MEDS: ATORVASTATIN 20 MG TAB PO SCH (20:40)
[2022-03-14] MEDS: MULTIVITAMINS, THERA 1 EACH TAB PO SCH (08:13)
[2022-03-14] MEDS: LISINOPRIL-HCTZ 20-12.5 MG 1 EACH TAB PO SCH (08:13)
--- NOTE | 2022-03-14 11:03 | P.PN ---
Subjective Progress Note Date: 03/14/22 Hospital course: Patient is a very pleasant 71-year-old male with a past medical history of prostate cancer status post prostatectomy, hypertension, hyperlipidemia, paroxysmal atrial fibrillation on anticoagulation with Xarelto status post [address] Reed. 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 Patient denies having any other complaints including recent illness or exposure to known ill contact, fever, headache, lightheadedness, dizziness, palpitations, abdominal pain, nausea, or experiencing any numbness/tingling/weakness in his extremities. Patient describes pain to midsternal chest is a tightness accompanied by shortness of breath. Patient states symptoms are exacerbated with minimal exertion and are improved with rest. Currently rating pain 2-3 out of 10 at rest. Patient underwent full evaluation in the emergency department. EKG completed showing atrial fibrillation with a controlled ventricular rate of 90 bpm. Chest x-ray negative for acute cardiopulmonary process. CBC, coags, and CMP showing no significant abnormalities. Troponin less than 0.012. Patient was admitted under our services with consultation to cardiology. Troponins trended overnight all negative at less than 0.0123 draws. Patient reports he is free from chest pain and shortness of breath but returns with any exertion. Patient reports if he attempts to get up to use the restroom his heart rate increases into the 150s and has return of chest pain and shortness of breath. Patient currently remains in atrial fibrillation with a controlled ventricular rate at rest ranging from 70s to 90s. Physical exam: Patient seen and fully evaluated at bedside this morning. Patient reports feeling comfortable at rest but also states that he attempts to get up to use the restroom heart rate increases into the 150s and he has return of chest pain and shortness of breath. Patient remains in A. fib with a controlled ventricular rate ranging from 70s to 90s. He denies having any other complaints or concerns at this time. Cardiology planning to take patient for cardioversion tomorrow morning. Vital signs reviewed and stable. General: Nontoxic, no distress and appears stated age. Derm: Skin warm and dry, normal coloration for ethnicity. Head: Atraumatic, normocephalic and symmetric. Eyes: EOMs intact, no lid lag, and anicteric sclera Mouth: no lip lesions, mucus membranes moist Cardiovascular: Irregularly irregular, systolic murmur, positive posterior tibial pulses bilaterally, and cap refill < 2 seconds. Lungs: Respirations even, regular, and unlabored on room air. Lungs CTA bilaterally, no rhonchi, no rales, no wheezing, and no accessory muscle usage. Abdominal: soft, nontender to palpation, no guarding, no appreciable organomegaly Ext: ROM intact. No gross muscle atrophy, no edema, no contractures Neuro: Speech clear, face symmetrical and CN II-XII grossly intact with no noted focal neuro deficits Psych: Alert and oriented to person, place, time, and situation. Appropriate and pleasant affect. Assessment and Plan of Care: Chest tightness and shortness of breath with exertion, acute coronary event ru led out Paroxysmal atrial fibrillation Hypertension Hyperlipidemia -Cardiology following, plans to take patient for cardioversion tomorrow morning. -Telemetry monitoring -Troponins Negative -Cardiac diet -Continue cardiac medication regimen with Xarelto, amlodipine, lisinopril, lisinopril hydrochlorothiazide, and simvastatin. -Echocardiogram completed 12/05/20 showing an EF of 50-55% with mild to moderate mitral regurgitation. CODE STATUS: Full code DVT prophylaxis: Xarelto Discussed with: Patient and RN Anticipated discharge date: Clinical course to determine Anticipated discharge place Home A total of 33 minutes was spent on the care of this complex patient more than 50% of the time was spent in counseling and care coordination. Objective - Vital Signs Vital signs: Vital Signs Temp 97.8 F 03/14/22 07:10 Pulse 77 03/14/22 08:00 Resp 18 03/14/22 08:00 BP 115/74 03/14/22 07:10 Pulse Ox 98 03/14/22 07:10 FiO2 Intake & Output 03/13/22 03/14/22 03/14/22 18:59 06:59 18:59 Intake Total 118 Balance 118 Weight 97.522 kg Intake: Oral 118 Other: Voiding Method Toilet Toilet Toilet # Voids 2 1 # Bowel Movements 1 - Labs CBC & Chem 7: 03/13/22 10:24 03/13/22 10:24 Labs: Abnormal Lab Results - Last 24 Hours (Table) 03/13/22 Range/Units 10:24 Sodium 136 L (137-145) mmol/L BUN 22 H (9-20) mg/dL
--- NOTE | 2022-03-14 11:51 | P.CRDCN ---
History of Present Illness History of present illness: HISTORY OF PRESENTING ILLNESS This is a pleasant 71-year-old male past medical history significant for paroxysmal atrial fibrillation status post cardioversion, hypertension, chronotropic incompetence and dyslipidemia. He follows in the office with Dr. Reed. Unfortunately he has had a number of issues with atrial fibrillation and is usually symptomatic from his A. fib. He has required a number of cardioversions in the past. He was attempted on flecainide however had sig nificant issues feeling lightheaded and therefore the flecainide had been discontinued. There is additional concern about chronotropic incompetence. A. fib episodes have been fairly infrequent and therefore had been monitoring however previous discussion regarding possible ablation if continues to have issues. He states yesterday he started noticing he was more short of breath with minimal exertion and also having mild chest tightness feeling similar to previous with his A. fib. He presented to emergency department was noted to be in A. fib with relatively controlled ventricular rates however with minimal exertion such as walking the bathroom heart rates will go up into the 150 range. REVIEW OF SYSTEMS At the time of my exam: CONSTITUTIONAL: Denies fever or chills. CARDIOVASCULAR: +chest pain, +shortness of breath, no orthopnea, PND + palpitations. RESPIRATORY: Denies cough. GASTROINTESTINAL: Denies abdominal pain, diarrhea, constipation, nausea or vomiting. MUSCULOSKELETAL: Denies myalgias. NEUROLOGIC: Denies numbness, tingling, headacbe or weakness. ENDOCRINE: Denies fatigue, weight change, polydipsia or polyurina. GENITOURINARY: Denies burning, hematuria or urgency with micturation. HEMATOLOGIC: Denies history of anemia or bleeding. PHYSICAL EXAMINATION Blood pressure 135/72 heart rate 60 afebrile and maintaining oxygen saturation on room air. CONSTITUTIONAL: No apparent distress. HEENT: Head is normocephalic. Pupils are equal, round. Sclerae anicteric. Mucous membranes of the mouth are moist. No JVD. No carotid bruit. CHEST EXAMINATION: Lungs are clear to auscultation. No chest wall tenderness is noted on palpation or with deep breathing. HEART EXAMINATION: Irregular rate and rhythm. S1, S2 heard. Systolic ejection murmur at the base, no gallops or rub. ABDOMEN: Soft, nontender. Positive bowel sounds. EXTREMITIES: 2+ peripheral pulses, no lower extremity edema and no calf tenderness. NEUROLOGIC EXAMINATION: Patient is awake, alert and oriented x3. ASSESSMENT Seasonal A. fib currently A. fib with controlled ventricular rates however highly symptomatic Issues with lightheadedness and antiarrhythmics in the past including flecainide Hypertension Dyslipidemia Incompetent chronotropic response PLAN Patient states he has not missed any doses of his Xarelto last 30 days. He is highly symptomatic and therefore discussed repeat cardioversion and patient is agreeable. May consider trial of Elavil or antiarrhythmics such as sotalol or amiodarone or multtaq however he has had issues with chronotropic incompetence and was significantly lightheaded with flecainide previously. Therefore we discussed more definitive treatment with ablation and patient is agreeable. Hopeful cardioversion tomorrow and home after if patient feeling well. Past Medical History Past Medical History: Atrial Fibrillation, Cancer, Chest Pain / Angina, GERD/Reflux, Hearing Disorder / Deafness, Hyperlipidemia, Hypertension, Musculoskeletal Disorder, Osteoarthritis (OA), Sleep Apnea/CPAP/BIPAP Additional Past Medical History / Comment(s): Hx prostate Cancer-no chemo or radiation, Skin Cancer, heart murmur, hearing aids. Arthritis in back. sleep apnea, no cpap. recent pain injection in the back. History of Any Multi-Drug Resistant Organisms: None Reported Past Surgical History: Appendectomy, Back Surgery, Heart Catheterization, Joint Replacement, Orthopedic Surgery, Prostate Surgery Additional Past Surgical History / Comment(s): Back fusion w/ bone. Prostatectomy, Bilat rotator cuff, Exc Cysts from neck & tail bone, Circumcision age 40. Colonoscopy, benign poly; valentina Cataracts; cardioversion 06/2019, 11/2020; melanoma removed. Total Rt hip 08/10/21. Past Anesthesia/Blood Transfusion Reactions: No Reported Reaction Past Psychological History: No Psychological Hx Reported Additional Psychological History / Comment(s): . Smoking Status: Former smoker Past Alcohol Use History: None Reported Additional Past Alcohol Use History / Comment(s): started smoking age 14, quit 1988, smoked 1/2 ppd Past Drug Use History: None Reported - Past Family History Sister(s) Family Medical History: Cancer Additional Family Medical History / Comment(s): pancreatic Father Family Medical History: Cancer Additional Family Medical History / Comment(s): prostate and COLON CA Mother Family Medical History: Cancer Additional Family Medical History / Comment(s): skin cancer Medications and Allergies Home Medications Medication Instructions Recorded Confirmed Type Simvastatin [Zocor] 40 mg PO HS 09/13/14 03/13/22 History Rivaroxaban [Xarelto] 20 mg PO PC-SUPPER 06/22/19 03/13/22 History amLODIPine [Norvasc] 5 mg PO HS 06/29/19 03/13/22 History Acetaminophen [Tylenol Extra 1,000 mg PO Q6HR PRN 08/05/21 03/13/22 History Strength] Lisinopril-Hctz 20-12.5 mg 1 tab PO DAILY 11/18/21 03/13/22 History [Zestoretic 20-12.5] Multivitamins, Thera [Multivitamin 1 tab PO DAILY 11/18/21 03/13/22 History (formulary)] lisinopriL [Zestril] 20 mg PO HS 11/18/21 03/13/22 History Allergies Allergy/AdvReac Type Severity Reaction Status Date / Time morphine AdvReac Severe Nausea & Verified 03/13/22 14:41 Vomiting Physical Exam Vitals: Vital Signs Temp Pulse Pulse Resp BP BP Pulse Ox 03/14/22 08:00 77 18 03/14/22 07:10 97.8 F 77 18 115/74 98 03/14/22 01:54 98.1 F 99 17 120/81 95 03/13/22 20:23 97.6 F 88 16 138/74 96 03/13/22 20:00 84 16 03/13/22 15:47 84 16 03/13/22 15:08 97.4 F L 84 16 137/80 98 03/13/22 13:50 75 18 123/79 98 Intake and Output 03/13/22 03/14/22 03/14/22 22:59 06:59 14:59 Intake Total 118 Balance 118 Intake: Oral 118 Other: Voiding Method Toilet Toilet # Voids 2 1 # Bowel Movements 1 Weight 97.522 kg Results 03/13/22 10:24 03/13/22 10:24 Cardiac Enzymes 03/13/22 03/13/22 Range/Units 15:12 18:37 Troponin I <0.012 <0.012 (0.000-0.034) ng/mL Current Medications Generic Name Dose Route Start Last Admin Trade Name Freq PRN Reason Stop Dose Admin Amlodipine Besylate 5 mg 03/13/22 21:00 03/13/22 20:40 Amlodipine 5 Mg Tab PO 5 mg HS RIAZ Administration Atorvastatin Calcium 20 mg 03/13/22 21:00 03/13/22 20:40 Atorvastatin 20 Mg Tab PO 20 mg HS RIAZ Administration Lisinopril/HCTZ 1 each 03/14/22 09:00 03/14/22 08:13 Lisinopril-Hctz 20-12.5 Mg 1 Each Tab PO 1 each DAILY RIAZ Administration Lisinopril 20 mg 03/13/22 21:00 03/13/22 20:40 Lisinopril 20 Mg Tab PO 20 mg HS RIAZ Administration Multivitamins 1 each 03/14/22 09:00 03/14/22 08:13 Multivitamins, Thera 1 Each Tab PO 1 each DAILY RIAZ Administration Naloxone HCl 0.2 mg 03/13/22 13:39 Naloxone 0.4 Mg/Ml 1 Ml Vial IV Q2M PRN Opioid Reversal Rivaroxaban 20 mg 03/13/22 18:30 03/13/22 18:31 Rivaroxaban 20 Mg Tab PO 20 mg PC-SUPPER RIAZ Administration Protocol Intake and Output 03/13/22 03/14/22 03/14/22 22:59 06:59 14:59 Intake Total 118 Balance 118 Intake: Oral 118 Other: Voiding Method Toilet Toilet # Voids 2 1 # Bowel Movements 1 Weight 97.522 kg 03/13/22 10:24 03/13/22 10:24
[2022-03-14] MEDS: RIVAROXABAN 20 MG TAB PO SCH (18:10)
[2022-03-14] MEDS: lisinopriL 20 MG TAB PO SCH (19:36)
[2022-03-14] MEDS: amLODIPine 5 MG TAB PO SCH (19:36)
[2022-03-14] MEDS: ATORVASTATIN 20 MG TAB PO SCH (19:36)
[2022-03-15] MEDS: MULTIVITAMINS, THERA 1 EACH TAB PO SCH (09:10)
[2022-03-15] MEDS: LISINOPRIL-HCTZ 20-12.5 MG 1 EACH TAB PO SCH (09:10)
[2022-03-15] MEDS: SODIUM CHLORIDE 0.9% 1,000 ML IV SCH ×2 (09:11→13:26)
--- NOTE | 2022-03-15 16:34 | P.PN ---
Subjective Progress Note Date: 03/15/22 Hospital course: Patient is a very pleasant 71-year-old male with a past medical history of prostate cancer status post prostatectomy, hypertension, hyperlipidemia, paroxysmal atrial fibrillation on anticoagulation with Xarelto status post [address] Reed. He presented to the emergency department with a chief complaint of chest tightness and shortness of breath initially awakening him overnight but states these symptoms continued with any simple exertion such as walking to the bathroom and he knew something was wrong and that he must be back in atrial fibrillation so he came to the ER for evaluation as he was previously told by his senior business consultant that if he went back into atrial fibrillation he will need a cardiac ablation. Patient denies having any other complaints including recent illness or exposure to known ill contact, fever, headache, lightheadedness, dizziness, palpitations, abdominal pain, nausea, or experiencing any numbness/tingling/weakness in his extremities. Patient describes pain to midsternal chest is a tightness accompanied by shortness of breath. Patient states symptoms are exacerbated with minimal exertion and are improved with rest. Currently rating pain 2-3 out of 10 at rest. Patient underwent full evaluation in the emergency department. EKG completed showing atrial fibrillation with a controlled ventricular rate of 90 bpm. Chest x-ray negative for acute cardiopulmonary process. CBC, coags, and CMP showing no significant abnormalities. Troponin less than 0.012. Patient was admitted under our services with consultation to cardiology. Troponins trended overnight all negative at less than 0.0123 draws. Patient reports he is free from chest pain and shortness of breath but returns with any exertion. Patient reports if he attempts to get up to use the restroom his heart rate increases into the 150s and has return of chest pain and shortness of breath. Patient currently remains in atrial fibrillation with a controlled ventricular rate at rest ranging from 70s to 90s. Physical exam: Patient seen and fully evaluated at bedside this morning. He continues to rest comfortably at this time. He remains in A. fib with a controlled ventricular rate but again continues to go into RVR accompanied by chest pain and shortness of breath with any exertion. Cardiology planning to take patient for cardioversion later today. Patient denies having any complaints at rest at this time. Vital signs reviewed and stable. General: Nontoxic, no distress and appears stated age. Derm: Skin warm and dry, normal coloration for ethnicity. Head: Atraumatic, normocephalic and symmetric. Eyes: EOMs intact, no lid lag, and anicteric sclera Mouth: no lip lesions, mucus membranes moist Cardiovascular: Irregularly irregular, systolic murmur, positive posterior tibial pulses bilaterally, and cap refill < 2 seconds. Lungs: Respirations even, regular, and unlabored on room air. Lungs CTA bilaterally, no rhonchi, no rales, no wheezing, and no accessory muscle usage. Abdominal: soft, nontender to palpation, no guarding, no appreciable organomegaly Ext: ROM intact. No gross muscle atrophy, no edema, no contractures Neuro: Speech clear, face symmetrical and CN II-XII grossly intact with no noted focal neuro deficits Psych: Alert and oriented to person, place, time, and situation. Appropriate and pleasant affect. Assessment and Plan of Care: Chest tightness and shortness of breath with exertion, acute coronary event ruled out Paroxysmal atrial fibrillation Hypertension Hyperlipidemia -Cardiology following, plans to take patient for cardioversion later today. -Telemetry monitoring -Troponins Negative -Cardiac diet -Continue cardiac medication regimen with Xarelto, amlodipine, lisinopril, lisinopril hydrochlorothiazide, and simvastatin. -Echocardiogram completed 12/05/20 showing an EF of 50-55% with mild to moderate mitral regurgitation. CODE STATUS: Full code DVT prophylaxis: Xarelto Discussed with: Patient and RN Anticipated discharge date: Clinical course to determine Anticipated discharge place Home A total of 35 minutes was spent on the care of this complex patient more than 50% of the time was spent in counseling and care coordination. Objective - Vital Signs Vital signs: Vital Signs Temp 97.7 F 03/15/22 15:00 Pulse 79 03/15/22 15:00 Resp 18 03/15/22 15:00 BP 110/71 03/15/22 15:00 Pulse Ox 96 03/15/22 15:00 FiO2 Intake & Output 03/14/22 03/15/22 03/15/22 18:59 06:59 18:59 Intake Total 118 118 Balance 118 118 Intake: Oral 118 118 Other: Voiding Method Toilet Toilet # Voids 3 1 2 # Bowel Movements 1 - Labs CBC & Chem 7: 03/13/22 10:24 03/13/22 10:24
[2022-03-15] MEDS: RIVAROXABAN 20 MG TAB PO SCH (17:43)
[2022-03-15] MEDS: lisinopriL 20 MG TAB PO SCH (20:57)
[2022-03-15] MEDS: amLODIPine 5 MG TAB PO SCH (20:57)
[2022-03-15] MEDS: ATORVASTATIN 20 MG TAB PO SCH (20:57)
[2022-03-16 04:01] VITALS: TEMP 98.2
[2022-03-16] MEDS ORDERED: PROPOFOL 10 MG/ML 20 ML VIAL IV ONE (07:15)
[2022-03-16] MEDS ORDERED: LIDOCAINE 2% INJ 20 MG/ML (2 ML VIAL) ONE (07:15)
[2022-03-16] MEDS ORDERED: IV FLUID CONTINUATION 500 ML IV ONE (07:25)
[2022-03-16] MEDS ORDERED: BENZOCAINE SPRAY 1 CAN TOPICAL ONE (07:27)
[2022-03-16 07:42] VITALS: RESP 16
--- NOTE | 2022-03-16 07:43 | P.PCN ---
Date of Procedure: 03/16/22 Description of Procedure: Indication: Evaluation of left atrial appendage Procedure Description: After explaining the procedure to the patient, it's risk and complications, blood pressure, heart rate and O2 saturation were monitored. The throat was sprayed with Cetacaine. Patient received sedation per anesthesia department. The probe was introduced into the esophagus without difficulty. Images were obtained. Following that, the probe was removed. There was no immediate complication. Findings: Left atrial size is moderately dilated, right atrial size is normal. Left atrial appendage is normal. Left ventricle size and systolic function are normal. The aortic valve appears to be normal, mitral and tricuspid valve are normal. Descending thoracic aorta appears to be normal. No pericardial effusion was noted. Contrast bubble study revealed no shunting across the intra-atrial septum. Doppler: Pulse wave and color Doppler were obtained, mild mitral and tricuspid regurgitation with trace pulmonic regurgitation. There is no shunting by color Doppler study Conclusion: 1. Mildly dilated left atrium with normal appearance of the left atrial appendage 2. Normal in size and systolic function 3. Mild mitral and tricuspid regurgitation 4. No shunting across the intra-atrial septum 5. Normal appearance of the descending thoracic aorta
[2022-03-16] MEDS ORDERED: SODIUM CHLORIDE 0.9% 1,000 ML IV SCH (07:45)
--- NOTE | 2022-03-16 07:45 | P.PCN ---
Date of Procedure: 03/16/22 Description of Procedure: Cardioversion Indications: Atrial fibrillation Procedure: After explaining the procedure to the patient as well as the risks and the complications, after obtaining sedated state. Anesthesia department and performing transesophageal echocardiogram synchronized biphasic cardioversion using 150 J was performed with muslim of normal sinus rhythm. There was no immediate complications. The patient was in sinus mechanism with episodes of junctional rhythm.
[2022-03-16] MEDS: MULTIVITAMINS, THERA 1 EACH TAB PO SCH (09:21)
[2022-03-16] MEDS: LISINOPRIL-HCTZ 20-12.5 MG 1 EACH TAB PO SCH (09:21)
[2022-03-16 13:06] VITALS: BP 124/76; PULSE 88
[2022-03-16] MEDS: SODIUM CHLORIDE 0.9% 1,000 ML IV SCH (14:54)
--- NOTE | 2022-03-16 18:44 | P.DS ---
Providers Date of admission: 03/13/22 13:40 Expected date of discharge: 03/16/22 Attending physician: Donnie Galvin MD Consults: 03/13/22 13:39 Consult Physician Routine Consulting Provider: Navarro Mendez Consult Reason/Comments: a fib, cp Do you want consulting provider notified?: Yes Primary care physician: [facility] Course: Discharge Diagnosis: Chest tightness and shortness of breath with exertion, acute coronary event ruled out. Patient was found to be back in atrial fibrillation and underwent successful cardioversion resulting in conversion to normal sinus rhythm. Patient to follow-up in cardiology office on 03/24/22 for reevaluation and further discussion on cardiac ablation. Patient to continue daily medication regimen with Xarelto, amlodipine, lisinopril, lisinopril hydrochlorothiazide, and simvastatin. Paroxysmal atrial fibrillation, patient underwent successful cardioversion and resulting in conversion to normal sinus rhythm. Hypertension, monitor vital signs and continue daily medication regimen with amlodipine, lisinopril, and lisinopril/hydrochlorothiazide. Hyperlipidemia, continue daily medication regimen with simvastatin. Hospital Course: Patient is a very pleasant 71-year-old male with a past medical history of prostate cancer status post prostatectomy, hypertension, hyperlipidemia, paroxysmal atrial fibrillation on anticoagulation with Xarelto status post [address] Reed. He presented to the emergency department with a chief complaint of chest tightness and shortness of breath initially awakening him overnight but states these symptoms continued with any simple exertion such as walking to the bathroom and he knew something was wrong and that he must be back in atrial fibrillation so he came to the ER for evaluation as he was previously told by his wind energy engineer that if he went back into atrial fibrillation he will need a cardiac ablation. Patient denies having any other complaints including recent illness or exposure to known ill contact, fever, headache, lightheadedness, dizziness, palpitations, abdominal pain, nausea, or experiencing any numbness/tingling/weakness in his extremities. Patient describes pain to midsternal chest is a tightness accompanied by shortness of breath. Patient states symptoms are exacerbated with minimal exertion and are improved with rest. Currently rating pain 2-3 out of 10 at rest. Patient underwent full evaluation in the emergency department. EKG completed showing atrial fibrillation with a controlled ventricular rate of 90 bpm. Chest x-ray negative for acute cardiopulmonary process. CBC, coags, and CMP showing no significant abnormalities. Troponin less than 0.012. Patient was admitted under our services with consultation to cardiology. Troponins trended overnight all negative at less than 0.0123 draws. Patient reports he is free from chest pain and shortness of breath but returns with any exertion. Patient reports if he attempts to get up to use the restroom his heart rate increases into the 150s and has return of chest pain and shortness of breath. Patient currently remains in atrial fibrillation with a controlled ventricular rate at rest ranging from 70s to 90s. Patient underwent cardioversion this morning with Dr. Reed successfully converting to normal sinus rhythm. Patient is medically stable at this time and to follow-up with PCP as well as outpatient in cardiology office on 03/24/22 for reevaluation and further discussion on cardiac ablation. Patient to continue daily medication regimen with Xarelto, amlodipine, lisinopril, lisinopril hydrochlorothiazide, and simvastatin. Physical exam: Vital signs reviewed and stable. General: Nontoxic, no distress and appears stated age. Derm: Skin warm and dry, normal coloration for ethnicity. Head: Atraumatic, normocephalic and symmetric. Eyes: EOMs intact, no lid lag, and anicteric sclera Mouth: no lip lesions, mucus membranes moist Cardiovascular: Irregularly irregular, systolic murmur, positive posterior tibial pulses bilaterally, and cap refill < 2 seconds. Lungs: Respirations even, regular, and unlabored on room air. Lungs CTA bilaterally, no rhonchi, no rales, no wheezing, and no accessory muscle usage. Abdominal: soft, nontender to palpation, no guarding, no appreciable organomegaly Ext: ROM intact. No gross muscle atrophy, no edema, no contractures Neuro: Speech clear, face symmetrical and CN II-XII grossly intact with no noted focal neuro deficits Psych: Alert and oriented to person, place, time, and situation. Appropriate and pleasant affect. A total of 35 minutes of time were spent preparing this complex discharge summary. Pt was discharged on 03/16/22 at 11:23 AM. Patient Condition at Discharge: Stable Plan - Discharge Summary Discharge Rx Participant: No New Discharge Prescriptions: Continue Simvastatin [Zocor] 40 mg PO HS Rivaroxaban [Xarelto] 20 mg PO PC-SUPPER amLODIPine [Norvasc] 5 mg PO HS Lisinopril-Hctz 20-12.5 mg [Zestoretic 20-12.5] 1 tab PO DAILY lisinopriL [Zestril] 20 mg PO HS Acetaminophen [Tylenol Extra Strength] 1,000 mg PO Q6HR PRN PRN Reason: Pain Multivitamins, Thera [Multivitamin (formulary)] 1 tab PO DAILY Discharge Medication List Simvastatin [Zocor] 40 mg PO HS 09/13/14 [History] Rivaroxaban [Xarelto] 20 mg PO PC-SUPPER 06/22/19 [History] amLODIPine [Norvasc] 5 mg PO HS 06/29/19 [History] Acetaminophen [Tylenol Extra Strength] 1,000 mg PO Q6HR PRN 08/05/21 [History] Lisinopril-Hctz 20-12.5 mg [Zestoretic 20-12.5] 1 tab PO DAILY 11/18/21 [History] Multivitamins, Thera [Multivitamin (formulary)] 1 tab PO DAILY 11/18/21 [History] lisinopriL [Zestril] 20 mg PO HS 11/18/21 [History] Follow up Appointment(s)/Referral(s): Tarun Reed MD [STAFF PHYSICIAN] - 03/24/22 3:00 pm Raffaele Lemos MD [Primary Care Provider] - 1-2 days Patient Instructions/Handouts: A-fib (Atrial Fibrillation) (DC), Cardioversion (DC) Activity/Diet/Wound Care/Special Instructions: Activity: As tolerated. Take breaks as needed. Diet: Heart healthy and carb consistent diet. Avoid salts, or foods with hidden salts such as canned or boxed foods and frozen dinners. Extra salt makes your heart work harder and traps the fluid in your body for longer. Special Instructions: Take all of your medications as directed and remember to keep all of your doctor's appointments and follow-up as needed. Thank you for allowing us to participate in your care, it was truly a pleasure having you for our patient!!! Discharge Disposition: HOME SELF-CARE
== END 2022-03-16 15:11 | disposition home or self-care (01) ==
LOC: EC 10:14 → 6NMEDSUR 13:40
PROVIDERS: ADMIT Internal Medicine; ATTEND Internal Medicine
DX: I48.0 Paroxysmal atrial fibrillation (principal); I08.1 Rheumatic disorders of both mitral and tricuspid valves; K21.9 Gastro-esophageal reflux disease without esophagitis; E78.5 Hyperlipidemia, unspecified; I10 Essential (primary) hypertension; G47.30 Sleep apnea, unspecified; Z85.46 Personal history of malignant neoplasm of prostate; Z85.820 Personal history of malignant melanoma of skin; Z87.891 Personal history of nicotine dependence; Z90.79 Acquired absence of other genital organ(s); Z98.1 Arthrodesis status; Z79.1 Long term (current) use of non-steroidal anti-inflammatories (NSAID); Z79.01 Long term (current) use of anticoagulants; Z79.899 Other long term (current) drug therapy; Z88.5 Allergy status to narcotic agent; Z80.8 Family history of malignant neoplasm of other organs or systems; Z80.0 Family history of malignant neoplasm of digestive organs
CPT/HCPCS: 96374; 99285; 36415; 93005; 93312; 93320; 93325; 92960 ×2; 80053; 84484; 85025; 85610; 85730; 71046; G0378 ×4; J2704; J2001

== ENCOUNTER → 2022-04-06 | Outpatient (CLI) | payer MEDICARE ==
[2022-04-06 16:14] LABS: HCT 40.5 % (39.6-50.0); HGB 14.2 g/dL (13.0-17.0); MCH 31.7 pg (27.0-32.0); MCHC 35.1 g/dL (32.0-37.0); MCV 90.4 fL (80.0-97.0); Mean Platelet Volume 11.1 fL (9.5-12.2); NRBC Per 100 WBC 0 /100 WBCS (0.0-0.0); Platelet Count 179 X 10*3/uL (140-440); RBC 4.48 X 10*6/uL (4.40-5.60); RDW 12.2 % (11.5-14.5); WBC 4.96 X 10*3/uL (4.50-10.00)
[2022-04-06 16:37] LABS: African American GFR (CKD) 88.6 (60.0-200.0); Anion Gap 7.9 mmol/L (10.00-18.00); Blood Urea Nitrogen 16.9 mg/dL (9.0-27.0); Carbon Dioxide 29.2 mmol/L (20.0-27.5); Non-African American GFR(CKD) 76.4 (60.0-200.0); Potassium 4.9 mmol/L (3.5-5.5)
== END | disposition home or self-care (01) ==
LOC: LABPAT 10:31
PROVIDERS: ATTEND Internal Medicine Clinical Cardiac Electrophysiology
DX: Z01.812 Encounter for preprocedural laboratory examination (principal); I25.10 Atherosclerotic heart disease of native coronary artery without angina pectoris; I48.21 Permanent atrial fibrillation
CPT/HCPCS: 80051; 82565; 84520; 85027

== ENCOUNTER 2022-04-08 05:56 | Day surgery (SDC) | payer MEDICARE ==
[2022-04-06 14:49] VITALS: BMI 31.7
[2022-04-08] MEDS: SODIUM CHLORIDE 0.9% 1,000 ML IV SCH (06:31)
[2022-04-08] MEDS ORDERED: LIDOCAINE 2% INJ 20 MG/ML (2 ML VIAL) ONE (07:36)
[2022-04-08] MEDS ORDERED: PROPOFOL 10 MG/ML 20 ML VIAL IV ONE (07:36)
[2022-04-08] MEDS ORDERED: fentaNYL (PF) 50 MCG/ML 2 ML AMP ONE (07:36)
[2022-04-08] MEDS ORDERED: ATROPINE SULFATE 0.1 MG/ML 10ML SYRINGE ONE (07:36)
[2022-04-08] MEDS ORDERED: PHENYLEPHRINE-0.9% NACL SYG 1,000 MCG/10 ML SYRINGE ONE (07:36)
[2022-04-08] MEDS ORDERED: MIDAZOLAM 2 MG/2 ML VIAL ONE (07:36)
[2022-04-08] MEDS ORDERED: HEPARIN SODIUM,PORCINE 5,000 UNIT/ML 1 ML VIAL ONE (07:36)
[2022-04-08] MEDS ORDERED: SUCCINYLCHOLINE CHLORIDE 200 MG/10 ML VIAL IV ONE (07:36)
[2022-04-08] MEDS ORDERED: HEPARIN SOD,PORK IN 0.45% NACL 25,000 UNIT in 0.45% NACL 1 250ML.BAG IV ONE (08:14)
[2022-04-08] MEDS ORDERED: LIDOCAINE 1% INJ 10MG/ML (30 ML VIAL-PF) SQ ONE (08:15)
[2022-04-08] MEDS ORDERED: IOPAMIDOL-370 100ML BTL INJ ONE (09:41)
[2022-04-08] MEDS ORDERED: ACETAMINOPHEN TAB 325 MG TAB PO PRN (11:03)
[2022-04-08] MEDS ORDERED: ACETAMINOPHEN IV (For NPO) 1,000 MG in EMPTY BAG 1 BAG IVPB ONE (11:03)
[2022-04-08] MEDS ORDERED: SODIUM CHLORIDE 0.9% 1,000 ML IV ONE (11:14)
[2022-04-08] MEDS ORDERED: MEPERIDINE 50 MG/ML SYRINGE IVP ONE (11:27)
[2022-04-08] MEDS: LACTATED RINGERS 1,000 ML IV SCH (12:50)
--- NOTE | 2022-04-08 15:19 | P.EPPROC ---
- EP Procedure Note Electrophysiology Procedure Note: PROCEDURE A. fib ablation DIAGNOSIS Persistent Atrial fibrillation, symptomatic, refractory to therapy RESULT No left atrial appendage mass seen on intracardiac echo Successful A. fib ablation/pulmonary vein isolation of all veins using cryo- ablation Complete entrance block in all 4 veins confirmed Linear ablation left atrial roof Left atrial septal ablation No evidence for phrenic nerve injury Esophageal deflection YES, right-sided esophagus Electrical cardioversion with a synchronized shock across the chest YES PROCEDURE DETAILS Patient was brought to the EP lab in a fasting state after obtaining written informed consent. Procedure performed under general anesthesia Esophagus was intubated. Esophageal temperature monitoring with circa catheter. Esophageal deflection with an endoscope to avoid hypothermia of the esophagus. After initial muscle relaxant use, muscle relaxants were not given thereafter in order to assess phrenic nerve during procedure. Patient prepped and draped as per protocol Cryo ablation-set up with standard preparation of the cryoablation tools done. Femoral Venous access obtained on the right and left groins and sheaths placed Diagnostic catheters for the high right atrium, phrenic nerve stimulation and pacing, His bundle, coronary sinus placed Intracardiac echo catheter placed. Long sheath placed in the right atrium Left and right transseptal catheterization performed under intracardiac echo guidance. Intravenous heparin with aCT above 300 Later, catheter positioning and balloon positioning in the left atrium and pulmonary veins, under intracardiac echo guidance Diagnostic EP study with coronary sinus pacing and recording Baseline measurements: QRS 98 ms, QT 345 ms and HV interval 35 ms Transseptal catheterization performed RA pressure 14/9/11 LA pressure 17/7/11 Transseptal catheterization performed with standard sheath. The cryoablation sheath was then placed with an over the wire exchange without any acute complications. The cryoablation balloon was placed in the office of each pulmonary vein and all 4 pulmonary veins were isolated. IV dye was injected to confirm occlusion. Goal: achieve complete occlusion of the pulmonary vein, achieve -30 degrees C at 30 seconds and achieve -40 degrees C at 60 seconds and a time to effect of less than 60 seconds. If not, the balloon was repositioned to obtain this result After completion of Cryoblation with durations from 180-240 seconds, entrance block was confirmed with the Attain circular catheter in a roving fashion around the antrum of the pulmonary veins Phrenic nerve pacing was performed from the SVC, right innominate vein area and diaphragm voltage was monitored. Diaphragmatic contractions were also monitored manually for strength of contraction. At the end of the procedure the Achieve catheter was once again used to check for entrance block Phrenic nerve stimulation was performed to confirm diaphragmatic stimulation the end of the procedure Positive phrenic nerve stimulation in the right superior pulmonary vein. No paresis noted at the end of the ablation Complete isolation of the lites. Pulmonary vein Cine fluoroscopy was performed at the very end of the procedure to confirm movement of both diaphragms with inspiration and expiration Serial cryoablation was along the left atrial roof with a 50% overlap between each lesion, each lesion for 3 minutes No electrograms noted along the roof after the ablation Left atrial septal ablation performed successfully and no electrograms noted at the site at the end of the ablation At the end of the procedure the patient was extubated Venous sheaths were removed and hemostasis assured with a closure device PROCEDURES PERFORMED Diagnostic EP study CS pacing and recording Left and right transseptal catheterization Catheter the mapping of the tachycardia Intracardiac echocardiography Pulmonary vein isolation with transseptal and comprehensive EPS, [id number] Left atrial roof line, +[id number] Linear ablation, left atrium, +[id number] Electrical cardioversion with a synchronized shock across the chest [id number]
[2022-04-08] MEDS ORDERED: RIVAROXABAN 20 MG TAB PO SCH (18:30)
[2022-04-08] MEDS ORDERED: amLODIPine 5 MG TAB PO SCH (21:00)
[2022-04-08] MEDS ORDERED: ATORVASTATIN 20 MG TAB PO SCH (21:00)
[2022-04-08] MEDS ORDERED: lisinopriL 20 MG TAB PO SCH (21:00)
[2022-04-09] MEDS: LACTATED RINGERS 1,000 ML IV SCH (05:02)
[2022-04-09] MEDS: SODIUM CHLORIDE 0.9% 1,000 ML IV SCH (05:03)
--- NOTE | 2022-04-09 08:02 | P.DS ---
Providers Attending physician: Tacos Combs Primary care physician: [facility] Course: Patient was resting comfortably in bed No chest discomfort no dizziness no lightheadedness Mild sore throat On examination blood pressure is 117/70 and 137 71 mmHg pulse rate in the 60s Respirations normal No JVD Normal heart sounds normal S1 normal S2 no rub no gallop Is a clear no rhonchi no crackles Groins of healed well no swelling no hematoma Impression Persistent atrial fibrillation, symptomatic in his field medical treatment Status post A. fib ablation with pulmonary vein isolation, linear ablation of the left atrial roof and the left atrial septum as well as the jess in between the left-sided veins Hypertension Plan Ambulate in the hallways and if stable she'll be discharged home in the next few hours and follow-up of Dr. Reed in a week He should continue on his cardiac medications an antihypertensive therapy Continue anticoagulation Plan - Discharge Summary Discharge Rx Participant: Yes New Discharge Prescriptions: Continue Simvastatin [Zocor] 40 mg PO HS Rivaroxaban [Xarelto] 20 mg PO PC-SUPPER amLODIPine [Norvasc] 5 mg PO HS Lisinopril-Hctz 20-12.5 mg [Zestoretic 20-12.5] 1 tab PO DAILY lisinopriL [Zestril] 20 mg PO HS Acetaminophen [Tylenol Extra Strength] 1,000 mg PO Q6HR PRN PRN Reason: Pain Multivitamins, Thera [Multivitamin (formulary)] 1 tab PO DAILY Discharge Medication List Simvastatin [Zocor] 40 mg PO HS 09/13/14 [History] Rivaroxaban [Xarelto] 20 mg PO PC-SUPPER 06/22/19 [History] amLODIPine [Norvasc] 5 mg PO HS 06/29/19 [History] Acetaminophen [Tylenol Extra Strength] 1,000 mg PO Q6HR PRN 08/05/21 [History] Lisinopril-Hctz 20-12.5 mg [Zestoretic 20-12.5] 1 tab PO DAILY 11/18/21 [History] Multivitamins, Thera [Multivitamin (formulary)] 1 tab PO DAILY 11/18/21 [History] lisinopriL [Zestril] 20 mg PO HS 11/18/21 [History] Follow up Appointment(s)/Referral(s): Tarun Reed MD [STAFF PHYSICIAN] - 1 Week Activity/Diet/Wound Care/Special Instructions: Post EP study - Ablation instructions 1. Keep access sites dry for 2 days. 2. No heavy lifting or straining for 2 days. 3. Avoid bending the hips repeatedly for 2 days. 4. You may go up and down stairs slowly Call if the following is noted 1. Bleeding, increasing swelling or pain at the access sites. 2. Increasing chest discomfort, especially upon taking a deep breath. 3. Increasing shortness of breath, at rest or with exertion. 4. Undue cough / phlegm 5. Difficulty or pain while swallowing. 6. Pain or change in color in the extremities. 7. Fever, chills, rigors. 8. Increasing headache or neurologic symptoms. 9. Dizziness, fainting, palpitations Continue current medications including xarelto Discharge Disposition: HOME SELF-CARE
[2022-04-09 08:04] VITALS: BP 112/64; PULSE 69; RESP 18; TEMP 98.1
[2022-04-09] MEDS ORDERED: LISINOPRIL-HCTZ 20-12.5 MG 1 EACH TAB PO SCH (09:00)
== END 2022-04-09 09:28 | disposition home or self-care (01) ==
LOC: CATHEP 05:56 → 6NMEDSUR 09:43 → CATHEP 04-09 09:28
PROVIDERS: ATTEND Internal Medicine Clinical Cardiac Electrophysiology
DX: I48.0 Paroxysmal atrial fibrillation (principal); I10 Essential (primary) hypertension; E78.5 Hyperlipidemia, unspecified; Z79.899 Other long term (current) drug therapy; Z79.01 Long term (current) use of anticoagulants
CPT/HCPCS: 93656; 93657; C1894 ×2; C1769 ×4; C1760; C1730; C1893; J2250; J0330; J1644 ×2; J2175; J2001 ×2; J0461; J3010; J0131; J2370; J2704; Q9967

== ENCOUNTER 2022-10-25 10:22 | Emergency (ER) | payer MEDICARE ==
[2022-10-25 10:36] VITALS: RESP 18
--- NOTE | 2022-10-25 10:42 | ED ---
General Adult HPI - General Chief complaint: Syncope Stated complaint: Passed out last night/believes recovering from COVID Time Seen by Provider: 10/25/22 10:38 Source: patient, RN notes reviewed Mode of arrival: ambulatory - History of Present Illness Initial comments: Patient is a 72-year-old male presenting to the emergency room after having an episode of shortness of breath prior to having an episode of syncope at approximately 4 AM last night. He states he woke on the ground in his bathroom during the night last night while attempting to urinate. He reports f eeling unwell over the last week with Covid-like symptoms including shortness of breath, cough and congestion. He reports that the symptoms have improved. He reports similar symptoms last time he had Covid approximately 2 years ago. He was unsure of head trauma however does have some small abrasions to the right parietal region. He is currently on Xarelto for history of atrial fibrillation. He reports that he had a cardiac ablation and was in sinus rhythm after his ablation and typically has heart rate is in the 50s. He denies any palpitations. He has abrasions to his right forearm but denies any pain in the arm with the exception of pain from the abrasions. He denies pain in any other extremities or trunk. He reports that he contact his primary care provider who advised him to present to the emergency room for further evaluation. At this time he denies any chest pain, shortness of breath, palpitations, abdominal pain, nausea, vomiting, headache, dizziness, focal neurological deficits, weakness, fevers or chills. In addition to his A. fib history he has a past medical history of prostate cancer, hyperlipidemia, hypertension, osteoarthritis and sleep apnea without the use of CPAP. - Related Data Home Medications Medication Instructions Recorded Confirmed Simvastatin [Zocor] 40 mg PO HS 09/13/14 04/08/22 Rivaroxaban [Xarelto] 20 mg PO PC-SUPPER 06/22/19 04/08/22 amLODIPine [Norvasc] 5 mg PO HS 06/29/19 04/08/22 Acetaminophen [Tylenol Extra 1,000 mg PO Q6HR PRN 08/05/21 04/08/22 Strength] Lisinopril-Hctz 20-12.5 mg 1 tab PO DAILY 11/18/21 04/08/22 [Zestoretic 20-12.5] Multivitamins, Thera [Multivitamin 1 tab PO DAILY 11/18/21 04/08/22 (formulary)] lisinopriL [Zestril] 20 mg PO HS 11/18/21 04/08/22 Allergies Allergy/AdvReac Type Severity Reaction Status Date / Time morphine AdvReac Severe Nausea & Verified 10/25/22 10:36 Vomiting Review of Systems ROS Statement: Those systems with pertinent positive or pertinent negative responses have been documented in the HPI. ROS Other: All systems not noted in ROS Statement are negative. Past Medical History Past Medical History: Atrial Fibrillation, Cancer, Chest Pain / Angina, GERD/Reflux, Hearing Disorder / Deafness, Hyperlipidemia, Hypertension, Musculoskeletal Disorder, Osteoarthritis (OA), Sleep Apnea/CPAP/BIPAP Additional Past Medical History / Comment(s): Hx prostate Cancer-no chemo or radiation, Skin Cancer, heart murmur, hearing aids. Arthritis in back. sleep apnea, no cpap. recent pain injection in the back. History of Any Multi-Drug Resistant Organisms: None Reported Past Surgical History: Ablation Additional Past Surgical History / Comment(s): Back fusion w/ bone. Prostatectomy, Bilat rotator cuff, Exc Cysts from neck & tail bone, Circumcision age 40. Colonoscopy, benign poly; valentina Cataracts; cardioversion 06/2019, 11/2020; melanoma removed. Total Rt hip 08/10/21. Past Anesthesia/Blood Transfusion Reactions: No Reported Reaction Past Psychological History: No Psychological Hx Reported Smoking Status: Former smoker Past Alcohol Use History: None Reported Past Drug Use History: None Reported - Past Family History Sister(s) Family Medical History: Cancer Additional Family Medical History / Comment(s): pancreatic Father Family Medical History: Cancer Additional Family Medical History / Comment(s): prostate and COLON CA Mother Family Medical History: Cancer Additional Family Medical History / Comment(s): skin cancer Occupational Seizure History - Commerical Driving History Currently uses [employer] for employment (including self-employed).: No General Exam - General Exam Comments Initial Comments: GENERAL: No acute distress, well developed, well nourished. HEENT: Normocephalic, atraumatic. Pupils equal, round, reactive to light. Moist mucous membranes. No nystagmus. LUNGS: No respiratory distress. Clear to auscultation, no adventitious sounds, no use of accessory muscles. HEART: Regular rate and irregular rhythm without murmur, rub, or gallop. ABDOMEN: Normal bowel sounds. Soft, non-tender, non-distended. BACK: Normal inspection. EXTREMITIES: No edema. No tenderness. Moves all extremities. NEUROLOGIC: Alert & oriented x 3. CN II-XII grossly intact. PSYCHIATRIC: Normal affect and behavior. DERMATOLOGIC: Several small abrasions noted to lateral aspect of right forearm. Erythemic patches with slight abrasion to right head near parietal region. Course Vital Signs 10/25/22 10/25/22 10:32 13:18 Temperature 97.4 F L 98.9 F Pulse Rate 87 73 Respiratory 18 18 Rate Blood Pressure 140/90 104/71 O2 Sat by Pulse 98 99 Oximetry Medical Decision Making - Medical Decision Making Was pt. sent in by a medical professional or institution (, PA, SALES NEGOTIATOR, urgent care, hospital, or [facility]...) When possible be specific @ -No Did you speak to anyone other than the patient for history (EMS, parent, family, police, friend...)? What history was obtained from this source @ -Yes, at bedside confirming HPI information provided Did you review nursing and triage notes (agree or disagree)? Why? @ -I reviewed and agree with nursing and triage notes Were old charts reviewed (outside hosp., previous admission, EMS record, old EKG, old radiological studies, urgent care reports/EKG's, [facility] records)? Report findings @ -Yes, previous EKGs from April and May 2022 reviewed. Differential Diagnosis (chest pain, altered mental status, abdominal pain women, abdominal pain men, vaginal bleeding, weakness, fever, dyspnea, syncope, headache, dizziness, GI bleed, back pain, seizure, CVA, palpatations, mental health, musculoskeletal)? @ -Differential Syncope: Valvular disease, hypertrophic cardiomyopathy, pulmonary embolism, tamponade, tachycardia, bradycardia, MT, hypovolemia, hemorrhage, dissection, anemia, intracranial hemorrhage, seizure, hypoglycemia, carbon monoxide poisoning, this is not meant to be an all-inclusive list. EKG interpreted by me (3pts min.). @ -EKG interpreted by me demonstrates atrial fibrillation ventricular rate 80 bpm OK interval * ms, QRS duration 93 ms, QT/QTC 356/391 ms, PRT axes *, 31, 23 X-rays interpreted by me (1pt min.). @ -Chest x-ray two-view: No consolidation, infiltration or pneumothorax. No acute cardiopulmonary process. CT interpreted by me (1pt min.). @ -CT brain and cervical spine without contrast: No intracranial bleed, mass or ischemia noted. No cervical fracture or subluxation. U/S interpreted by me (1pt. min.). @ -None done What testing was considered but not performed or refused? (CT, X-rays, U/S, labs)? Why? @ -None What meds were considered but not given or refused? Why? @ -None Did you discuss the management of the patient with other professionals (professionals i.e. , PA, SALES NEGOTIATOR, lab, RT, psych nurse, social insurance analyst, python java developer, teacher, labor relations officer, casework manager)? Give summary @ -No Was smoking cessation discussed for >3mins.? @ -No Was critical care preformed (if so, how long)? @ -No Were there social determinants of health that impacted care today? How? (Homelessness, low income, unemployed, alcoholism, drug addiction, transportation, low edu. Level, literacy, decrease access to med. care, [facility], rehab)? @ -No Was there de-escalation of care discussed even if they declined (Discuss DNR or withdrawal of care, Hospice)? DNR status @ -No What co-morbidities impacted this encounter? (DM, HTN, Smoking, COPD, CAD, Cancer, CVA, ARF, Chemo, Hep., AIDS, mental health diagnosis, sleep apnea, morb id obesity)? @ -[facility] Was patient [facility] / discharged? Hospital course, mention meds given and route, prescriptions, significant lab abnormalities, going to OR and other pertinent info. @ -72-year-old male presenting to the emergency room after having an episode of shortness of breath prior to having an episode of syncope where he woke on the ground in his bathroom during the night last night while attempting to urinate. He reports feeling unwell over the last week with Covid-like symptoms including shortness of breath, cough and congestion. He reports similar symptoms last time he had Covid approximately 2 years ago. He was unsure of head trauma however does have some small abrasions to the right parietal region. Will start workup for syncope along with fall with head trauma on anticoagulants with CT of the brain and cervical spine without contrast, chest x-ray, EKG, CBC, CMP, d-dimer, magnesium, coags, troponin along with 4-plex swab for COVID, RSV and influenza. Laboratory studies completed. CBC demonstrates low WBC at 3.7 differential normal. Coags and d-dimer normal. CMP demonstrates low chloride and low sodium 133 sodium, chloride 97 glucose elevated at 111, potassium and magnesium normal, liver enzymes and renal function normal, troponin negative. Viral swabbing for influenza and RSV negative Covid a detected. The setting of symptom onset 1 week ago not a candidate for antiviral treatment. Chest x-ray with no acute cardiopulmonary process. CT of the head and cervical spine negative for acute findings. EKG demonstrates atrial fibrillation with a known history of atrial fibrillation on Xarelto. No indication for further diagnostic imaging or laboratory studies at this time. Above findings discussed with patient and spouse at length. Questions and concerns answered. Strict return parameters to the emergency room discussed. Encouraged good hydration. Recommended utilizing mask or quarantining for 5 days post testing positive for COVID. Recommend follow-up with cementer machine applicator due to recurrence of paroxysmal atrial fibrillation and continuation of Xarelto. Advised changing of positions slowly. Will discharge home in stable condition with [id number] symptom management for Covid and primary care/cardiology follow-up regarding syncope. Undiagnosed new problem with uncertain prognosis? @ -No Drug Therapy requiring intensive monitoring for toxicity (Heparin, Nitro, Insulin, Cardizem)? @ -No Were any procedures done? @ -No Diagnosis/symptom? @ -Syncope Acute, or Chronic, or Acute on Chronic? @ -Acute Uncomplicated (without systemic symptoms) or Complicated (systemic symptoms)? @ -Uncomplicated Side effects of treatment? @ -No Exacerbation, Progression, or Severe Exacerbation? @ -No Poses a threat to life or bodily function? How? (Chest pain, USA, MT, pneumonia, PE, COPD, DKA, ARF, appy, cholecystitis, CVA, Diverticulitis, Homicidal, Suicidal, threat to staff... and all critical care pts) @ -No Diagnosis/symptom? @ -Covid Acute, or Chronic, or Acute on Chronic? @ -Acute Uncomplicated (without systemic symptoms) or Complicated (systemic symptoms)? @ -Uncomplicated Side effects of treatment? @ -none Exacerbation, Progression, or Severe Exacerbation] @ -no Poses a threat to life or bodily function? @ -no Case discussed with Dr. Tobin - Lab Data Result diagrams: 10/25/22 10:55 10/25/22 10:55 Lab Results 10/25/22 10/25/22 10/25/22 Range/Units 10:55 10:55 10:55 WBC 3.7 L (3.8-10.6) k/uL RBC 4.99 (4.30-5.90) m/uL Hgb 15.6 (13.0-17.5) gm/dL Hct 46.0 (39.0-53.0) % MCV 92.1 (80.0-100.0) fL MCH 31.3 (25.0-35.0) pg MCHC 34.0 (31.0-37.0) g/dL RDW 11.7 (11.5-15.5) % Plt Count 163 (150-450) k/uL MPV 8.7 Neutrophils % 51 % Lymphocytes % 38 % Monocytes % 7 % Eosinophils % 1 % Basophils % 0 % Neutrophils # 1.9 (1.3-7.7) k/uL Lymphocytes # 1.4 (1.0-4.8) k/uL Monocytes # 0.3 (0-1.0) k/uL Eosinophils # 0.0 (0-0.7) k/uL Basophils # 0.0 (0-0.2) k/uL PT 10.7 (9.0-12.0) sec INR 1.0 (<1.2) APTT 29.2 (22.0-30.0) sec D-Dimer 0.41 (<0.60) mg/L FEU Sodium 133 L (137-145) mmol/L Potassium 4.7 (3.5-5.1) mmol/L Chloride 97 L (98-107) mmol/L Carbon Dioxide 30 (22-30) mmol/L Anion Gap 6 mmol/L BUN 16 (9-20) mg/dL Creatinine 0.80 (0.66-1.25) mg/dL Est GFR (CKD-EPI)AfAm >90 (>60 ml/min/1.73 sqM) Est GFR (CKD-EPI)NonAf 90 (>60 ml/min/1.73 sqM) Glucose 111 H (74-99) mg/dL Calcium 9.2 (8.4-10.2) mg/dL Magnesium 2.1 (1.6-2.3) mg/dL Total Bilirubin 0.6 (0.2-1.3) mg/dL AST 30 (17-59) U/L ALT 20 (4-49) U/L Alkaline Phosphatase 62 (38-126) U/L Troponin I (0.000-0.034) ng/mL Total Protein 7.1 (6.3-8.2) g/dL Albumin 4.1 (3.5-5.0) g/dL Influenza Type A (PCR) (Not Detectd) Influenza Type B (PCR) (Not Detectd) RSV (PCR) (Not Detectd) SARS-CoV-2 (PCR) (Not Detectd) 10/25/22 10/25/22 Range/Units 10:55 10:55 WBC (3.8-10.6) k/uL RBC (4.30-5.90) m/uL Hgb (13.0-17.5) gm/dL Hct (39.0-53.0) % MCV (80.0-100.0) fL MCH (25.0-35.0) pg MCHC (31.0-37.0) g/dL RDW (11.5-15.5) % Plt Count (150-450) k/uL MPV Neutrophils % % Lymphocytes % % Monocytes % % Eosinophils % % Basophils % % Neutrophils # (1.3-7.7) k/uL Lymphocytes # (1.0-4.8) k/uL Monocytes # (0-1.0) k/uL Eosinophils # (0-0.7) k/uL Basophils # (0-0.2) k/uL PT (9.0-12.0) sec INR (<1.2) APTT (22.0-30.0) sec D-Dimer (<0.60) mg/L FEU Sodium (137-145) mmol/L Potassium (3.5-5.1) mmol/L Chloride (98-107) mmol/L Carbon Dioxide (22-30) mmol/L Anion Gap mmol/L BUN (9-20) mg/dL Creatinine (0.66-1.25) mg/dL Est GFR (CKD-EPI)AfAm (>60 ml/min/1.73 sqM) Est GFR (CKD-EPI)NonAf (>60 ml/min/1.73 sqM) Glucose (74-99) mg/dL Calcium (8.4-10.2) mg/dL Magnesium (1.6-2.3) mg/dL Total Bilirubin (0.2-1.3) mg/dL AST (17-59) U/L ALT (4-49) U/L Alkaline Phosphatase (38-126) U/L Troponin I <0.012 (0.000-0.034) ng/mL Total Protein (6.3-8.2) g/dL Albumin (3.5-5.0) g/dL Influenza Type A (PCR) Not Detected (Not Detectd) Influenza Type B (PCR) Not Detected (Not Detectd) RSV (PCR) Not Detected (Not Detectd) SARS-CoV-2 (PCR) Detected A (Not Detectd) - Radiology Data Radiology results: report reviewed, image reviewed Disposition Clinical Impression: Syncope, COVID-19 Disposition: HOME SELF-CARE Condition: Stable Instructions (If sedation given, give patient instructions): A-fib (Atrial Fib rillation) (ED), Syncope (ED), COVID-19 (Coronavirus Disease 2019) (ED) Additional Instructions: Please quarantine for 5 days after testing positive and restart quarantine if symptoms worsen. Please utilize Tylenol as needed for fevers and pain. Taking vitamin C, Zinc, vitamin D 50 mcg, and melatonin may help symptom recovery. Please stay well hydrated. Change positions slowly. Please follow-up with your primary care provider and cementer machine applicator. Please return to the Emergency Department if symptoms worsen or any other concerns. Is patient prescribed a controlled substance at d/c from ED?: No Referrals: Raffaele Lemos MD [Primary Care Provider] - 1-2 days Tarun Reed MD [STAFF PHYSICIAN] - As Soon As Possible (in 2-3 weeks or sooner if needed ) Time of Disposition: 12:57
[2022-10-25 11:27] LABS: Basophils % (A) 0 %; Eosinophils % (A) 1 %; HGB 15.6 gm/dL (13.0-17.5); Lymphocytes # (A) 1.4 k/uL (1.0-4.8); Lymphocytes % (A) 38 %; MCH 31.3 pg (25.0-35.0); MCV 92.1 fL (80.0-100.0); Mean Platelet Volume 8.7; Monocytes # (A) 0.3 k/uL (0-1.0); Monocytes % (A) 7 %; Neutrophils # (A) 1.9 k/uL (1.3-7.7); Neutrophils % (A) 51 %; Platelet Count 163 k/uL (150-450); RBC 4.99 m/uL (4.30-5.90); RDW 11.7 % (11.5-15.5); WBC 3.7 k/uL (3.8-10.6)
--- NOTE | 2022-10-25 11:27 | XR ---
EXAMINATION TYPE: XR chest 2V DATE OF EXAM: 10/25/2022 COMPARISON: NONE TECHNIQUE: PA and lateral views submitted. HISTORY: syncope FINDINGS: The lungs are clear and there is no pneumothorax, pleural effusion, or focal pneumonia. Heart size normal and no overt failure. Osseous structures demonstrate hypertrophic and degenerative changes of the spine. Atherosclerotic change aorta. Arthropathy of the shoulders. Hyperinflation suggests COPD. IMPRESSION: 1. No acute process.
[2022-10-25 11:32] LABS: ALT 20 U/L (4-49); AST 30 U/L (17-59); African American GFR (CKD) >90 (>60 ml/min/1.73 sqM); Albumin 4.1 g/dL (3.5-5.0); Alkaline Phosphatase 62 U/L (38-126); Anion Gap 6 mmol/L; Blood Urea Nitrogen 16 mg/dL (9-20); Calcium 9.2 mg/dL (8.4-10.2); Carbon Dioxide 30 mmol/L (22-30); Chloride 97 mmol/L (98-107); Glucose 111 mg/dL (74-99); Magnesium 2.1 mg/dL (1.6-2.3); Non-African American GFR(CKD) 90 (>60 ml/min/1.73 sqM); Potassium 4.7 mmol/L (3.5-5.1); Sodium 133 mmol/L (137-145); Total Bilirubin 0.6 mg/dL (0.2-1.3); Total Protein 7.1 g/dL (6.3-8.2)
[2022-10-25 12:02] LABS: Partial Thromboplastin Time 29.2 sec (22.0-30.0); Prothrombin Time 10.7 sec (9.0-12.0)
--- NOTE | 2022-10-25 12:24 | CT ---
EXAMINATION TYPE: CT brain cspine wo con CT DLP: 1740.8 mGycm, Automated exposure control for dose reduction was used. DATE OF EXAM: 10/25/2022 11:50 AM COMPARISON: 12/04/2020. CLINICAL INDICATION:Male, 72 years old with history of fall/ syncope on xarelto; Fall, syncope on Xar elto TECHNIQUE: Brain: Multiple axial CT images of the brain were obtained without IV contrast. Cspine: Axial CT images from the skull base to the inferior aspect of T2 we obtained without intraven ous contrast. Coronal and sagittal reformatted images were also reviewed. FINDINGS: Brain: Extra-axial spaces: No abnormal extra-axial fluid collections. Ventricular system: Within normal limits Cerebral parenchyma: No acute intraparenchymal hemorrhage or mass effect. The briceño-white junction is well differentiated. Cerebellum: Unremarkable. Mass effect: No evidence of midline shift. Intracranial vasculature: unremarkable Soft tissues: Normal. Calvarium/osseous structures: No depressed skull fracture. Paranasal sinuses and mastoid air cells: Clear. Visualized orbits: Bilateral aphakia Cervical spine: Fracture: None. Osseous structures: Multilevel degenerative disc disease changes with endplate spurring and disc oste ophyte complex's. Vertebral alignment: Within normal limits. Spinal canal/Neural Foramina: Disc osteophyte complexes at C5-C6 C6-C7 with at least mild spinal rivas l stenosis. Facet joint uncovertebral joint arthropathy scattered throughout the cervical spine with varying degrees of neural foraminal stenosis. Neck soft tissues: Prevertebral soft tissues are within normal limits. Other: The airway is patent. The lung apices are clear. Atherosclerosis of the carotid artery bifurca tions. IMPRESSION: 1. No acute intracranial process. 2. No evidence of cervical spine fracture. 3. Mild multilevel degenerative disc disease.
[2022-10-25 13:19] VITALS: BP 104/71; PULSE 73; TEMP 98.9
== END 2022-10-25 13:19 | disposition home or self-care (01) ==
LOC: EC 10:22
DX: U07.1 COVID-19 (principal); I48.91 Unspecified atrial fibrillation; E78.5 Hyperlipidemia, unspecified; I10 Essential (primary) hypertension; M19.90 Unspecified osteoarthritis, unspecified site; Z87.891 Personal history of nicotine dependence; Z88.8 Allergy status to other drugs, medicaments and biological substances; Z79.899 Other long term (current) drug therapy
CPT/HCPCS: 36415; 70450; 71046; 72125; 80053; 83735; 84484; 85025; 85379; 85610; 85730; 87636; 93005; 99285

== ENCOUNTER 2022-11-03 08:42 | Day surgery (SDC) | payer MEDICARE ==
[2022-11-03] MEDS ORDERED: LACTATED RINGERS 1,000 ML IV ONE (09:16)
[2022-11-03 09:19] VITALS: TEMP 97.6
[2022-11-03] MEDS ORDERED: BENZOCAINE SPRAY 1 CAN TOPICAL ONE ×2 (09:48→10:15)
[2022-11-03] MEDS ORDERED: PROPOFOL 10 MG/ML 20 ML VIAL IV ONE (10:10)
--- NOTE | 2022-11-03 10:39 | P.PCN ---
Date of Procedure: 11/03/22 Description of Procedure: Indication: Atrial fibrillation Procedure Description: After explaining the procedure to the patient, it's risk and complications, blood pressure, heart rate and O2 saturation were monitored. The throat was sprayed with Cetacaine. Patient received sedation per anesthesia department. The probe was introduced into the esophagus without difficulty. Images were obtained. Following that, the probe was removed. There was no immediate complication. Findings: Left atrial size is dilated, left atrial appendage is normal. Left ventricle size and systolic function are normal. The aortic valve, mitral valve, tricuspid and pulmonic valve are normal. Descending thoracic aorta appears to be normal. Contrast bubble study revealed no shunting across the intra-atrial septum. No pericardial effusion was noted. Doppler: Pulse wave and color Doppler were obtained, and revealed moderate mitral with mild tricuspid regurgitation, there was no shunting by color Doppler study. Conclusion: 1. Dilated left atrium with normal appearance of the left atrial appendage 2. Normal left ventricular size and systolic function 3. Moderate mitral with mild tricuspid regurgitation 4. Normal appearance of the descending thoracic aorta 5. No evidence of shunting across the intra-atrial septum Cardioversion: After obtaining CORRINA and obtaining sedated state, a synchronized biphasic cardioversion using 150 J was performed with congregational of sinus mechanism. There was no immediate complications.
[2022-11-03] MEDS ORDERED: SODIUM CHLORIDE 0.9% 1,000 ML IV SCH (10:45)
[2022-11-03 11:28] VITALS: RESP 18
[2022-11-03 11:57] VITALS: BP 115/78; PULSE 58
[2022-11-03] MEDS ORDERED: RIVAROXABAN 20 MG TAB PO SCH (18:30)
[2022-11-03] MEDS ORDERED: lisinopriL 20 MG TAB PO SCH (21:00)
[2022-11-03] MEDS ORDERED: ATORVASTATIN 20 MG TAB PO SCH (21:00)
[2022-11-03] MEDS ORDERED: amLODIPine 5 MG TAB PO SCH (21:00)
[2022-11-04] MEDS ORDERED: LISINOPRIL-HCTZ 20-12.5 MG 1 EACH TAB PO SCH (09:00)
== END 2022-11-03 12:00 | disposition home or self-care (01) ==
LOC: OR 08:42
PROVIDERS: ATTEND Internal Medicine Interventional Cardiology
DX: I48.11 Longstanding persistent atrial fibrillation (principal); I07.1 Rheumatic tricuspid insufficiency; I10 Essential (primary) hypertension; E78.2 Mixed hyperlipidemia; I25.10 Atherosclerotic heart disease of native coronary artery without angina pectoris; G47.33 Obstructive sleep apnea (adult) (pediatric); Z79.01 Long term (current) use of anticoagulants
CPT/HCPCS: 93312; 93320; 93325; 92960; J2704

== ENCOUNTER 2023-11-20 14:00 | Emergency (ER) | payer MEDICARE ==
--- NOTE | 2023-11-20 14:08 | ED ---
Chest Pain HPI - General Stated Complaint: Chest Pain Time Seen by Provider: 11/20/23 14:03 Source: RN notes reviewed, old records reviewed Mode of arrival: ambulatory Limitations: no limitations - History of Present Illness Initial Comments: This is a 73-year-old male to the ER for evaluation of chest pain today. Seen atrial fibrillation on his monitor at home, chest pain and chest pressure currently with recent change in medications, patient is on blood thinners. No travel history or sick contacts no fever cough or congestion. MD Complaint: chest pain, other (Abnormal heart rate) -: days(s) Onset: during rest, during exertion Pain Location: substernal Pain Radiation: none Severity: moderate Severity scale (1-10): 4 Quality: tightness, aching Consistency: intermittent Improves With: nothing Worsens With: nothing Anginal Symptoms: sense of impending doom Other Symptoms: palpitations Treatments Prior to Arrival: none - Related Data Home Medications Medication Instructions Recorded Confirmed Simvastatin [Zocor] 40 mg PO HS 09/13/14 10/29/22 Rivaroxaban [Xarelto] 20 mg PO PC-SUPPER 06/22/19 10/29/22 amLODIPine [Norvasc] 5 mg PO HS 06/29/19 10/29/22 Acetaminophen [Tylenol Extra 1,000 mg PO Q6HR PRN 08/05/21 10/29/22 Strength] Lisinopril-Hctz 20-12.5 mg 1 tab PO DAILY 11/18/21 10/29/22 [Zestoretic 20-12.5] Multivitamins, Thera [Multivitamin 1 tab PO DAILY 11/18/21 10/29/22 (formulary)] lisinopriL [Zestril] 20 mg PO HS 11/18/21 10/29/22 Ascorbic Acid [Vitamin C] 2,000 mg PO DAILY 10/29/22 10/29/22 Cholecalciferol [Vitamin D3 (25 25 mcg PO DAILY 10/29/22 10/29/22 Mcg = 1000 Iu)] Allergies Allergy/AdvReac Type Severity Reaction Status Date / Time morphine AdvReac Severe Nausea & Verified 11/20/23 14:10 Vomiting Review of Systems ROS Statement: Those systems with pertinent positive or pertinent negative responses have been documented in the HPI. ROS Other: All systems not noted in ROS Statement are negative. EKG Findings - EKG Comments: EKG Findings:: EKG sinus bradycardia 55 MI 192 QRS 93 QTc 415 - EKG Results: EKG: interpreted by RACHELD EKG shows: bradycardia, sinus rhythm, atrial fibrillation (History of) Past Medical History Past Medical History: Atrial Fibrillation, Cancer, Chest Pain / Angina, GERD/Reflux, Hearing Disorder / Deafness, Hyperlipidemia, Hypertension, Musculoskeletal Disorder, Osteoarthritis (OA), Sleep Apnea/CPAP/BIPAP Additional Past Medical History / Comment(s): Hx prostate Cancer-no chemo or radiation, Skin Cancer, heart murmur, hearing aids. Arthritis in back. sleep apnea, no cpap told not needed, scheduled for take home sleep apnea test 11/02/22. recent pain injection in the back. recent fall due to a fib per pt's . seen in ER 10/25/[address] of brain neg. Cxr clear History of Any Multi-Drug Resistant Organisms: None Reported Past Surgical History: Ablation Additional Past Surgical History / Comment(s): Back fusion w/ bone. Prostatectomy, Bilat rotator cuff, Exc Cysts from neck & tail bone, Circumcision age 40. Colonoscopy, benign poly; valentina Cataracts; cardioversion 06/2019, 11/2020; melanoma removed. Total Rt hip 08/10/21. Past Anesthesia/Blood Transfusion Reactions: No Reported Reaction Smoking Status: Former smoker - Past Family History Sister(s) Family Medical History: Cancer Additional Family Medical History / Comment(s): pancreatic Father Family Medical History: Cancer Additional Family Medical History / Comment(s): prostate and COLON CA Mother Family Medical History: Cancer, Diabetes Mellitus Additional Family Medical History / Comment(s): skin cancer General Exam General appearance: alert, in no apparent distress Head exam: Present: atraumatic, normocephalic, normal inspection Eye exam: Present: normal appearance, PERRL, EOMI. Absent: scleral icterus, conjunctival injection, periorbital swelling ENT exam: Present: normal exam, mucous membranes moist Neck exam: Present: normal inspection. Absent: tenderness, meningismus, lymphadenopathy Respiratory exam: Present: normal lung sounds bilaterally. Absent: respiratory distress, wheezes, rales, rhonchi, stridor Cardiovascular Exam: Present: regular rate, normal rhythm, normal heart sounds. Absent: systolic murmur, diastolic murmur, rubs, gallop, clicks GI/Abdominal exam: Present: soft, normal bowel sounds. Absent: distended, tenderness, guarding, rebound, rigid Extremities exam: Present: normal inspection, full ROM, normal capillary refill. Absent: tenderness, pedal edema, joint swelling, calf tenderness Back exam: Present: normal inspection Neurological exam: Present: alert, oriented X3, CN II-XII intact Psychiatric exam: Present: normal affect, normal mood Skin exam: Present: warm, dry, intact, normal color. Absent: rash Course Vital Signs 11/20/23 11/20/23 11/20/23 14:03 15:25 17:01 Temperature 97.9 F Pulse Rate 58 L 53 L 58 L Respiratory 16 16 18 Rate Blood Pressure 156/78 132/66 138/71 O2 Sat by Pulse 98 97 97 Oximetry - Reevaluation(s) Reevaluation #1: Medical records reviewed Reevaluation #2: Patient symptoms improved here in the ER Reevaluation #3: Patient informed of results and questions answered Reevaluation #4: Was pt. sent in by a medical professional or institution (, PA, ACCOUNTING METHODS ANALYST, urgent care, hospital, or usp...) When possible be specific @ -no Did you speak to anyone other than the patient for history (EMS, parent, family, police, friend...)? What history was obtained from this source @ -no Did you review nursing and triage notes (agree or disagree)? Why? @ -agree Are old charts reviewed (outside hosp., previous admission, EMS record, old EKG, old radiological studies, urgent care reports/EKG's, usp records)? Report findings @ -yes Differential Diagnosis (chest pain, altered mental status, abdominal pain women, abdominal pain men, vaginal bleeding, weakness, fever, dyspnea, syncope, head ache, dizziness, GI bleed, back pain, seizure, CVA, palpatations, mental health, musculoskeletal)? @ -prior EKG interpreted by me (3pts min.). @ -yes X-rays interpreted by me (1pt min.). @ -yes negative for acute disease CT interpreted by me (1pt min.). @ -no U/S interpreted by me (1pt. min.). @ -no What testing was considered but not performed or refused? (CT, X-rays, U/S, labs)? Why? @ -none What meds were considered but not given or refused? Why? @ -none Did you discuss the management of the patient with other professionals (professionals i.e. , PA, ACCOUNTING METHODS ANALYST, lab, RT, psych nurse, social welfare administrator, supervisor telephone answering service, teacher, safety instruction police officer, rehabilitation caseworker)? Give summary @ -no Was smoking cessation discussed for >3mins.? @ -no Was critical care preformed (if so, how long)? @ -yes31 Were there social determinants of health that impacted care today? How? (Homelessness, low income, unemployed, alcoholism, drug addiction, transportation, low edu. Level, literacy, decrease access to med. care, residential, rehab)? @ -none Was there de-escalation of care discussed even if they declined (Discuss DNR or withdrawal of care, Hospice)? DNR status @ -no What co-morbidities impacted this encounter? (DM, HTN, Smoking, COPD, CAD, Cancer, CVA, ARF, Chemo, Hep., AIDS, mental health diagnosis, sleep apnea, morbid obesity)? @ -none Was patient admitted / discharged? Hospital course, mention meds given and route, prescriptions, significant lab abnormalities, going to OR and other pertinent info. @ - 73 male with symptomatic bradycardia atrial fibrillation and chest pain. Patient admitted for cardiology to see Admitted Undiagnosed new problem with uncertain prognosis? @ -no Drug Therapy requiring intensive monitoring for toxicity (Heparin, Nitro, Insulin, Cardizem)? @ -no Were any procedures done? @ -no Diagnosis/symptom? @ -Atrial fibrillation bradycardia symptomatic d Acute, or Chronic, or Acute on Chronic? @ -Acute Uncomplicated (without systemic symptoms) or Complicated (systemic symptoms)? @ -Complicated Side effects of treatment? @ -no Exacerbation, Progression, or Severe Exacerbation? @ -exacerbation Poses a threat to life or bodily function? How? (Chest pain, [place], [place], pneumonia, PE, COPD, DKA, ARF, appy, cholecystitis, CVA, Diverticulitis, Homicidal, Suicidal, threat to staff... and all critical care pts) @ -yes with bradycardia and arrhythmia Reevaluation #5: Differential Chest Pain: Stable Angina, Unstable Angina, STEMI, NSTEMI Aortic Dissection, Pneumothorax, Musculoskeletal, Esophageal Spasm GERD, Cholecystitis, Pancreatitis, Zoster, this is not meant to be an all-inclusive list. - Consultations Consultation #1: spoke with admitting physician who afrees to admit this patient Chest Pain MDM - MDM 73 male with symptomatic bradycardia atrial fibrillation and chest pain. Patient admitted for cardiology to see Critical Care Time Critical Care Time: Yes Total Critical Care Time: 31 Disposition Clinical Impression: Chest pain, Atrial fibrillation, Bradycardia, Symptomatic bradycardia, New onset atrial fibrillation Disposition: HOME SELF-CARE Condition: Good Instructions (If sedation given, give patient instructions): Chest Pain (ED), Heart Palpitations (ED), Bradycardia (ED) Is patient prescribed a controlled substance at d/c from ED?: No Referrals: Raffaele Lemos MD [Primary Care Provider] - 1-2 days Tacos Combs MD [STAFF PHYSICIAN] - 1-2 days Time of Disposition: 16:00
[2023-11-20] MEDS: SODIUM CHLORIDE 0.9% 1,000 ML IV STA (14:24)
[2023-11-20 14:32] LABS: Basophils % (A) 1 %; Eosinophils # (A) 0.1 k/uL (0-0.7); Eosinophils % (A) 1 %; HCT 43.2 % (39.0-53.0); Lymphocytes # (A) 1.6 k/uL (1.0-4.8); Lymphocytes % (A) 26 %; MCH 32.3 pg (25.0-35.0); MCHC 34.7 g/dL (31.0-37.0); Mean Platelet Volume 8.3; Monocytes # (A) 0.4 k/uL (0-1.0); Monocytes % (A) 7 %; Neutrophils # (A) 3.9 k/uL (1.3-7.7); Neutrophils % (A) 63 %; Platelet Count 132 k/uL (150-450); RBC 4.65 m/uL (4.30-5.90); RDW 12.1 % (11.5-15.5); WBC 6.2 k/uL (3.8-10.6)
[2023-11-20 14:35] LABS: ALT 21 U/L (4-49); AST 37 U/L (17-59); African American GFR (CKD) 83 (>60 ml/min/1.73 sqM); Albumin 3.8 g/dL (3.5-5.0); Alkaline Phosphatase 68 U/L (38-126); Anion Gap 7 mmol/L; Blood Urea Nitrogen 21 mg/dL (9-20); Calcium 8.5 mg/dL (8.4-10.2); Carbon Dioxide 26 mmol/L (22-30); Chloride 98 mmol/L (98-107); Glucose 100 mg/dL (74-99); Lipase 77 U/L (23-300); Magnesium 2.1 mg/dL (1.6-2.3); Non-African American GFR(CKD) 72 (>60 ml/min/1.73 sqM); Potassium 3.9 mmol/L (3.5-5.1); Sodium 131 mmol/L (137-145); Total Bilirubin 1.4 mg/dL (0.2-1.3); Total Protein 6.5 g/dL (6.3-8.2)
[2023-11-20 14:39] LABS: INR 1.1 (<1.2); Prothrombin Time 11.7 sec (10.0-12.5)
[2023-11-20 14:43] LABS: NT-Pro-B-Type Natriuretic Pept 91 pg/mL
[2023-11-20 14:51] VITALS: TEMP 97.9
--- NOTE | 2023-11-20 14:51 | XR ---
EXAMINATION TYPE: XR chest 2V DATE OF EXAM: 11/20/2023 2:41 PM CLINICAL INDICATION:Male, 73 years old with history of Chest Pain; [facility] COMPARISON: Chest radiographs from 10/25/2022 TECHNIQUE: XR chest 2V Frontal and lateral views of the chest. FINDINGS: Lungs/Pleura: There is no evidence of pleural effusion, focal consolidation, or pneumothorax. Pulmonary vascularity: Unremarkable. Heart/mediastinum: Cardiomediastinal silhouette is unremarkable. Musculoskeletal: No acute osseous pathology. IMPRESSION: No acute cardiopulmonary disease/process.
[2023-11-20 17:18] VITALS: BP 138/71; PULSE 58; RESP 18
== END 2023-11-20 17:03 | disposition home or self-care (01) ==
LOC: EC 14:00
DX: I48.91 Unspecified atrial fibrillation (principal); R00.1 Bradycardia, unspecified; Z88.5 Allergy status to narcotic agent; Z87.891 Personal history of nicotine dependence
CPT/HCPCS: 36415; 71046; 80053; 83690; 83735; 83880; 84484; 85025; 85610; 85730; 93005; 96360; 96361; 99291

== ENCOUNTER → 2024-01-06 | Outpatient (CLI) | payer MEDICARE ==
[2024-01-06 11:08] LABS: INR 1.1 (<1.2); Prothrombin Time 11.5 sec (10.0-12.5)
[2024-01-06 15:41] LABS: ALT 18 U/L (10-49); AST 22 U/L (14-35); Albumin 4.3 g/dL (3.8-4.9); Albumin/Globulin Ratio 2.05 Ratio (1.60-3.17); Alkaline Phosphatase 63 U/L (41-126); BUN/Creat Ratio 18.12 Ratio (12.00-20.00); Blood Urea Nitrogen 14.5 mg/dL (9.0-27.0); Calcium 9.4 mg/dL (8.7-10.3); Chloride 104 mmol/L (96-109); Globulin 2.1 g/dL (1.6-3.3); Glucose 97 mg/dL (70-110); Potassium 4.4 mmol/L (3.5-5.5); Sodium 141 mmol/L (135-145); Total Bilirubin 0.6 mg/dL (0.3-1.2); Total Protein 6.4 g/dL (6.2-8.2)
[2024-01-06 16:37] LABS: HCT 39.8 % (39.6-50.0); HGB 13.8 g/dL (13.0-17.0); MCH 31.7 pg (27.0-32.0); MCHC 34.7 g/dL (32.0-37.0); MCV 91.5 FL (80.0-97.0); Mean Platelet Volume 11.3 FL (9.5-12.2); NRBC Per 100 WBC 0 X 10*3/uL (0.00-0.01); Platelet Count 160 X 10*3/uL (140-440); RBC 4.35 X 10*6/uL (4.40-5.60); RDW 11.8 % (11.5-14.5); WBC 4.68 X 10*3/uL (4.50-10.00)
== END | disposition home or self-care (01) ==
LOC: LABPAT 09:41
PROVIDERS: ATTEND Orthopaedic Surgery
DX: Z01.818 Encounter for other preprocedural examination (principal); I10 Essential (primary) hypertension; M16.12 Unilateral primary osteoarthritis, left hip; E78.00 Pure hypercholesterolemia, unspecified; Z22.322 Carrier or suspected carrier of Methicillin resistant Staphylococcus aureus
CPT/HCPCS: 36415; 80053; 85027; 85610; 85730; 86850; 86900; 86901; 87070; 93005

== ENCOUNTER 2024-01-17 05:32 | Day surgery (SDC) | payer MEDICARE ==
[~2024-01-17 05:32] MED LIST changes: -ACETAMINOPHEN TAB 500 MG TAB PO PRN; -GABAPENTIN 300 MG CAP PO PRN; -MELOXICAM 7.5 MG TAB PO PRN; +TRANEXAMIC 1,000 MG/100ML-NACL 1,000 MG in SALINE 1 100ML.BAG IVPB PRN; -TRANEXAMIC ACID 1,000 MG in SODIUM CHLORIDE 0.9% 100 ML IVPB PRN
[2024-01-17] MEDS ORDERED: MIDAZOLAM 2 MG/2 ML VIAL IV PRN (05:47)
[2024-01-17] MEDS ORDERED: fentaNYL (PF) 50 MCG/ML 2 ML AMP IVP PRN (05:47)
[2024-01-17] MEDS: LACTATED RINGERS 1,000 ML IV SCH (06:08)
[2024-01-17] MEDS: ACETAMINOPHEN TAB 500 MG TAB PO PRN (06:08)
[2024-01-17] MEDS: MELOXICAM 7.5 MG TAB PO PRN (06:08)
[2024-01-17] MEDS: GABAPENTIN 300 MG CAP PO PRN (06:08)
[2024-01-17] MEDS: LIDOCAINE 1% (10MG/ML) FOR IV START INTRADERMA PRN (06:08)
[2024-01-17] MEDS: DEXAMETHASONE SOD PHOSPHATE 4 MG/ML 1 ML VIAL IV ONE (06:09)
[2024-01-17] MEDS: ONDANSETRON 4 MG/2 ML VIAL IVP ONE (06:09)
[2024-01-17] MEDS: IV FLUID CONTINUATION 1,000 ML IV ONE ×2 (06:10→10:52)
[2024-01-17] MEDS: MIDAZOLAM 2 MG/2 ML VIAL IVP ONE (06:26)
[2024-01-17] MEDS ORDERED: fentaNYL (PF) 50 MCG/ML 2 ML AMP ONE (06:55)
[2024-01-17] MEDS ORDERED: NEOSTIGMINE 1 MG/ML 10 ML VIAL ONE (06:55)
[2024-01-17] MEDS ORDERED: TRANEXAMIC 1,000 MG/100ML-NACL PREMIX BAG ONE (06:55)
[2024-01-17] MEDS ORDERED: DEXAMETHASONE SOD PHOSPHATE 4 MG/ML 1 ML VIAL ONE (06:55)
[2024-01-17] MEDS ORDERED: MIDAZOLAM 2 MG/2 ML VIAL ONE (06:55)
[2024-01-17] MEDS ORDERED: ROCURONIUM 10 MG/ML (5 ML VIAL) IV ONE (06:55)
[2024-01-17] MEDS ORDERED: GLYCOPYRROLATE 0.2 MG/ML 2 ML VIAL ONE (06:55)
[2024-01-17] MEDS ORDERED: ePHEDrine 50 MG/ML 1 ML VIAL ONE (06:55)
[2024-01-17] MEDS ORDERED: PROPOFOL 10 MG/ML 20 ML VIAL IV ONE (06:55)
[2024-01-17] MEDS ORDERED: ROPIVACAINE 5 MG/ML 30 ML VIAL ONE (06:55)
[2024-01-17] MEDS ORDERED: SUCCINYLCHOLINE CHLORIDE 200 MG/10 ML VIAL IV ONE (06:55)
[2024-01-17] MEDS: ceFAZolin 1,000 MG in SODIUM CHLORIDE 0.9% 1,000 ML IRRIGATION ONE (07:00)
--- NOTE | 2024-01-17 07:25 | P.ANPRN ---
Procedure Note - Anesthesia - Nerve Block Performed Left Adis Single Time Out Performed: Yes Date of Procedure: 01/17/24 Procedure Start Time: : Procedure Stop Time: : Location of Patient: PreOp Indication: Acute Post-Operative Pain, Analgesia, Requested by Surgeon Sedation Type: Sedate with meaningful contact maintained Preparation: Sterile Prep Position: Supine Catheter: None Needle Types: Pajunk Needle Gauge: 21 Ultrasound used to visualize needle placement: Yes Ultrasound used to observe medication spread: Yes Injectate: 0.5% Ropivacaine (see comment for volume) (Ropiv 20ml+decadron 4mg) Blood Aspirated: No Pain Paresthesia on Injection Noted: No Resistance on Injection: Normal Image Stored and Saved: Yes Events: Uneventful and Well Tolerated
[2024-01-17] MEDS: ROPIVACAINE 5 MG/ML 30 ML VIAL MISCELLANE ONE ×2 (07:26→08:02)
--- NOTE | 2024-01-17 08:09 | P.OP ---
Date of Procedure: 01/17/24 Preoperative Diagnosis: Severe osteoarthritis left hip Postoperative Diagnosis: Severe osteoarthritis left hip Procedure(s) Performed: Left total hip arthroplasty with a direct anterior approach Implants: [employer] Polarstem standard size 3 with a collar [employer] R3, 3 hole hemispherical acetabular shell, 52 mm [employer]hew Reflection 6.5 mm cancellus screw, 20 mm 2 [employer]hew R3, XLPE 20 acetabular liner [employer]hew Oxinium femoral head 36 mm, +0 All components were press-fit. The articulation is Oxinium on polyethylene. Anesthesia: GETA Surgeon: Konrad Ochoa Purchasing/Receiving #1: Phoebe Raya Estimated Blood Loss (ml): 350 Pathology: none sent Condition: stable Disposition: PACU Indications for Procedure: After failure of conservative treatment we discussed the surgical and nonsurgica l treatment options at length. Patient wishes to proceed with a total hip arthroplasty with a direct anterior approach. Complications specific to this procedure were discussed at length, including but not limited to infection, leg length discrepancy, dislocation, nerve injury, and fracture. Covid-19 was also discussed at length with the patient, and they are aware of the current policies and procedures. The patient was given the option of delaying surgery, but they elect to proceed knowing these risks. Patient is aware of all these complications and informed consent was obtained Operative Findings: The operative findings are consistent with severe osteoarthritis of the left hip Description of Procedure: The patient was seen and evaluated in the preoperative area and the consent was reviewed. The operative site was marked with a skin marker. The patient verified the procedure and operative site. A DWAYNE block was placed by anesthesia in the preoperative area. The patient was then brought to the operating room and given preoperative antibiotics intravenously. 1 g of Tranexamic acid was also given intravenously. A general anesthetic was administered by the anesthesia department. The patient was then placed on the [place] table with the bony prominences well-padded. The hip area was then prepped with a ChloraPrep solution and draped in the usual sterile fashion. A universal timeout was then performed, which confirmed the patient's name, surgical site, ALLERGIES, and procedure being performed on the consent. Next the incision site was located at 1 cm distal and 4 cm lateral to the anterior superior iliac spine. The skin and subcutaneous tissues were sharply incised. Incision was carefully dissected down to the fascia overlying the tensor fascia naomy muscle. This fascia was then incised in line with the muscle fibers. Care was taken to stay laterally in order to avoid injuring the lateral femoral cut aneous nerve. Next, using blunt finger dissection, the tensor fascia naomy muscle was dissected off its investing fascia. The muscle was then carefully retracted laterally with a cobra retractor over the lateral neck of the femur. Next, the circumflex vessels were identified and cauterized using the Aquamantis device. The anterior hip capsule was then exposed. The capsule was then opened and an inverted T fashion. The retractors were then placed intracapsularly. The retractors were maintained intracapsular throughout the procedure. The proximal femur was then visualized. Fluoroscopic x-rays were then taken in order to evaluate the preoperative leg lengths. A small amount of traction was placed on the leg. The femoral neck was then osteotomized at the appropriate level above the lesser trochanter. A small wedge of bone was then removed from the remaining femoral head. Next, using a corkscrew the femoral head was removed from the acetabulum. On gross visual inspection, the femoral head had complete loss of articular cartilage and multiple periarticular osteophytes. The femoral head was then measured. Attention was then turned to the acetabulum. The acetabulum was exposed and any remaining labrum was excised. Sequential reaming of the acetabulum was performed using fluoroscopic guidance until there was a good bed of bleeding cancellus bone. When the appropriate size was reached, a trial was then placed. The position and fit of the trial was checked with fluoroscopy. The trial was then removed. Then, using fluoroscopic guidance, the final implant was impacted at 20 of anteversion and 40 of abduction, and fully seated in the acetabulum. 2 screws were then placed in the acetabulum. Again fluoroscopy was used to check position of the screws. Next, the liner was then impacted, with a 20 elevated liner located in the anterior superior quadrant. Component locking was confirmed. Attention was then directed to the femur. With the aid of the [place] table, the femur was externally rotated to approximately 130, extended, and adducted under the opposite leg. A side hook was then placed under the proximal femur, and the side hook elevator was used to elevate the proximal femur while releasing the capsule. Retractors were then placed. A capsular release was performed, as well as a release of the conjoined tendon, which afforded excellent visual ization of the proximal femur. Next, a box osteotome was used to lateralize the proximal femur. A hand crown pouncer was then used to locate the femoral canal. Sequential broaching was then performed with appropriate size which afforded excellent fixation in the proximal femur. A trial was then placed with appropriate head and neck, and the hip was gently reduced with the aid of the [place] table. Fluoroscopy was then used to check position of the components, as well as to evaluate the leg lengths and offset. The leg lengths and offset were measured as closely as possible to ensure stability of the hip. The hip was then gently dislocated and the trials were then removed. Final implants were then impacted and the hip was again reduced. Final fluoroscopic x-rays confirmed that the components were in anatomic position. The leg lengths and offset were measured and were found to coincide with the trial measurements. The hip was also taken through range of motion, and found to be stable. The hip was then copiously irrigated with antibiotic solution with pulsatile lavage. The hip was then irrigated with Irrisept solution. The soft tissues were then injected with a ropivacaine solution. A second dose of 1 g of Tranexamic acid was also given intravenously. The fascia was then closed with 2-0 strata fix suture. The subcutaneous tissue was closed with 3-0 Vicryl. The subcuticular tissue was closed with 3-0 strata fix suture. The skin was then closed with Exofin skin glue. After the glue and dried, and Optifoam silver impregnated dressing was applied. The patient was then transferred to the recovery room in stable condition. The general surgery physician assistant MARY Bond was required due to the complexity of surgery, and the need for skilled surgical product sales consultant for positioning, draping, exposure, retraction, and closure of the wound.
[2024-01-17] MEDS ORDERED: HYDROmorphone 0.5 MG/0.5 ML SYRINGE IVP PRN ×3 (08:29)
[2024-01-17] MEDS ORDERED: NALOXONE 0.4 MG/ML 1 ML VIAL IV PRN (08:29)
[2024-01-17] MEDS ORDERED: MAGNESIUM HYDROXIDE 2,400 MG/30 ML CUP PO PRN (08:29)
[2024-01-17] MEDS ORDERED: ONDANSETRON 4 MG/2 ML VIAL IVP PRN (08:29)
[2024-01-17] MEDS ORDERED: HYDROcodone/APAP 7.5-325MG 1 EACH TAB PO PRN (08:31)
[2024-01-17] MEDS: HYDROmorphone 0.5 MG/0.5 ML SYRINGE IVP PRN (08:41)
--- NOTE | 2024-01-17 08:53 | XR ---
EXAMINATION TYPE: XR Hip Limited LT, FL guidance operating room DATE OF EXAM: 01/17/2024 Comparison: None Clinical History: 73-year-old male LEFT HIP OA Findings: Fl time- 25.4 sec DAP- 1.5069 Gycm2 Left hip total arthroplasty with Dr Ochoa 3 images saved
--- NOTE | 2024-01-17 09:58 | XR ---
EXAMINATION TYPE: XR Hip Limited AP LT DATE OF EXAM: 01/17/2024 Comparison: None Clinical History: 73-year-old male Status post hip surgery, assess surgical alignment Findings: Bilateral total hip arthroplasties noted. Newly placed left hip arthroplasty. Both acetabular cup and femoral stem components well seated without periprosthetic fracture. Some soft tissue air related to recent operation. Alignment grossly anatomic. Impression: Uncomplicated postsurgical appearance to the left total hip arthroplasty.
[2024-01-17] MEDS: SODIUM CHLORIDE 0.9% 1,000 ML IV SCH (10:51)
[2024-01-17] MEDS: HYDROcodone/APAP 7.5-325MG 1 EACH TAB PO PRN (12:48)
[2024-01-17] MEDS: SENNOSIDES-DOCUSATE SODIUM 1 EACH TAB PO SCH (21:49)
[2024-01-18 08:43] LABS: Basophils # (A) 0.01 X 10*3/uL (0.00-0.10); Basophils % (A) 0.1 %; Eosinophils # (A) 0 X 10*3/uL (0.04-0.35); Eosinophils % (A) 0 %; HCT 34.5 % (39.6-50.0); HGB 11.8 g/dL (13.0-17.0); Lymphocytes # (A) 0.97 X 10*3/uL (0.90-5.00); Lymphocytes % (A) 8.8 %; MCH 31.4 pg (27.0-32.0); MCHC 34.2 g/dL (32.0-37.0); MCV 91.8 FL (80.0-97.0); Mean Platelet Volume 11.4 FL (9.5-12.2); Monocytes # (A) 0.96 X 10*3/uL (0.20-1.00); Monocytes % (A) 8.7 %; NRBC Per 100 WBC 0 X 10*3/uL (0.00-0.01); Neutrophils # (A) 9.09 X 10*3/uL (1.80-7.70); Platelet Count 156 X 10*3/uL (140-440); RBC 3.76 X 10*6/uL (4.40-5.60); RDW 11.8 % (11.5-14.5); WBC 11.07 X 10*3/uL (4.50-10.00)
[2024-01-18 08:49] VITALS: BP 135/62; PULSE 55; RESP 16; TEMP 98.1
--- NOTE | 2024-01-18 09:43 | P.DS ---
Providers Expected date of discharge: 01/18/24 Attending physician: Konrad Ochoa Consults: 01/17/24 08:29 Consult Physician Routine Consulting Provider: Davida Armendariz Consult Reason/Comments: medical management Do you want consulting provider notified?: Yes Primary care physician: Raffaele Lemos - Discharge Diagnosis(es) (1) Osteoarthritis of left hip Current Visit: Yes Status: Acute (2) S/P total hip arthroplasty Current Visit: Yes Status: Acute Hospital Course: This is a 73-year-old male with known history of degenerative arthritis of the left hip. The patient presented for evaluation as an outpatient. After discussion and consideration patient elects to proceed with total hip arthroplasty. The patient is seen preoperatively by Dr. Ochoa and medically cleared for surgery by their primary care physician. Patient is admitted to [facility] on 01/17/2024 for total hip arthroplasty. The procedure is performed without complication or sequelae. The patient is doing well postoperatively. Labs and vital signs are stable on day of discharge. On day of discharge patient's hip incision is healing well. There is minimal erythema. There is no drainage noted at this time. There is minimal soft tissue swelling to the hip and thigh. Patient has full foot and ankle motion without difficulty or pain. Calf is soft and nontender to palpation. Neurovascular status to the left lower extremity is intact. Patient is discharged home in good condition. Please see med rec for accurate list of home medications. Plan - Discharge Summary Discharge Rx Participant: No New Discharge Prescriptions: New Sennosides [Senokot] 2 tab PO DAILY PRN #60 tablet PRN Reason: Constipation HYDROcodone/APAP 7.5-325MG [Franklin 7.5-325] 1 - 2 tab PO Q6H PRN #32 tab PRN Reason: Pain No Action Simvastatin [Zocor] 40 mg PO HS Rivaroxaban [Xarelto] 20 mg PO PC-SUPPER amLODIPine [Norvasc] 5 mg PO HS Lisinopril-Hctz 20-12.5 mg [Zestoretic 20-12.5] 1 tab PO DAILY lisinopriL [Zestril] 20 mg PO HS Ascorbic Acid [Vitamin C] 2,000 mg PO DAILY Acetaminophen [Tylenol Extra Strength] 1,000 mg PO Q6HR PRN PRN Reason: Pain Multivitamins, Thera [Multivitamin (formulary)] 1 tab PO DAILY Cholecalciferol [Vitamin D3 (25 Mcg = 1000 Iu)] 25 mcg PO DAILY Discharge Medication List Simvastatin [Zocor] 40 mg PO HS 09/13/14 [History] Rivaroxaban [Xarelto] 20 mg PO PC-SUPPER 06/22/19 [History] amLODIPine [Norvasc] 5 mg PO HS 06/29/19 [History] Acetaminophen [Tylenol Extra Strength] 1,000 mg PO Q6HR PRN 08/05/21 [History] Lisinopril-Hctz 20-12.5 mg [Zestoretic 20-12.5] 1 tab PO DAILY 11/18/21 [History] Multivitamins, Thera [Multivitamin (formulary)] 1 tab PO DAILY 11/18/21 [History] lisinopriL [Zestril] 20 mg PO HS 11/18/21 [History] Ascorbic Acid [Vitamin C] 2,000 mg PO DAILY 10/29/22 [History] Cholecalciferol [Vitamin D3 (25 Mcg = 1000 Iu)] 25 mcg PO DAILY 10/29/22 [History] HYDROcodone/APAP 7.5-325MG [Franklin 7.5-325] 1 - 2 tab PO Q6H PRN #32 tab 01/17/24 [Rx] Sennosides [Senokot] 2 tab PO DAILY PRN #60 tablet 01/17/24 [Rx] Follow up Appointment(s)/Referral(s): Konrad Ochoa DO [Doctor of Osteopathic Medicine] - 2 Weeks Activity/Diet/Wound Care/Special Instructions: Weightbearing as tolerated with walker. Leave dressing intact. Dressing may be removed by home care nurse or by patient in 7 days. Then change dressing twice daily until follow up. May shower with initial dressing intact and after removal. If dressing become saturated, please remove. Please resume Xarelto. Recommend use of compression stockings daily until follow up to help prevent swelling and blood clots. May remove at night before sleeping. Please follow-up with [facility] in 2 weeks and call with any questions or concerns, . Discharge Disposition: HOME WITH HOME HEALTH SERVICES
[2024-01-18] MEDS: CHOLECALCIFEROL 25 MCG (1000 IU) TABLET PO SCH (09:48)
[2024-01-18] MEDS: ASCORBIC ACID 500 MG TAB PO SCH (09:48)
[2024-01-18] MEDS: MULTIVITAMINS, THERA 1 EACH TAB PO SCH (09:49)
--- NOTE | 2024-01-18 13:14 | P.CONS ---
History of Present Illness - Reason for Consult Consult date: 01/18/24 - Chief Complaint Medical Management - History of Present Illness Patient is a 73-year-old male with history of atrial fibrillation anticoagulant with Xarelto, chest pain, acid reflux, hypertension, hyperlipidemia, sleep apnea, history of prostate cancer. Patient also has history of cardiac ablation for his A-fib he is a former smoker. Patient comes into the hospital for a scheduled left hip arthroplasty. He is evaluated today postoperative day #1 and doing well he is sitting up in the chair with family at the bedside. He is reporting minimal pain to his left hip surgical incision no numbness or tingling down the leg. He does not have any shortness of breath or chest discomfort no nausea vomiting or diarrhea. Patient is maintained on lisinopril and lisinopril hydrochlorothiazide combination outpatient and his blood pressure is running in the 120s to 130s has not been resumed this hospital stay and did recommend to patient that he hold this medication for couple days on discharge I would recommend to monitor his blood pressure before taking this to avoid any postoperative hypotension. Patient is agreeable with this plan. He has been seen by physical therapy and has been cleared for discharge home with home physical therapy. Medically he is stable and he can be cleared this well. REVIEW OF SYSTEMS: CONSTITUTIONAL: No fever, no malaise, no fatigue. HEENT: No recent visual problems or hearing problems. Denied any sore throat. CARDIOVASCULAR: No chest pain, orthopnea, PND, no palpitations, no syncope. PULMONARY: No shortness of breath, no cough, no hemoptysis. GASTROINTESTINAL: No diarrhea, no nausea, no vomiting, no abdominal pain. NEUROLOGICAL: No headaches, no weakness, no numbness. HEMATOLOGICAL: Denies any bleeding or petechiae. GENITOURINARY: Denies any burning micturition, frequency, or urgency. MUSCULOSKELETAL/RHEUMATOLOGICAL: Denies any joint pain, swelling, or any muscle pain. ENDOCRINE: Denies any polyuria or polydipsia. The rest of the 14-point review of systems is negative. PHYSICAL EXAMINATION: GENERAL: The patient is alert and oriented x3, not in any acute distress. Well developed, well nourished. HEENT: Pupils are round and equally reacting to light. EOMI. No scleral icterus. No conjunctival pallor. Normocephalic, atraumatic. No pharyngeal erythema. No thyromegaly. CARDIOVASCULAR: S1 and S2 present. No murmurs, rubs, or gallops. PULMONARY: Chest is clear to auscultation, no wheezing or crackles. ABDOMEN: Soft, nontender, nondistended, normoactive bowel sounds. No palpable organomegaly. MUSCULOSKELETAL: No joint swelling or deformity. EXTREMITIES: No cyanosis, clubbing, or pedal edema. NEUROLOGICAL: Gross neurological examination did not reveal any focal deficits. SKIN: No rashes. Assessment and plan Scheduled left hip arthroplasty postoperative day #1 patient is doing well and will continue on Xarelto for anticoagulation. History of atrial fibrillation paroxysmal with prior cardioversion and ablation anticoagulant with Xarelto on an outpatient basis History of prostate cancer with prior prostatectomy History of hypertension maintained on lisinopril and lisinopril hydrochlorothiazide combination as mentioned above in HPI recommending to hold this medication for the next 2 days postoperatively to avoid any hypotension History of hyperlipidemia resumed on statin therapy History of gastroesophageal reflux disease History of sleep apnea History of smoking GI prophylaxis DVT prophylaxis as mentioned anticoagulated with Xarelto Full code Patient is cleared medically for discharge home he should continue with his incentive spirometer 10 times an hour while awake. Patient will continue on his home dose of Xarelto. Thank you kindly for this consultation. The impression and plan of care has been dictated by Michelle Argueta, Nurse Practitioner as directed. Dr. Keyana MD I have performed a history and physical examination and medical decision making of this patient, discussed the same with the dictator, and agree with the dictators assessment and plan as written, documented as a scribe. Based on total visit time, I have performed more than 50% of this visit. Past Medical History Past Medical History: Atrial Fibrillation, Cancer, Chest Pain / Angina, GERD/Reflux, Hearing Disorder / Deafness, Hyperlipidemia, Hypertension, Musculoskeletal Disorder, Osteoarthritis (OA), Prostate Disorder, Sleep Apnea/CPAP/BIPAP Additional Past Medical History / Comment(s): Hx prostate Cancer-no chemo or radiation, Skin Cancer, heart murmur, hearing aids. Arthritis in back. sleep apnea, no cpap told not needed, scheduled for take home sleep apnea test 11/02/22. recent pain injection in the back. recent fall due to a fib per pt's . seen in ER 10/25/[address] of brain neg. Cxr clear History of Any Multi-Drug Resistant Organisms: None Reported Past Surgical History: Back Surgery, Cardiac Ablation, Joint Replacement, Prostate Surgery Additional Past Surgical History / Comment(s): Back fusion w/ bone. Prostatectomy, Bilat rotator cuff, Exc Cysts from neck & tail bone, Circumcision age 40. Colonoscopy, benign poly; valent[place] Cataracts; cardioversion x6 melanoma removed. Total Rt hip 08/10/21. Past Anesthesia/Blood Transfusion Reactions: No Reported Reaction Past Psychological History: No Psychological Hx Reported Additional Psychological History / Comment(s): . Smoking Status: Former smoker Past Alcohol Use History: None Reported Additional Past Alcohol Use History / Comment(s): started smoking age 14, quit 1988, smoked 1 ppd Past Drug Use History: None Reported - Past Family History Sister(s) Family Medical History: Cancer Additional Family Medical History / Comment(s): pancreatic Father Family Medical History: Cancer Additional Family Medical History / Comment(s): prostate and COLON CA Mother Family Medical History: Cancer, Diabetes Mellitus Additional Family Medical History / Comment(s): skin cancer Medications and Allergies Home Medications Medication Instructions Recorded Confirmed Type Simvastatin [Zocor] 40 mg PO HS 09/13/14 01/12/24 History Rivaroxaban [Xarelto] 20 mg PO PC-SUPPER 06/22/19 01/12/24 History amLODIPine [Norvasc] 5 mg PO HS 06/29/19 01/12/24 History Acetaminophen [Tylenol Extra 1,000 mg PO Q6HR PRN 08/05/21 01/12/24 History Strength] Lisinopril-Hctz 20-12.5 mg 1 tab PO DAILY 11/18/21 01/12/24 History [Zestoretic 20-12.5] Multivitamins, Thera [Multivitamin 1 tab PO DAILY 11/18/21 01/12/24 History (formulary)] lisinopriL [Zestril] 20 mg PO HS 11/18/21 01/12/24 History Ascorbic Acid [Vitamin C] 2,000 mg PO DAILY 10/29/22 01/12/24 History Cholecalciferol [Vitamin D3 (25 25 mcg PO DAILY 10/29/22 01/12/24 History Mcg = 1000 Iu)] HYDROcodone/APAP 7.5-325MG [[place] 1 - 2 tab PO Q6H PRN #32 tab 01/17/24 Rx 7.5-325] Sennosides [Senokot] 2 tab PO DAILY PRN #60 tablet 01/17/24 Rx Allergies Allergy/AdvReac Type Severity Reaction Status Date / Time morphine AdvReac Severe Nausea & Verified 01/12/24 12:10 Vomiting Physical Exam Vitals: Vital Signs Temp Pulse Resp BP Pulse Ox 01/18/24 07:55 98.1 F 55 L 16 135/62 97 01/18/24 01:17 97.6 F 49 L 15 129/58 97 01/17/24 20:11 97.7 F 56 L 16 122/67 97 01/17/24 14:00 96.9 F L 49 L 17 138/67 96 01/17/24 12:07 96.8 F L 53 L 17 120/57 95 01/17/24 11:35 45 L 16 127/65 97 01/17/24 11:00 42 L 16 126/63 96 01/17/24 10:30 42 L 16 122/63 97 01/17/24 10:15 43 L 16 120/66 96 01/17/24 10:00 42 L 16 123/62 96 Intake and Output 01/17/24 01/18/24 01/18/24 22:59 06:59 14:59 Intake Total 480 Balance 480 Intake: Oral 480 Other: Voiding Method Toilet # Voids 1 3 3 Results CBC & Chem 7: 01/18/24 03:21 Labs: Abnormal Lab Results - Last 24 Hours (Table) 01/18/24 Range/Units 03:21 WBC 11.07 H (4.50-10.00) X 10*3/uL RBC 3.76 L (4.40-5.60) X 10*6/uL Hgb 11.8 L (13.0-17.0) g/dL Hct 34.5 L (39.6-50.0) % Neutrophils # 9.09 H (1.80-7.70) X 10*3/uL Eosinophils # 0 L (0.04-0.35) X 10*3/uL Assessment and Plan Time with Patient: Less than 30
[2024-01-18] MEDS ORDERED: RIVAROXABAN 20 MG TAB PO SCH (17:30)
[2024-01-18] MEDS ORDERED: ATORVASTATIN 20 MG TAB PO SCH (21:00)
== END 2024-01-18 11:44 | disposition home health service (06) ==
LOC: OR 05:32 → 4SSUR 08:20 → OR 01-18 11:44
PROVIDERS: ATTEND Orthopaedic Surgery
DX: M16.12 Unilateral primary osteoarthritis, left hip (principal); G89.18 Other acute postprocedural pain; I48.0 Paroxysmal atrial fibrillation; I48.11 Longstanding persistent atrial fibrillation; E78.2 Mixed hyperlipidemia; I25.119 Atherosclerotic heart disease of native coronary artery with unspecified angina pectoris; G47.33 Obstructive sleep apnea (adult) (pediatric); K21.9 Gastro-esophageal reflux disease without esophagitis; Z79.899 Other long term (current) drug therapy; I11.9 Hypertensive heart disease without heart failure; Z88.2 Allergy status to sulfonamides; Z88.5 Allergy status to narcotic agent; Z87.891 Personal history of nicotine dependence; Z79.01 Long term (current) use of anticoagulants
CPT/HCPCS: 97162; 97166; 85025; 73501; 27130; 64447; J2250; J1100; J0690 ×2; J2405; J2795; J1170

== ENCOUNTER 2024-07-12 06:23 | Day surgery (SDC) | payer MEDICARE ==
[~2024-07-12 06:23] MED LIST changes: +SODIUM CHLORIDE 0.9% 500 ML 500 ML IV SCH; -TRANEXAMIC 1,000 MG/100ML-NACL 1,000 MG in SALINE 1 100ML.BAG IVPB PRN
[2024-07-12] MEDS ORDERED: LACTATED RINGERS 1,000 ML IV SCH (06:55)
[2024-07-12] MEDS ORDERED: LIDOCAINE 1% (10MG/ML) FOR IV START INTRADERMA PRN (06:55)
[2024-07-12 07:11] VITALS: TEMP 97
[2024-07-12] MEDS: SODIUM CHLORIDE 0.9% 500 ML 500 ML IV ONE (07:25)
[2024-07-12] MEDS ORDERED: PROPOFOL 10 MG/ML 20 ML VIAL IV ONE (07:43)
[2024-07-12] MEDS ORDERED: LIDOCAINE 2% (PF) 20 MG/ML 5 ML VIAL ONE (07:43)
[2024-07-12] MEDS: BENZOCAINE SPRAY 1 EACH MM ONE (07:44)
[2024-07-12 07:54] LABS: African American GFR (CKD) >90 (>60 ml/min/1.73 sqM); Anion Gap 7 mmol/L; Blood Urea Nitrogen 18 mg/dL (9-20); Calcium 8.8 mg/dL (8.4-10.2); Carbon Dioxide 24 mmol/L (22-30); Chloride 104 mmol/L (98-107); Glucose 96 mg/dL (74-99); Non-African American GFR(CKD) 88 (>60 ml/min/1.73 sqM); Potassium 3.9 mmol/L (3.5-5.1); Sodium 135 mmol/L (137-145)
--- NOTE | 2024-07-12 08:04 | P.PCN ---
Date of Procedure: 07/12/24 Description of Procedure: Indication: Atrial fibrillation Procedure Description: After explaining the procedure to the patient, it's risk and complications, blood pressure, heart rate and O2 saturation were monitored. The throat was sprayed with Cetacaine. Patient received sedation per anesthesia department. The probe was introduced into the esophagus without difficulty. Images were obtained. Following that, the probe was removed. There was no immediate complication. Findings: Left atrial size is dilated, left atrial appendage is normal. Left ventricular systolic function is borderline normal with ejection fraction of 50 to 55%. Aortic valve, mitral valve, tricuspid and pulmonic valve are normal. Descending thoracic aorta is normal. Contrast bubble study revealed no shunting across the interatrial septum. No pericardial effusion was noted. Doppler: Pulse wave and color Doppler were obtained, and revealed mild mitral and tricuspid regurgitation there was no shunting across the interatrial septum. Conclusion: 1. Dilated left atrium with normal appearance of the left atrial appendage 2. Normal ventricle size with mild global hypokinesis 3. Mild mitral and tricuspid regurgitation 4. No evidence of shunting across the interatrial septum 5. Normal appearance of the descending thoracic aorta Cardioversion: After performing CORRINA and obtaining sedated state a synchronized biphasic cardioversion using 150 J was performed with taoism of sinus mechanism, there was no immediate complication.
[2024-07-12 08:24] VITALS: RESP 16
[2024-07-12] MEDS ORDERED: LISINOPRIL-HCTZ 20-12.5 MG 1 EACH TAB PO SCH (09:00)
[2024-07-12 09:16] VITALS: BP 104/67; PULSE 54
[2024-07-12] MEDS ORDERED: RIVAROXABAN 20 MG TAB PO SCH (18:30)
[2024-07-12] MEDS ORDERED: NON FORMULARY DRUG (Simvastatin 40 MG Tab) PO SCH (21:00)
[2024-07-12] MEDS ORDERED: lisinopriL 10 MG TAB PO SCH (21:00)
== END 2024-07-12 09:28 | disposition home or self-care (01) ==
LOC: OR 06:23
PROVIDERS: ATTEND Internal Medicine Interventional Cardiology
DX: I48.11 Longstanding persistent atrial fibrillation (principal); I10 Essential (primary) hypertension; I25.119 Atherosclerotic heart disease of native coronary artery with unspecified angina pectoris; E78.2 Mixed hyperlipidemia; I08.1 Rheumatic disorders of both mitral and tricuspid valves; G47.33 Obstructive sleep apnea (adult) (pediatric); K21.9 Gastro-esophageal reflux disease without esophagitis; Z79.01 Long term (current) use of anticoagulants; Z79.899 Other long term (current) drug therapy; Z87.891 Personal history of nicotine dependence; Z85.46 Personal history of malignant neoplasm of prostate; Z88.5 Allergy status to narcotic agent
CPT/HCPCS: 93312; 93320; 93325; 92960; 80048; J2704; J2003

== ENCOUNTER 2024-12-11 10:15 | Day surgery (SDC) | payer MEDICARE ==
[2024-12-10 11:30] VITALS: BMI 32.5
[~2024-12-11 10:15] MED LIST changes: +MIDAZOLAM 2 MG/2 ML VIAL IV PRN; -SODIUM CHLORIDE 0.9% 500 ML 500 ML IV SCH; +fentaNYL (PF) 50 MCG/ML 2 ML AMP IV PRN
[2024-12-11] MEDS: SODIUM CHLORIDE 0.9% 1,000 ML IV SCH (10:37)
[2024-12-11] MEDS: IV FLUID CONTINUATION 1,000 ML IV ONE (10:42)
[2024-12-11 10:46] LABS: Basophils # (A) 0.04 10*3/uL (0.00-0.10); Basophils % (A) 0.7 %; Eosinophils # (A) 0.17 10*3/uL (0.04-0.35); HCT 41.3 % (39.6-50.0); HGB 14.9 g/dL (13.0-17.0); Lymphocytes # (A) 1.61 10*3/uL (0.90-5.00); Lymphocytes % (A) 28.8 %; MCH 32.9 pg (27.0-32.0); MCHC 36.1 g/dL (32.0-37.0); MCV 91.2 fL (80.0-97.0); Mean Platelet Volume 9.7 fL (9.5-12.2); Monocytes % (A) 8.9 %; Neutrophils # (A) 3.26 10*3/uL (1.80-7.70); Neutrophils % (A) 58.4 %; Platelet Count 180 10*3/uL (140-440); RBC 4.53 10*6/uL (4.40-5.60); RDW 12.2 % (11.5-14.5); WBC 5.59 10*3/uL (4.50-10.00)
[2024-12-11 10:59] LABS: African American GFR (CKD) >90 (>60 ml/min/1.73 sqM); Anion Gap 8 mmol/L; Blood Urea Nitrogen 17 mg/dL (9-20); Calcium 9.3 mg/dL (8.4-10.2); Carbon Dioxide 29 mmol/L (22-30); Chloride 100 mmol/L (98-107); Glucose 98 mg/dL (74-99); Non-African American GFR(CKD) 86 (>60 ml/min/1.73 sqM); Potassium 3.9 mmol/L (3.5-5.1); Sodium 137 mmol/L (137-145)
[2024-12-11] MEDS ORDERED: ATROPINE SULFATE 0.1 MG/ML 10ML SYRINGE ONE (11:25)
[2024-12-11] MEDS ORDERED: PROPOFOL 10 MG/ML 20 ML VIAL IV ONE (11:25)
[2024-12-11] MEDS ORDERED: PHENYLEPHRINE 10 MG/ML VIAL ONE (11:25)
[2024-12-11] MEDS ORDERED: GLYCOPYRROLATE 0.2 MG/ML 2 ML VIAL ONE (11:25)
[2024-12-11] MEDS ORDERED: ROCURONIUM 10 MG/ML (5 ML VIAL) IV ONE (11:25)
[2024-12-11] MEDS ORDERED: MIDAZOLAM 2 MG/2 ML VIAL ONE (11:25)
[2024-12-11] MEDS ORDERED: ONDANSETRON 4 MG/2 ML VIAL ONE (11:25)
[2024-12-11] MEDS ORDERED: SUCCINYLCHOLINE CHLORIDE 200 MG/10 ML VIAL IV ONE (11:25)
[2024-12-11] MEDS ORDERED: HEPARIN SODIUM,PORCINE 10,000 UNIT/ML 1 ML VIAL ONE (11:25)
[2024-12-11] MEDS ORDERED: NEOSTIGMINE 1 MG/ML 10 ML VIAL ONE (11:25)
[2024-12-11] MEDS ORDERED: LIDOCAINE 1% INJ 10MG/ML (20 ML MDV) ONE (11:25)
[2024-12-11] MEDS: HEPARIN SOD,PORK IN 0.45% NACL 25,000 UNIT in 0.45% NACL 1 250ML.BAG IV ONE (12:05)
[2024-12-11] MEDS: LIDOCAINE 1% INJ 10MG/ML (20 ML MDV) SQ ONE (12:10)
[2024-12-11] MEDS: HEPARIN SODIUM (1,000 UNIT/ML) 1,000 UNIT in SODIUM CHLORIDE 0.9% 1,000 ML IRRIGATION ONE (12:30)
--- NOTE | 2024-12-11 15:40 | P.HPCAR ---
History of Present Illness This is Dr. Combs dictating an H/P on this patient The patient was interviewed and examined IMPRESSION / ASSESSMENT: Persistent atrial fibrillation, symptomatic with tiredness and fatigue, on Xarelto Intrinsically rate controlled Mild CAD Prior A-fib ablation with PVI and left atrial roof ablation Failed medical treatment thereafter PLAN: Mapping of the left and right atria and A-fib ablation Continue anticoagulation HPI Continues to complain of tiredness and fatigue. He has undergone A-fib ablation almost 3 years back. Subsequently when he recurred he has had 2 electrical cardioversions but he is recurred once again with an organized rhythm Denies any fever chills cough expectoration Denies any angina or syncope ROS: No fever chills or rigors, no cough, phlegm or expectoration, no nausea, vomiting or diarrhea, no hematuria, dysuria, no musculoskeletal complaints, no strokes or seizures, no skin lesions. EXAMINATION: 124/87 mmHg, pulse rate in the 70s-80s, irregular No JVD No lower extremity edema Clear lungs no rhonchi no crackles Heart sounds irregular no murmurs REVIEW OF LABS, ECG & MEDICAL DATA White count 5.6, hematocrit 41.3, platelet count 180,000 Electrolytes normal Physical Exam Vitals: Vital Signs Temp Pulse Resp BP Pulse Ox 12/11/24 15:30 57 L 12 111/68 100 12/11/24 15:21 97 F L 56 L 10 L 106/61 100 12/11/24 10:43 97.7 F 16 124/87 97 Intake and Output 12/11/24 12/11/24 12/11/24 06:59 14:59 22:59 Intake Total 1437.3 Balance 1437.3 Intake: IV 1437.3 Other: Weight 100.6 kg Past Medical History Past Medical History: Atrial Fibrillation, Cancer, Chest Pain / Angina, GERD/Reflux, Hearing Disorder / Deafness, Hyperlipidemia, Hypertension, Musculoskeletal Disorder, Osteoarthritis (OA), Sleep Apnea/CPAP/BIPAP Additional Past Medical History / Comment(s): See Dr Combs's h&p,constipation- requests stool softners, Hx prostate Cancer-no chemo or radiation, Skin Cancer, heart murmur, hearing aids. Arthritis in back. sleep apnea, no cpap told not needed-uses a wedge under pillow for sleeping. History of Any Multi-Drug Resistant Organisms: None Reported Past Surgical History: Cardiac Ablation Additional Past Surgical History / Comment(s): BILATERAL HIP REPLACEMENT LAST 01/17/24. Back fusion w/ bone. Prostatectomy, Bilat rotator cuff, Exc Cysts from neck & tail bone, Circumcision age 40. Colonoscopy, benign poly; valentina Cataracts; cardioversion 06/2019, 11/2020; melanoma removed. Total Rt hip 08/10/21,Cardioversions x7 Past Anesthesia/Blood Transfusion Reactions: No Reported Reaction Additional Past Anesthesia/Blood Transfusion Reaction / Comment(s): no hx blood transfusion Smoking Status: Former smoker - Past Family History Sister(s) Family Medical History: Cancer Additional Family Medical History / Comment(s): pancreatic Father Family Medical History: Cancer Additional Family Medical History / Comment(s): prostate and COLON CA Mother Family Medical History: Cancer, Diabetes Mellitus Additional Family Medical History / Comment(s): skin cancer Physical Examination Vital Signs Temp Pulse Resp BP Pulse Ox 12/11/24 15:30 57 L 12 111/68 100 12/11/24 15:21 97 F L 56 L 10 L 106/61 100 12/11/24 10:43 97.7 F 16 124/87 97 Intake and Output 12/11/24 12/11/24 12/11/24 06:59 14:59 22:59 Intake Total 1437.3 Balance 1437.3 Intake: IV 1437.3 Other: Weight 100.6 kg Results 12/11/24 10:35 12/11/24 10:35 CBC 12/11/24 Range/Units 10:35 WBC 5.59 (4.50-10.00) 10*3/uL RBC 4.53 (4.40-5.60) 10*6/uL Hgb 14.9 (13.0-17.0) g/dL Hct 41.3 (39.6-50.0) % Plt Count 180 (140-440) 10*3/uL Comprehensive Metabolic Panel 12/11/24 Range/Units 10:35 Sodium 137 (137-145) mmol/L Potassium 3.9 (3.5-5.1) mmol/L Chloride 100 (98-107) mmol/L Carbon Dioxide 29 (22-30) mmol/L BUN 17 (9-20) mg/dL Creatinine 0.85 (0.66-1.25) mg/dL Glucose 98 (74-99) mg/dL Calcium 9.3 (8.4-10.2) mg/dL Current Medications Generic Name Dose Route Start Last Admin Trade Name Freq PRN Reason Stop Dose Admin Acetaminophen 650 mg 12/11/24 15:29 Acetaminophen Tab 325 Mg Tab PO Q6HR PRN Mild Pain (Scale 1 to 3) Atorvastatin Calcium 20 mg 12/11/24 21:00 Atorvastatin 20 Mg Tab PO HS RIAZ Fentanyl Citrate 50 mcg 12/11/24 07:30 Fentanyl (Pf) 50 Mcg/Ml 2 Ml Amp IV 12/11/24 23:00 Q3M PRN Phase I - Pain Control Lisinopril/HCTZ 1 each 12/12/24 09:00 Lisinopril-Hctz 20-12.5 Mg 1 Each Tab PO QAM RIAZ Lactated Ringer's 1,000 mls @ 20 mls/hr 12/11/24 07:30 Lactated Ringers IV 01/10/25 07:29 .Q24H RIAZ Sodium Chloride 1,000 mls @ 20 mls/hr 12/11/24 10:45 12/11/24 10:37 Saline 0.9% IV 01/10/25 10:44 20 mls/hr .Q24H RIAZ Administration Acetaminophen 1,000 mg/ IV 100 mls @ 400 mls/hr 12/11/24 15:29 Solution IVPB 12/11/24 15:43 ONCE ONE Lisinopril 10 mg 12/11/24 21:00 Lisinopril 10 Mg Tab PO HS RIAZ Midazolam HCl 2 mg 12/11/24 07:30 Midazolam 2 Mg/2 Ml Vial IV 12/11/24 23:00 ONCE PRN Pre-Op Anxiety Rivaroxaban 20 mg 12/11/24 18:30 Rivaroxaban 20 Mg Tab PO PC-SUPPER RIAZ Protocol Sodium Chloride 12 ml 12/11/24 15:29 Sodium Chloride 0.9% Flush 10 Ml Syringe IV Q12HR PRN Line Flush Intake and Output 12/11/24 12/11/24 12/11/24 06:59 14:59 22:59 Intake Total 1437.3 Balance 1437.3 Intake: IV 1437.3 Other: Weight 100.6 kg Patient Weight 12/12/24 06:59 Weight 100.6 kg 12/11/24 10:35 12/11/24 10:35
--- NOTE | 2024-12-11 15:46 | P.PRLE ---
RE: Kwasi Cardoza Dear Dr. Lemos Mr. Cardoza underwent mapping of the left and right atrial. In 2021 I performed an A-fib ablation with PVI and linear ablation in the left atrium Pulmonary veins were found to be durably and completely isolated since his first ablation. There was a very small In the left atrial roof of a patchy nature Therefore I performed linear ablation in the left and right atria but I still had to electrically cardiovert him at the end of the procedure Hopefully he maintains sinus rhythm with this ablation. If in the future he continues to have A-fib then I would use dofetilide since his creatinine is completely normal thank you for entrusting me with the care of the patient Warm regards Sincerely Tacos Combs
[2024-12-11] MEDS: ACETAMINOPHEN IV (For NPO) 1,000 MG in EMPTY BAG 1 BAG IVPB ONE (15:57)
--- NOTE | 2024-12-11 16:08 | P.EPPROC ---
- EP Procedure Note Electrophysiology Procedure Note: Diagnosis Persistent atrial fibrillation, failed prior therapy and recurrence of the an initial A-fib ablation in 2021 Final diagnosis Persistent atrial fibrillation with completely isolated pulmonary veins at an antral level from prior ablation Very narrow gap In the left atrial roof in its midsection from prior ablation Linear ablation in the left and right atria performed 1. Left atrial roof ablation along the anterior aspect 2. Left atrial septal ablation 3. Anterior LA wall ablation for mitral reentry 4. Ablation for typical atrial flutter Details of the procedure Patient was brought to the EP lab in a fasting state. Written informed consent was obtained prior to the procedure general anesthesia provided. Venous sheaths placed in the right left femoral veins and mapping and diagnosing catheters placed. Later intracardiac echo and ablation catheter placed and a Penta ray catheter placed IV heparin started and ACT above 350 seconds CS catheter placed first. Patient was in atrial fibrillation Intracardiac echo revealed no left atrial mass or thrombus Left and right transseptal catheterization performed under fluoroscopy and with intracardiac echo guidance RA pressures 10/3/7 mmHg LV pressures 20/1/11 mmHg Visigo sheath placed successfully across the interatrial septum/fossa ovalis A Penta ray catheter placed. Left atrial mapping performed Results of the mapping showed Pulmonary veins were all completely isolated at the antral level For most part the left atrial roof was also well ablated with a very narrow patchy gap in the mid section The following RF ablations were performed First ablation on the anterior aspect of the left atrial roof was performed from the left superior to the right superior pulmonary veins successfully. No gaps left 2. Left atrial septal ablation performed just posterior to the transseptal puncture and connected from the left atrial roof to the inferior pulmonary vein 3. Mitral isthmus reentry ablation performed, anterior mitral line connecting the mitral annulus to the septal aspect of the left atrial roof. Scar was noted in the mid anterior wall of the left atrium and the line was grafted to cut across the areas of patchy scar in the left atrium 4. Ablation for typical atrial flutter performed in the cavotricuspid isthmus with a complete line of block Thereafter electrical cardioversion was performed. Bidirectional block was proven across the RF line IV atropine given Sinus cycle length 1338 ms, WI interval 200 ms, QRS 99 ms and QT interval 450 ms AH interval 74 and HV interval 37 ms Sinus node recovery times were 1254 ms AV node Wenckebach block 570 ms All catheters were then removed and venous punctures were sealed with vascular devices Patient Toller procedure well without any acute complications No pericardial effusion at the end of the procedure IV heparin was stopped. No reversal given
[2024-12-11] MEDS: LACTATED RINGERS 1,000 ML IV SCH (18:41)
[2024-12-11] MEDS: RIVAROXABAN 20 MG TAB PO SCH (18:45)
[2024-12-11] MEDS ORDERED: ACETAMINOPHEN TAB 325 MG TAB PO PRN (22:00)
[2024-12-11] MEDS: lisinopriL 10 MG TAB PO SCH (22:06)
[2024-12-11] MEDS: ATORVASTATIN 20 MG TAB PO SCH (22:07)
[2024-12-12] MEDS: LISINOPRIL-HCTZ 20-12.5 MG 1 EACH TAB PO SCH (08:12)
[2024-12-12 08:13] VITALS: BP 105/63; PULSE 76; RESP 18; TEMP 98.6
--- NOTE | 2024-12-14 11:08 | P.DS ---
Providers Attending physician: Tacos Combs Primary care physician: [facility] Course: Patient is doing well. No chest discomfort dizziness lightheadedness or palpitations following A-fib ablation He underwent mapping of the left atrium which revealed pulmonary veins that were isolated durably at the antral level. There was a very small gap in the mid section of the left atrial roof He underwent multiple linear ablations including left atrial roof ablation, mitral isthmus ablation of the anterior wall, left atrial septal ablation and ablation for typical atrial flutter Subsequently he was electrically cardioverted On examination his heart sounds are normal breath sounds are clear vitals are stable Impression Persistent atrial fibrillation refractory atrial therapy Status post linear ablation in the left and right atria as described above Underlying sick sinus syndrome Plan continue anticoagulation discharge home today If he has a recurrence of atrial fibrillation I would opt for dofetilide rather than further ablations Plan - Discharge Summary Discharge Rx Participant: No New Discharge Prescriptions: Continue Simvastatin [Zocor] 40 mg PO HS Rivaroxaban [Xarelto] 20 mg PO PC-SUPPER Lisinopril-Hctz 20-12.5 mg [Zestoretic 20-12.5] 1 tab PO QAM Ascorbic Acid [Vitamin C] 2,000 mg PO DAILY lisinopriL [Zestril] 10 mg PO HS Acetaminophen [Tylenol Extra Strength] 1,000 mg PO Q6HR PRN PRN Reason: Pain Multivitamins, Thera [Multivitamin (formulary)] 1 tab PO DAILY Cholecalciferol [Vitamin D3 (25 Mcg = 1000 Iu)] 25 mcg PO DAILY Niacinamide 500 mg PO BID Discharge Medication List Simvastatin [Zocor] 40 mg PO HS 09/13/14 [History] Rivaroxaban [Xarelto] 20 mg PO PC-SUPPER 06/22/19 [History] Acetaminophen [Tylenol Extra Strength] 1,000 mg PO Q6HR PRN 08/05/21 [History] Lisinopril-Hctz 20-12.5 mg [Zestoretic 20-12.5] 1 tab PO QAM 11/18/21 [History] Multivitamins, Thera [Multivitamin (formulary)] 1 tab PO DAILY 11/18/21 [History] Ascorbic Acid [Vitamin C] 2,000 mg PO DAILY 10/29/22 [History] Cholecalciferol [Vitamin D3 (25 Mcg = 1000 Iu)] 25 mcg PO DAILY 10/29/22 [History] Niacinamide 500 mg PO BID 07/11/24 [History] lisinopriL [Zestril] 10 mg PO HS 07/11/24 [History] Follow up Appointment(s)/Referral(s): Tarun Reed MD [STAFF PHYSICIAN] - 1 Week (Please keep previously made franco ointment on at 3:45pm, at the [place] Office) Patient Instructions/Handouts: Cardiac Ablation (DC) Activity/Diet/Wound Care/Special Instructions: Post EP study - Ablation instructions 1. Keep access sites dry for 2 days. 2. No heavy lifting or straining for 2 days. 3. Avoid bending the hips repeatedly for 2 days. 4. You may go up and down stairs slowly 5. If you have had an ablation for atrial fibrillation or atrial flutter and are on a blood thinner, do not stop the blood thinner even temporarily for 3 months post ablation Call if the following is noted 1. Bleeding, increasing swelling or pain at the access sites. 2. Increasing chest discomfort, especially upon taking a deep breath. 3. Increasing shortness of breath, at rest or with exertion. 4. Undue cough / phlegm 5. Difficulty or pain while swallowing. 6. Pain or change in color in the extremities. 7. Fever, chills, rigors. 8. Increasing headache or neurologic symptoms. 9. Dizziness, fainting, palpitations For patients who have undergone an A-fib ablation /atrial flutter ablation Strict instruction; do NOT stop anticoagulation (Eliquis/Xarelto/Pradaxa) for the next 2 months temporarily, for any elective, nonurgent surgery. This increases the risk of stroke, post A-fib ablation Discharge Disposition: HOME SELF-CARE
== END 2024-12-12 11:58 | disposition home or self-care (01) ==
LOC: CATHEP 10:15 → 6NMEDSUR 14:45 → CATHEP 12-12 11:58
PROVIDERS: ATTEND Internal Medicine Clinical Cardiac Electrophysiology
DX: I48.19 Other persistent atrial fibrillation (principal); E78.5 Hyperlipidemia, unspecified; I10 Essential (primary) hypertension; I25.10 Atherosclerotic heart disease of native coronary artery without angina pectoris; G47.33 Obstructive sleep apnea (adult) (pediatric); I48.3 Typical atrial flutter; M19.90 Unspecified osteoarthritis, unspecified site; H91.90 Unspecified hearing loss, unspecified ear; K21.9 Gastro-esophageal reflux disease without esophagitis; Z79.01 Long term (current) use of anticoagulants; Z85.820 Personal history of malignant melanoma of skin; Z87.891 Personal history of nicotine dependence; Z79.899 Other long term (current) drug therapy; Z99.89 Dependence on other enabling machines and devices
CPT/HCPCS: 93655; 93656; 93657; 86900; 86901; 80048; 85025; 86850; C1759; C1894; C1769 ×2; C1766; C1760 ×2; C1730; C1731; C1732; J2250; J0330; J1644 ×3; J2710; J2405; J2003; J0461; J0131; J2704; J2371; J1596; 93005